=== PATIENT | female | born 1945 | race Caucasian/White ===

== ENCOUNTER 2019-09-25 01:10 | Emergency (ER) | payer MEDICAID, SELFPAY ==
[2019-09-25] VITALS (13 sets, daily range): BP systolic 109–197; BP diastolic 49–97; PULSE 61–84; RESP 14–18; TEMP 37.1–37.4; O2SAT 91–100; BMI 25.8
--- NOTE | 2019-09-25 01:27 | ED_ITS ---
Entered by Delfina Hernandez, acting as scribe for Michael Adamson DO HPI - Abdominal Pain General: Chief Complaint: Abdominal Pain Stated Complaint: N/V Time Seen by Provider: 09/25/19 01:27 History of Present Illness: HPI narrative: 74 yo f came to the er by ems for abd pain. Onset was today. Pt states that she has pain all over her abd and pain in her back. Pt states that she has been throwing up since last wednesday. Pt states that she has had a fever and chills. MD elicited complaint: abdominal pain Pertinent past history: none Onset (ago): day(s) Pain Consistency: constant Location: Other (all over the abd ) Severity: moderate Quality: other (pain) Radiation: back Exacerbating factors: nothing Relieving factors: nothing Associated Symptoms: Reports chills, fever(s), nausea and vomiting; Denies dysuria, hematochezia, hematuria and melena Related Data: Patient : No Review of Systems Const: Reports: fever and chills Eyes: Denies: change in vision or blurry vision ENMT: Denies: painful swallowing, swelling of lips/tongue, bleeding gums, dental pain, Change in hearing, nose bleeds, post nasal drip or facial/sinus pain Card: Denies: chest pain, palpitations, irregular heart rhythm, edema, swelling of feet/ankles, shortness of breath on exertion or shortness of breath when lying down Resp: Denies: shortness of breath, productive cough, non-productive cough or wheezing GI: Reports: nausea and vomiting; Denies: blood in stool or black tarry stool : Denies: painful urination or blood in urine Musc: Denies: neck pain, back pain, redness or joint warmth Skin/Breast: Denies: rash, itching or redness Neuro: Denies: headache, dizziness, vertigo, confusion or seizure-like activity Psych: Denies: anxiety, visual hallucinations or auditory hallucinations PFSH ED PFSH: Statuses (acute, chronic, etc) shown below reflect problem list status as previously entered and may not be historically accurate Social History Smoking and tobacco status: never smoked Physical Exam Const: COMMON NORMALS: alert GENERAL APPEARANCE: well developed ORIENTATION/CONSCIOUSNESS: Yes awake, Yes oriented to person, Yes oriented to place and Yes oriented to time HENMT: COMMON NORMALS: normocephalic, external ears normal, external nose normal and moist oral mucous membranes HEAD & SCALP: normocephalic; no scalp tenderness FACE & SINUS: normal facial exam NOSE: external nose normal and no nasal discharge EXTERNAL EAR: Yes external ears normal MARYANN TH: tongue normal TEETH & GINGIVA: no abnormal tooth and associated gingiva THROAT: posterior oropharynx normal; no peritonsillar mass Eye: COMMON NORMALS: PERRL, EOMs intact bilaterally and conjunctivae normal EYELID: eyelids normal CONJUNCTIVA: Yes conjunctivae normal PUPIL: Yes PERRL Neck/C-Spine: COMMON NORMALS: full ROM GENERAL: Yes anterior neck swelling and No tracheal deviation CERVICAL SPINE: Yes normal cervical lordosis, No cervical spine tenderness, No step off deformity, No paracervical muscle tenderness and No paracervical muscle spasm Chest: COMMONS NORMALS: inspection of chest normal CHEST: Yes symmetrical chest wall rise and No tenderness Resp: COMMON NORMALS: clear to auscultation bilaterally EFFORT & INSPECTION: No tachypneic, No respiratory distress, No retractions, No uses accessory muscles and No tracheal deviation AUSCULTATION: clear to auscultation bilaterally, no rhonchi, no wheezes and lung sounds not diminished Cardio: COMMON NORMALS: regular rate and regular rhythm RATE: regular rate RHYTHM: regular rhythm HEART SOUNDS: no murmurs PERIPHERAL PULSES: radial pulses present GI: INSPECTION: No abdominal distension AUSCULTATION: No hyperactive bowel sounds and No hypoactive bowel sounds PALPATION: No tender, No guarding and N o rigid PERCUSSION: no dullness to percussion and no tympanic to percussion : COMMON NORMALS: Yes no CVA tenderness BLADDER/KIDNEY EXAM: Yes no CVA tenderness Back/Pelvis: COMMON NORMALS: no CVA tenderness PELVIS: Yes no pain with anterior-posterior compression and Yes no pain with lateral compression Neuro: SENSORIUM/ORIENTATION: Yes alert, Yes oriented to person, Yes oriented to place and Yes oriented to time Psych: COMMON NORMALS: mental status grossly normal and speech normal SPEECH: Yes normal speech Skin: COMMON NORMALS: no rashes or lesions noted GENERAL SKIN EXAM: no rashes or lesions noted Course ED course: 74-year-old female essentially with intractable nausea and vomiting with epigastric pain. She has a history of a cholecystectomy. She says that she has had these symptoms before, and been admitted and then released without cause. She presents today with a CT showing a pancreatic head mass, and ductal dilatation of the bile duct and pancreatic duct that are significant. These were not present on a CT several months ago. The concern is that she would need a stent for this. No gastroenterology G service available at this hospital. We spoke with [facility] in [place], who are willing to take the patient, and have accepted, but there are no free beds currently. They will call when a bed is available. The patient will be checked out at shift change. Vital Signs: Vital signs: Vital Signs Temperature 98.7 F 09/25/19 03:40 Pulse Rate 61 09/25/19 06:02 Respiratory Rate 18 09/25/19 06:02 Blood Pressure 114/77 09/25/19 06:02 Pulse Oximetry 93 09/25/19 06:02 MDM - Abdominal Pain Lab Data: Labs: Lab Results 09/25/19 09/25/19 09/25/19 Range/Units 01:19 01:46 01:46 WBC 10.4 H (4.0-10.0) 10^3/ uL RBC 5.01 (4.1-5.3) 10^6/u L Hgb 14.2 (11.5-15.3) g/dL Hct 40.7 (37.0-47.0) % MCV 81.2 (81-99) fL MCH 28.3 (28.0-34.0) pg MCHC 34.9 (30.0-36.0) g/dL RDW 12.2 (12.1-15.1) % Plt Count 318 (130-400) 10^3/c mm MPV 9.2 (7.4-10.4) fL Neut % (Auto) 73.8 % Lymph % (Auto) 18.6 % [place] % (Auto) 6.7 % Eos % (Auto) 0.1 % Baso % (Auto) 0.5 % Neut # (Auto) 7.7 (1.8-7.7) 10^3/u L Lymph # (Auto) 1.9 (0.8-4.8) 10^3/u L [place] # (Auto) 0.7 (0.2-0.9) 10^3/u L Eos # (Auto) 0.0 (0.0-0.8) 10^3/u L Baso # (Auto) 0.1 (0.0-0.1) 10^3/u L Nucleated RBC % (a uto) 0 % Nucleated RBCs # 0.0 /100WBC Sodium 137 (136-145) mmol/L Potassium 3.2 L (3.5-5.1) mmol/L Chloride 99 (98-107) mmol/L Carbon Dioxide 20 L (22-29) mmol/L Anion Gap 21.2 H (5-19) BUN 19 (8-23) mg/dL Creatinine 0.6 (0.5-0.9) mg/dL Glucose 153 H (74-106) mg/dL Calcium 11.0 H (8.8-10.2) mg/Dl Total Bilirubin 1.3 H (0.15-1.2) mg/dL AST 16 (0-32) U/L ALT 12 (0-33) U/L Alkaline Phosphata se 165 H (35-105) IU/L Total Protein 8.0 (6.6-8.7) g/dL Albumin 5.1 (3.5-5.2) g/dL Globulin 2.9 (1.3-4.6) g/dL Lipase 12 L (13-60) U/L Urine Color Yellow (Yellow) Urine Appearance Cloudy (CLEAR) Urine pH 6.5 (5-7) Ur Specific Gravit y 1.015 (1.005-1.030) Urine Protein 3+ H (Negative) Urine Glucose (UA) Norm (Normal) Urine Ketones 3+ H (Negative) Urine Occult Blood 2+ H (Negative) Urine Nitrate Negative (Negative) Urine Bilirubin Neg (NEGATIVE) Urine Urobilinogen 1 H (Negative) mg/dL Ur Leukocyte Stephanie ase 1+ H (Negative) Urine RBC 0-4 H (0-2) /hpf Urine WBC 5-10 H (0-5) /hpf Ur Squamous Epith Cells 5-10 H (0-5) Urine Bacteria 1+ H (NONE) Urine Mucus 1+ Coding Level of Care Code ED Concession Cashier for g Fwd The documentation recorded by the [place] Stephanie Lyn, accurately reflects the service I personally performed and the decisions made by me, Michael Adamson, DO Sep 25, 2019 01:10
--- NOTE | 2019-09-25 01:37 | CTR_ITS ---
PROCEDURE INFORMATION: Exam: CT Abdomen And Pelvis With Contrast Exam date and time: 09/25/2019 1:48 AM Age: 74 years old Clinical indication: Abdominal pain; Generalized; Prior surgery; Surgery date: 6+ months; Surgery type: Gb, hyst, appy; Additional info: Abd pain TECHNIQUE: Imaging protocol: Computed tomography of the abdomen and pelvis with intravenous contrast. Total DLP: 690.6 mGy-cm Radiation optimization: All CT scans at this facility use at least one of these dose optimization techniques: automated exposure control; mA and/or kV adjustment per patient size (includes targeted exams where dose is matched to clinical indication); or iterative reconstruction. Contrast material: OMNI 300; Contrast volume: 95 ml; Contrast route: IV; COMPARISON: CT abdomen pelvis w con* [id number] 11/15/2018 6:17 PM FINDINGS: Lungs: There are small pulmonary nodularity seen bilaterally, the largest are seen on the left measuring up to 6.7 mm. Mediastinum: There is a small hiatal hernia. Liver: Normal. No mass. Gallbladder and bile ducts: Status post cholecystectomy. The the common bile duct is dilated to 9.7 mm. Additionally, the main pancreatic duct is greatly enlarged measuring up to 9.3 mm distally. There is a soft tissue attenuation mass seen in the pancreatic head worrisome for a primary pancreatic malignancy. It measures 2.1 cm AP dimension by 2.4 cm transverse dimension by 2.8 cm craniocaudal dimension. Pancreas: See Gallbladder And Bile Ducts Finding. Spleen: Normal. No splenomegaly. Adrenals: Normal. No mass. Kidneys and ureters: There is a 6 mm simple appearing cyst seen in the left kidney. Stomach and bowel: Unremarkable. No obstruction. No mucosal thickening. Appendix: The status post appendectomy. Intraperitoneal space: Unremarkable. No free air. No significant fluid collection. Vasculature: Unremarkable. No abdominal aortic aneurysm. Lymph nodes: Unremarkable. No enlarged lymph nodes. Bladder: Unremarkable as visualized. Reproductive: Status post hysterectomy. Bones/joints: Unremarkable. No acute fracture. Soft tissues: Unremarkable. CT/CT abdomen pelvis w con* [id number] IMPRESSION: 1. There is prominent dilatation of the common bile duct and main pancreatic duct likely secondary to an obstructive mass within the pancreatic head. A primary pancreatic malignancy is of concern. 2. Simple appearing 6 mm left renal cyst. No further workup needed. 3. Multiple small pulmonary nodularity is seen, slightly more numerous on the left, the largest measuring 6.7 mm.For patients at low risk (minimal or absent history of smoking and of other known risk factors), recommend CT at 3-6 months, then consider CT at 18-24 months. For patients at high risk (history of smoking or of other known risk factors), recommend CT at 3-6 months, then CT at 18-24 months. (Vera et al., Fleischner Society, 2017) COMMENT: Consistent with the [employer]'s Incidental Findings Committee Report (J Am Jose Radiol 2010): Unless the patient's specific circumstances suggest otherwise, any liver lesion 0.5 cm or less, any cystic kidney lesion less than 1.0 cm, and/or any adrenal lesion 1.0 cm or less not otherwise characterized in this report as possessing suspicious or indeterminate imaging features is/are highly likely to be benign and do not require follow-up imaging or biopsy. Radiation Dose CTDIVOL = (mGy): DLP = 690.6 (mGy-cm)
[2019-09-25 01:54] LABS: Bacteria Urine 1+; Bilirubin Urine Neg (NEGATIVE); Blood Urine 2+ (Negative); Glucose Urine UA Norm (Normal); Ketones Urine 3+ (Negative); Leukocyte Esterase Urine 1+ (Negative); Mucus Urine 1+; Nitrate Urine Negative (Negative); Protein Urine 3+ (Negative); RBC Urine 0-4 /hpf (0-2); Specific Gravity, Urine 1.015 (1.005-1.030); Urine Appearance Cloudy (CLEAR); Urine Color Yellow (Yellow); Urobilinogen Urine 1 mg/dL (Negative); pH Urine 6.5 (5-7)
[2019-09-25] MEDS: morphine 4 mg/mL SDV 1 mL IVP ×2 (01:56→10:38)
[2019-09-25] MEDS: ondansetron 2 mg/ML SDV 2 mL 4 MG IVP ×2 (01:56→17:19)
[2019-09-25] MEDS: sodium chloride 0.9% 1,000 ML 999 ML IV (01:56)
[2019-09-25 01:57] LABS: Basophils # 0.1 10^3/uL (0.0-0.1); Basophils % 0.5 %; Eosinophils % 0.1 %; Hematocrit 40.7 % (37.0-47.0); Hemoglobin 14.2 g/dL (11.5-15.3); Lymphocytes # 1.9 10^3/uL (0.8-4.8); Lymphocytes % 18.6 %; Mean Corpuscular HGB Conc 34.9 g/dL (30.0-36.0); Mean Corpuscular Hemoglobin 28.3 pg (28.0-34.0); Mean Corpuscular Volume 81.2 fL (81-99); Mean Platelet Volume 9.2 fL (7.4-10.4); Monocytes # 0.7 10^3/uL (0.2-0.9); Monocytes % 6.7 %; Neutrophils # 7.7 10^3/uL (1.8-7.7); Neutrophils % 73.8 %; Nucleated Red Blood Cells % 0 %; Platelet Count 318 10^3/cmm (130-400); Red Blood Count 5.01 10^6/uL (4.1-5.3); Red Cell Distribution Width 12.2 % (12.1-15.1); White Blood Count 10.4 10^3/uL (4.0-10.0)
--- NOTE | 2019-09-25 02:02 | PC.NURSE ---
Introduced self to patient and initiated vital signs. Pt is A&O x 4 and agreeable. Pt states that the reason for the ER visit today is due to vomiting and dry heaving since last PM. Pt also complaining of abdominal pain from vomiting. Reassured patient of needs and will continue to monitor. Awaiting provider at bedside.
[2019-09-25 02:10] LABS: Alanine Aminotransferase 12 U/L (0-33); Albumin Level 5.1 g/dL (3.5-5.2); Alkaline Phosphatase 165 IU/L (35-105); Anion Gap 21.2 (5-19); Aspartate Amino Transferase 16 U/L (0-32); Blood Urea Nitrogen 19 mg/dL (8-23); Carbon Dioxide 20 mmol/L (22-29); Chloride 99 mmol/L (98-107); Globulin 2.9 g/dL (1.3-4.6); Glucose 153 mg/dL (74-106); Lipase 12 U/L (13-60); Potassium 3.2 mmol/L (3.5-5.1); Sodium 137 mmol/L (136-145); Total Bilirubin 1.3 mg/dL (0.15-1.2)
[2019-09-25] MEDS: iohexol 300 mg/mL 100 mL Btl IV (03:45)
[2019-09-25 06:23] LABS: Urine Appearance Clear (CLEAR); Urine Color Yellow (Yellow); pH Urine 8 (5-7)
[2019-09-25] MEDS: fentaNYL 50 mcg/mL INJ 2mL IVP ×2 (06:23→17:20)
[2019-09-25 06:24] LABS: Add Urine Microscopic? YES; Bilirubin Urine Neg (NEGATIVE); Blood Urine Neg (Negative); Glucose Urine UA Norm (Normal); Ketones Urine 1+ (Negative); Leukocyte Esterase Urine Negative (Negative); Nitrate Urine Negative (Negative); Protein Urine 1+ (Negative); Sulfosalicylic Acid Urine Negative; Urobilinogen Urine Norm (Negative)
--- NOTE | 2019-09-25 19:07 | PC.NURSE ---
REPORT RECEIVED FROM JULIA JAMES AND CARE TRANSFERRED TO JULIA LEZAMA
== END 2019-09-25 19:41 ==
PROVIDERS: Emergency Provider Emergency Medicine; Family Provider Nurse Practitioner Primary Care
DX: R10.9 Unspecified abdominal pain (principal)
CPT/HCPCS: 74177; 80053; 81001; 81003; 83690; 85025; 96360; 96374; 99283; J2270; J2405; J3010; J7030; Q9967

== ENCOUNTER 2019-10-03 14:21 | Emergency (ER) | payer MEDICAID, SELFPAY ==
[2019-10-03] VITALS (10 sets, daily range): BP systolic 116–185; BP diastolic 60–112; PULSE 63–80; RESP 14–22; TEMP 36.4–37.8; O2SAT 94–99; BMI 25.0
[2019-10-03 14:56] LABS: Basophils # 0.1 10^3/uL (0.0-0.1); Basophils % 0.9 %; Eosinophils # 0.2 10^3/uL (0.0-0.8); Eosinophils % 2.2 %; Hematocrit 41.3 % (37.0-47.0); Hemoglobin 14.4 g/dL (11.5-15.3); Lymphocytes # 1.7 10^3/uL (0.8-4.8); Lymphocytes % 21.9 %; Mean Corpuscular HGB Conc 34.9 g/dL (30.0-36.0); Mean Corpuscular Hemoglobin 28.3 pg (28.0-34.0); Mean Corpuscular Volume 81.1 fL (81-99); Mean Platelet Volume 9.1 fL (7.4-10.4); Monocytes # 0.5 10^3/uL (0.2-0.9); Monocytes % 6.5 %; Neutrophils # 5.3 10^3/uL (1.8-7.7); Nucleated Red Blood Cells % 0 %; Platelet Count 349 10^3/cmm (130-400); Red Blood Count 5.09 10^6/uL (4.1-5.3); Red Cell Distribution Width 12.1 % (12.1-15.1); White Blood Count 7.8 10^3/uL (4.0-10.0)
[2019-10-03 14:57] LABS: Add Urine Microscopic? NO
[2019-10-03 15:04] LABS: Bilirubin Urine Neg (NEGATIVE); Blood Urine Neg (Negative); Glucose Urine UA Norm (Normal); Ketones Urine 1+ (Negative); Leukocyte Esterase Urine Negative (Negative); Nitrate Urine Negative (Negative); Protein Urine Neg (Negative); Urine Appearance Clear (CLEAR); Urine Color Yellow (Yellow); Urobilinogen Urine Norm (Negative); pH Urine 7 (5-7)
--- NOTE | 2019-10-03 15:09 | W.ED.ABDPA2 ---
HPI - Abdominal Pain General: Chief Complaint: Abdominal Pain Stated Complaint: N/V Time Seen by Provider: 10/03/19 14:23 Review of Systems Musc: Denies: joint warmth PFSH ED PFSH: Statuses (acute, chronic, etc) shown below reflect problem list status as previously entered and may not be historically accurate Social History Smoking and tobacco status: never smoked Course Vital Signs: Vital signs: Vital Signs Temperature 100.1 F H 10/03/19 14:27 Pulse Rate 80 10/03/19 14:27 Respiratory Rate 16 10/03/19 14:27 Blood Pressure 185/99 10/03/19 14:27 Pulse Oximetry 98 10/03/19 14:27 MDM - Abdominal Pain Lab Data: Labs: Lab Results 10/03/19 10/03/19 Range/Units 14:30 14:30 WBC 7.8 (4.0-10.0) 10^3/ uL RBC 5.09 (4.1-5.3) 10^6/u L Hgb 14.4 (11.5-15.3) g/dL Hct 41.3 (37.0-47.0) % MCV 81.1 (81-99) fL MCH 28.3 (28.0-34.0) pg MCHC 34.9 (30.0-36.0) g/dL RDW 12.1 (12.1-15.1) % Plt Count 349 (130-400) 10^3/c mm MPV 9.1 (7.4-10.4) fL Neut % (Auto) 68.0 % Lymph % (Auto) 21.9 % [place] % (Auto) 6.5 % Eos % (Auto) 2.2 % Baso % (Auto) 0.9 % Neut # (Auto) 5.3 (1.8-7.7) 10^3/u L Lymph # (Auto) 1.7 (0.8-4.8) 10^3/u L [place] # (Auto) 0.5 (0.2-0.9) 10^3/u L Eos # (Auto) 0.2 (0.0-0.8) 10^3/u L Baso # (Auto) 0.1 (0.0-0.1) 10^3/u L Nucleated RBC % (a uto) 0 % Nucleated RBCs # 0.0 /100WBC Urine Color Yellow (Yellow) Urine Appearance Clear (CLEAR) Urine pH 7 (5-7) Ur Specific Gravit y 1.010 (1.005-1.030) Urine Protein Neg (Negative) Urine Glucose (UA) Norm (Normal) Urine Ketones 1+ H (Negative) Urine Occult Blood Neg (Negative) Urine Nitrate Negative (Negative) Urine Bilirubin Neg (NEGATIVE) Urine Urobilinogen Norm (Negative) mg/dL Ur Leukocyte Stephanie ase Negative (Negative) Discharge Plan Discharge Prescriptions: No Action cetirizine 10 mg Tablet 10 mg PO DAILY RF: 0 omeprazole 40 mg Capsule,Delayed Release(Dr/Ec) 40 mg PO DAILY RF: 0 levothyroxine 88 mcg Tablet 88 mcg PO DAILY RF: 0 trazodone 150 mg Tablet 150 mg PO BEDTIME PRN (Reason: Sleep) RF: 0 fluticasone propionate [Flonase Allergy Relief] 50 mcg/actuation [place],Suspension 1 spray INTRANASAL BID PRN (Reason: UNKNOWN) RF: 0 duloxetine [Cymbalta] 30 mg Capsule,Delayed Release(Dr/Ec) 30 mg PO DAILY RF: 0 darifenacin [Enablex] 7.5 mg Tablet Extended Release 24 Hr 7.5 mg PO DAILY RF: 0 Miralax 17 gram Powder In Packet 17 g PO DAILY PRN (Reason: Constipation) RF: 0 amlodipine 5 mg Tablet 5 mg PO DAILY RF: 0 Coding Level of Care Code ED [employer] Chief Scientist for Ezra Molina
[2019-10-03 15:13] LABS: Alanine Aminotransferase 15 U/L (0-33); Albumin Level 4.6 g/dL (3.5-5.2); Alkaline Phosphatase 139 IU/L (35-105); Anion Gap 20.5 (5-19); Aspartate Amino Transferase 16 U/L (0-32); Blood Urea Nitrogen 16 mg/dL (8-23); Calcium 10.9 mg/Dl (8.8-10.2); Carbon Dioxide 21 mmol/L (22-29); Chloride 97 mmol/L (98-107); Globulin 3.9 g/dL (1.3-4.6); Glucose 137 mg/dL (74-106); Lipase 66 U/L (13-60); Potassium 3.5 mmol/L (3.5-5.1); Sodium 135 mmol/L (136-145); Total Bilirubin 0.9 mg/dL (0.15-1.2); Total Protein 8.5 g/dL (6.6-8.7)
[2019-10-03] MEDS: HYDROmorphone 1 mg/mL INJ 1 mL 0.5 MG IVP (15:47)
--- NOTE | 2019-10-03 16:14 | ED_ITS ---
HPI - Abdominal Pain General: Chief Complaint: Abdominal Pain Stated Complaint: N/V Time Seen by Provider: 10/03/19 14:23 Source: patient Mode of arrival: ambulatory Limitations: no limitations History of Present Illness: HPI narrative: Patient is a 74-year-old female who presents to ED today with complaints of continued abdominal pain, nausea, intermittent vomiting; patient presented to our facility approximately a week ago for similar symptoms and had a CT scan which showed a mass on her pancreatic head; she was subsequently transferred to [place] and had a pancreatic stent placed; patient states she was discharged home on pain medications and a follow- up visit in approximately a week for them to surgically remove mass; patient states her pain medications with oxycodone but states when she took one it made her nausea and vomiting worse and hyped her up so she threw them away; patient states her abdominal pain today is not any worse than what she has had since ons et; reports her nausea and vomiting is not any worse; she has not been running fevers; having normal bowel movements; urinary symptoms MD elicited complaint: abdominal pain Pertinent past history: other (Recent diagnosis of pancreatic head mass) Onset (ago): week(s) Pain Consistency: constant Location: Diffuse Exacerbating factors: eating Associated Symptoms: Reports nausea and vomiting; Denies change in bowel habits, chills, dysuria, fever(s), hematemesis, fecal incontinence and syncope Review of Systems Const: Denies: fever or chills Eyes: Denies: change in vision or blurry vision Card: Denies: chest pain, palpitations, irregular heart rhythm, lightheadedness, syncope or shortness of breath on exertion Resp: Denies: shortness of breath, productive cough or pain on inspiration GI: Reports: abdominal pain, nausea and vomiting; Denies: vomiting blood, fecal incontinence, change in bowel habits or painful bowel movements : Denies: painful urination Musc: Denies: neck pain, back pain or joint pain Skin/Breast: Denies: rash PFSH ED PFSH: Statuses (acute, chronic, etc) shown below reflect problem list status as previously entered and may not be historically accurate Social History Smoking and tobacco status: never smoked Physical Exam Const: COMMON NORMALS: no apparent distress, oriented x3, alert and well nourished HENMT: COMMON NORMALS: normocephalic and head/scalp atraumatic HEAD & SCALP: normocephalic and atraumatic Neck/C-Spine: COMMON NORMALS: full ROM, no lymphadenopathy, supple and no meningeal signs Chest: COMMONS NORMALS: inspection of chest normal Resp: COMMON NORMALS: normal respiratory effort and clear to auscultation bilaterally AUSCULTATION: clear to auscultation bilaterally Cardio: COMMON NORMALS: regular rate and regular rhythm RATE: regular rate RHYTHM: regular rhythm GI: COMMON NORMALS: normal to inspection, nondistended, normoactive bowel sounds, soft to palpation, no hepatosplenomegaly and no masses PALPATION: Yes soft, Yes tender (mild throughout; non-surgical abdomen ) and Yes no hepatosplenomegaly : COMMON NORMALS: Yes no CVA tenderness BLADDER/KIDNEY EXAM: Yes no CVA tenderness Back/Pelvis: COMMON NORMALS: no CVA tenderness and thoracic and lumbar spine normal to inspection Extremity: COMMON NORMALS: normal to inspection Neuro: COMMON NORMALS: oriented x3 SENSORIUM/ORIENTATION: Yes alert MENINGEAL SIGNS: Yes no meningeal signs Skin: COMMON NORMALS: no rashes or lesions noted GENERAL SKIN EXAM: no rashes or lesions noted Course Vital Signs: Vital signs: Vital Signs Temperature 98.7 F 10/04/19 08:29 Pulse Rate 64 10/04/19 08:29 Respiratory Rate 18 10/04/19 08:29 Blood Pressure 136/87 10/04/19 08:29 Pulse Oximetry 97 10/04/19 08:29 MDM - Abdominal Pain MDM Narrative: Medical decision making narrative: pt holding down crackers/ice cream here; she appears in NAD; no episodes of vomiting throughout her stay; labs are non-concerning; lipase is 66; she is afebrile; reviewed with Dr. Watts who agrees there is no reason for repeat CT scan today as she states her symptoms are not worsening in any way following her pancreatic stent. Recommend she contact [facility] tomorrow for further instructions. Lab Data: Labs: Lab Results 10/03/19 10/03/19 10/03/19 Range/Units 14:30 14:30 14:30 WBC 7.8 (4.0-10.0) 10^3/ uL RBC 5.09 (4.1-5.3) 10^6/u L Hgb 14.4 (11.5-15.3) g/dL Hct 41.3 (37.0-47.0) % MCV 81.1 (81-99) fL MCH 28.3 (28.0-34.0) pg MCHC 34.9 (30.0-36.0) g/dL RDW 12.1 (12.1-15.1) % Plt Count 349 (130-400) 10^3/c mm MPV 9.1 (7.4-10.4) fL Neut % (Auto) 68.0 % Lymph % (Auto) 21.9 % [place] % (Auto) 6.5 % Eos % (Auto) 2.2 % Baso % (Auto) 0.9 % Neut # (Auto) 5.3 (1.8-7.7) 10^3/u L Lymph # (Auto) 1.7 (0.8-4.8) 10^3/u L [place] # (Auto) 0.5 (0.2-0.9) 10^3/u L Eos # (Auto) 0.2 (0.0-0.8) 10^3/u L Baso # (Auto) 0.1 (0.0-0.1) 10^3/u L Nucleated RBC % (a uto) 0 % Nucleated RBCs # 0.0 /100WBC Sodium 135 L (136-145) mmol/L Potassium 3.5 (3.5-5.1) mmol/L Chloride 97 L (98-107) mmol/L Carbon Dioxide 21 L (22-29) mmol/L Anion Gap 20.5 H (5-19) BUN 16 (8-23) mg/dL Creatinine 0.7 (0.5-0.9) mg/dL Glucose 137 H (74-106) mg/dL Calcium 10.9 H (8.8-10.2) mg/Dl Total Bilirubin 0.9 (0.15-1.2) mg/dL AST 16 (0-32) U/L ALT 15 (0-33) U/L Alkaline Phosphata se 139 H (35-105) IU/L Total Protein 8.5 (6.6-8.7) g/dL Albumin 4.6 (3.5-5.2) g/dL Globulin 3.9 (1.3-4.6) g/dL Lipase 66 H (13-60) U/L Urine Color Yellow (Yellow) Urine Appearance Clear (CLEAR) Urine pH 7 (5-7) Ur Specific Gravit y 1.010 (1.005-1.030) Urine Protein Neg (Negative) Urine Glucose (UA) Norm (Normal) Urine Ketones 1+ H (Negative) Urine Occult Blood Neg (Negative) Urine Nitrate Negative (Negative) Urine Bilirubin Neg (NEGATIVE) Urine Urobilinogen Norm (Negative) mg/dL Ur Leukocyte Stephanie ase Negative (Negative) Discharge Plan Discharge Patient Disposition: Home, Self-Care Clinical Impression: Mass of pancreas Condition: Stable Prescriptions: New hydrocodone-acetaminophen 5-325 mg tablet 1 tab PO Q6H PRN (Reason: pain) Qty: 20 RF: 0 No Action cetirizine 10 mg Tablet 10 mg PO DAILY RF: 0 omeprazole 40 mg Capsule,Delayed Release(Dr/Ec) 40 mg PO DAILY RF: 0 levothyroxine 88 mcg Tablet 88 mcg PO DAILY RF: 0 trazodone 150 mg Tablet 150 mg PO BEDTIME PRN (Reason: Sleep) RF: 0 fluticasone propionate [Flonase Allergy Relief] 50 mcg/actuation [place],Suspension 1 spray INTRANASAL BID PRN (Reason: UNKNOWN) RF: 0 duloxetine [Cymbalta] 30 mg Capsule,Delayed Release(Dr/Ec) 30 mg PO DAILY RF: 0 darifenacin [Enablex] 7.5 mg Tablet Extended Release 24 Hr 7.5 mg PO DAILY RF: 0 Miralax 17 gram Powder In Packet 17 g PO DAILY PRN (Reason: Constipation) RF: 0 amlodipine 5 mg Tablet 5 mg PO DAILY RF: 0 Discharge Orders: Discharge Order (Routine); Ordered 10/03/19 Ordered By: Monica Canela Referrals: Fiona Henriquez CALL CENTER ASSISTANT [Family Provider] - Discharge Diet: Advance as tolerated Activity Restrictions/Additional Instructions: You need to contact [facility] tomorrow and speak to the surgeon's office that is scheduled to perform your surgery and see if they can possible move your surgery up due to discomfort. Continue taking your nausea meds as needed for nausea/vomiting. Dittmer diet may help. Try taking pain medications when you have food on your stomach-this may cut down on the unwanted side effects from the pain medications Coding Level of Care Code ED Scheduling Assistant for Chg Fwd Exam Problem Focused
--- NOTE | 2019-10-03 16:18 | PC.NURSE ---
PHYSICAL ASSESSMENT GENERAL / NEURO / PSYCH: Alert. Oriented X 4. GCS:15 HEENT: Mucous membranes are pink. RESPIRATORY: Respiration not labored. Breath sounds within normal limits. GI / : Abdomen soft and tender in the upper quadrants ( Bowel sounds within normal limits. Reports episodes of nausea and vomiting. Denies difficulties with urine or bowel elimination. SKIN: Skin is warm and dry
--- NOTE | 2019-10-03 16:27 | ECG_ITS ---
Measurements Intervals [facility] Rate: 72 P: 124 DC: 141 QRS: -62 QRSD: 98 T: 131 QT: 397 QTc: 435 ECTOPIC ATRIAL RHYTHM PATTERN CONSISTENT WITH PULMONARY DISEASE INCOMPLETE RIGHT BUNDLE BRANCH BLOCK [90+ ms QRS DURATION, TERMINAL R IN V1/V2, 40+ ms S IN I/aVL/V4/V5/V6] LEFT ANTERIOR FASCICULAR BLOCK [QRS AXIS <= -45, QR IN I, RS IN II] MODERATE ST DEPRESSION [0.05+ mV ST DEPRESSION] ABNORMAL QRS-T ANGLE [QRS-T AXIS DIFFERENCE > 60] Compared to ECG 11/15/2018 17:17:46 Ectopic atrial rhythm now present ST (T wave) deviation now present Sinus bradycardia no longer present Electronically Signed On 10-03-2019 22:09:25 BLACKSMITH SUPERVISOR by Madhu Chen M.D. [email or web address]
[2019-10-03] MEDS: sodium chloride 0.9% 1,000 ML 999 ML IV (17:02)
--- NOTE | 2019-10-03 18:12 | PC.NURSE ---
Patient resting. Still waiting for ride.
--- NOTE | 2019-10-03 18:14 | PC.NURSE ---
Patient reports significant improvement with GI Cocktail.
--- NOTE | 2019-10-03 19:22 | PC.NURSE ---
Introduced self to patient and initiated vital signs. Pt is A&O x 3 and agreeable. Pt states that the reason for the ER visit today is due to abdominal pain. Pt states that she feeling better at present and is trying to get some rest. Reassured patient of needs and will continue to monitor. Awaiting transportation.
[2019-10-04 01:00] VITALS: BP 148/61; PULSE 80; RESP 16; O2SAT 94
[2019-10-04] MEDS: HYDROcodone-acetaminophen 5-325 mg Tablet 1 TAB PO (01:31)
--- NOTE | 2019-10-04 06:01 | PC.NURSE ---
PATIENT REQUESTED [facility] JUICE AND WAS BROUGHT JUICE BY NURSE.
[2019-10-04 08:29] VITALS: BP 136/87; PULSE 64; RESP 18; TEMP 37.1; O2SAT 97
--- NOTE | 2019-10-04 08:31 | PC.NURSE ---
PT IS STILL WAITING IN ROOM FOR A RIDE. [facility] CALLED AND THEY DO NOT KNOW ANYTHING ABOUT THE TRIP. [facility] CALLED THEY STATE THAT THE PT WAS PICKED UP LAST NIGHT BUT COULD NOT BE DELIVERED D/T A WRONG ADDRESS. NEW RIDE SET UP AND CONFIRMATION NUMBER IS [id number]
--- NOTE | 2019-10-04 10:19 | PC.NURSE ---
PT STILL WAITING ON A RIDE. CALLED [facility] AGAIN AND THEY STATE THAT THE TAX COMPLIANCE REPRESENTATIVE CANNOT FIND THE ADDRESS OF THE PT. AFTER A 25MIN PHONE CALL WILIAM STATED THAT THEY WOULD HAVE TO FIND ANOTHER TRANSPORTATION SERVICE BECAUSE [facility] DOESN'T GO INTO THIS AREA. I CONTACTED [facility] AND THEY ARE GOING TO TRY TO EXPEDITE THE RIDE.
--- NOTE | 2019-10-04 11:48 | PC.NURSE ---
PT GIVEN A LUNCH TRAY AT THIS TIME. PT UPDATED ON HER RIDE. NO NEW CONCERNS AT THIS TIME
[2019-10-04 13:38] VITALS: BP 124/75; PULSE 68; RESP 18; O2SAT 97
== END 2019-10-04 13:39 | disposition home or self-care (01) ==
PROVIDERS: Emergency Provider Physician Assistant; Family Provider Nurse Practitioner Primary Care
DX: K86.9 Disease of pancreas, unspecified (principal)
CPT/HCPCS: 80053; 81003; 83690; 85025; 93005; 96360; 96374; 99282; J1170; J7030

== ENCOUNTER 2019-10-05 15:19 | Emergency (ER) | payer MEDICAID, SELFPAY ==
--- NOTE | 2019-10-05 15:13 | W.ED.NAVMDI ---
HPI - Nausea/Vomiting/Diarrhea General: Chief complaint: Abdominal Pain Stated complaint: N/V/ ABDOMINAL PAIN Source: patient Mode of arrival: ambulatory Limitations: no limitations History of Present Illness: HPI Narrative: Patient comes in for persistent nausea and vomiting. Patient was diagnosed at the beginning of the month with a pancreatic mass and was referred to [facility] for a stent placement. Patient had a stent placed and was doing well and released to home. Since returning to her home she has become more nauseous and vomiting. Patient was seen again yesterday in the emergency department for similar symptoms and was recommended to go home and try clear liquid diet along with medications for pain. Patient comes in today for persistent nausea and vomiting and needing IV fluids she states. Patient appears unwell. Patient appears in mild to moderate epigastric pain. Associated nausea: Yes Associated symtoms: Reports nausea Review of Systems General: Reports: 10 or more systems reviewed and unremarkable except in HPI and below GI: Reports: nausea and vomiting PFSH ED PFSH: Statuses (acute, chronic, etc) shown below reflect problem list status as previously entered and may not be historically accurate Social History Smoking and tobacco status: never smoked Physical Exam Const: COMMON NORMALS: no apparent distress and oriented x3 GENERAL APPEARANCE: cooperative HENMT: COMMON NORMALS: normocephalic, external ears normal, EAC's normal, TM's normal bilaterally and external nose normal HEAD & SCALP: normal to inspection and normocephalic FACE & SINUS: normal facial exam NOSE: external nose normal GENERAL EAR: hearing not grossly impaired EXTERNAL EAR: Yes external ears normal EXTERNAL AUDITORY CANAL: EAC's normal TYMPANIC MEMBRANE: TM's normal bilaterally MOUTH: oral and palatal mucosa normal THROAT: posterior oropharynx normal Eye: COMMON NORMALS: PERRL and EOMs intact bilaterally PUPIL: Yes PERRL Neck/C-Spine: COMMON NORMALS: full ROM and no lymphadenopathy Lymph: LYMPHATIC: no lymphedema noted Chest: COMMONS NORMALS: inspection of chest normal and palpation of chest normal Resp: COMMON NORMALS: normal respiratory effort and clear to auscultation bilaterally AUSCULTATION: clear to auscultation bilaterally Cardio: COMMON NORMALS: regular rate and regular rhythm RATE: regular rate RHYTHM: regular rhythm GI: COMMON NORMALS: soft to palpation PALPATION: Yes soft and Yes tender (epigastric) : COMMON NORMALS: Yes no CVA tenderness BLADDER/KIDNEY EXAM: Yes no CVA tenderness Back/Pelvis: COMMON NORMALS: no CVA tenderness and thoracic and lumbar spine normal to inspection Extremity: COMMON NORMALS: normal to inspection GENERAL: No edema Neuro: COMMON NORMALS: oriented x3, moves all extremities and no focal motor deficits Psych: COMMON NORMALS: mental status grossly normal and cooperative Skin: COMMON NORMALS: no rashes or lesions noted GENERAL SKIN EXAM: no rashes or lesions noted Course Vital Signs: Vital signs: Vital Signs Pulse Rate 65 10/05/19 17:54 Respiratory Rate 16 10/05/19 17:54 Blood Pressure 141/89 10/05/19 17:54 Pulse Oximetry 98 10/05/19 17:54 MDM - Nausea/Vomiting/Diarrhea MDM Narrative: Medical decision making narrative: Patient comes in today by EMS for complaints of nausea and vomiting. Patient has a history of a pancreatic mass and had a recent stent placement to alleviate pain and symptoms. On exam patient has a soft abdomen with good bowel sounds. Does have some midepigastric tenderness. Skin is warm and dry color is pink. Patient appears in no acute distress. Differential diagnosis includes bowel obstruction, pancreatitis, cholecystitis, urinary tract infection, renal colic, malingering. Laboratory values were similar if not more improved than yesterday. Lipase has improved from 66-21. Urinalysis is clear. Patient was given IV fluids and IV Zofran and morphine for pain and discomfort. Patient had improvement after treatment. We will switch patient's Zofran to promethazine for more improvement in her nausea. Patient was recommended to follow-up with primary care for further treatment. Lab Data: Labs: Lab Results 10/05/19 10/05/19 10/05/19 Range/Units 15:27 15:27 17:22 WBC 10.1 H (4.0-10.0) 10^3/ uL RBC 5.00 (4.1-5.3) 10^6/u L Hgb 14.3 (11.5-15.3) g/dL Hct 41.6 (37.0-47.0) % MCV 83.2 (81-99) fL MCH 28.6 (28.0-34.0) pg MCHC 34.4 (30.0-36.0) g/dL RDW 12.1 (12.1-15.1) % Plt Count 347 (130-400) 10^3/c mm MPV 8.9 (7.4-10.4) fL Neut % (Auto) 77.0 % Lymph % (Auto) 15.0 % [place] % (Auto) 6.5 % Eos % (Auto) 0.4 % Baso % (Auto) 0.7 % Neut # (Auto) 7.8 H (1.8-7.7) 10^3/u L Lymph # (Auto) 1.5 (0.8-4.8) 10^3/u L [place] # (Auto) 0.7 (0.2-0.9) 10^3/u L Eos # (Auto) 0.0 (0.0-0.8) 10^3/u L Baso # (Auto) 0.1 (0.0-0.1) 10^3/u L Nucleated RBC % (a uto) 0 % Nucleated RBCs # 0.0 /100WBC Sodium 134 L (136-145) mmol/L Potassium 3.4 L (3.5-5.1) mmol/L Chloride 100 (98-107) mmol/L Carbon Dioxide 16 L (22-29) mmol/L Anion Gap 21.4 H (5-19) BUN 11 (8-23) mg/dL Creatinine 0.6 (0.5-0.9) mg/dL Glucose 142 H (74-106) mg/dL Calcium 10.6 H (8.5-10.5) mg/dL Total Bilirubin 1.1 (0.15-1.2) mg/dL AST 16 (0-32) U/L ALT 15 (0-33) U/L Alkaline Phosphata se 139 H (35-105) IU/L Total Protein 7.4 (6.6-8.7) g/dL Albumin 4.9 (3.5-5.2) g/dL Globulin 2.5 (1.3-4.6) g/dL Lipase 20 (13-60) U/L Urine Color Straw (Yellow) Urine Appearance Clear (CLEAR) Urine pH 9 H (5-7) Ur Specific Gravit y 1.015 (1.005-1.030) Urine Protein Neg (Negative) Urine Glucose (UA) Norm (Normal) Urine Ketones 1+ H (Negative) Urine Occult Blood Neg (Negative) Urine Nitrate Negative (Negative) Urine Bilirubin Neg (NEGATIVE) Prot Sulfosalicyli c Acd Negative Urine Urobilinogen Norm (Negative) mg/dL Ur Leukocyte Stephanie ase Negative (Negative) Urine RBC None (0-2) /hpf Urine WBC Rare (0-5) /hpf Ur Squamous Epith Cells 0-4 H (0-5) Urine Bacteria Trace (NONE) Discharge Plan Discharge Patient Disposition: Home, Self-Care Clinical Impression: Mass of pancreas Nausea & vomiting Qualifiers: Vomiting type: unspecified Vomiting Intractability: unspecified Qualified Code(s): R11.2 - Nausea with vomiting, unspecified Condition: Stable Prescriptions: New promethazine 25 mg tablet 25 mg PO Q6H PRN (Reason: nausea and vomiting) Qty: 14 RF: 0 No Action cetirizine 10 mg Tablet 10 mg PO DAILY RF: 0 omeprazole 40 mg Capsule,Delayed Release(Dr/Ec) 40 mg PO DAILY RF: 0 levothyroxine 88 mcg Tablet 88 mcg PO DAILY RF: 0 trazodone 150 mg Tablet 150 mg PO BEDTIME PRN (Reason: Sleep) RF: 0 fluticasone propionate [Flonase Allergy Relief] 50 mcg/actuation [place],Suspension 1 spray INTRANASAL BID PRN (Reason: UNKNOWN) RF: 0 duloxetine [Cymbalta] 30 mg Capsule,Delayed Release(Dr/Ec) 30 mg PO DAILY RF: 0 darifenacin [Enablex] 7.5 mg Tablet Extended Release 24 Hr 7.5 mg PO DAILY RF: 0 Miralax 17 gram Powder In Packet 17 g PO DAILY PRN (Reason: Constipation) RF: 0 amlodipine 5 mg Tablet 5 mg PO DAILY RF: 0 hydrocodone-acetaminophen 5-325 mg tablet 1 tab PO Q6H PRN (Reason: pain) Qty: 20 RF: 0 Discharge Orders: Discharge Order (Routine); Ordered 10/05/19 Ordered By: Rodrigo Arteaga Referrals: Fiona Henriquez UNIFIED COMMUNICATIONS ARCHITECT [Family Provider] - Discharge Diet: As Directed Discharge Activity: Increase activity as tolerated Patient Instructions: Promethazine (By mouth), Acute Nausea and Vomiting (ED) Activity Restrictions/Additional Instructions: Trial of promethazine for better control of nausea Clear liquids until nausea and vomiting is controlled Increase diet slowly to a bland diet over the next 2 days Follow-up with primary care in three days Return to ER for high fever or uncontrolled pain Coding Level of Care Code ED It Service Continuity Supervisor for Ezra Molina Exam Problem Focused
[2019-10-05 15:31] LABS: Basophils # 0.1 10^3/uL (0.0-0.1); Basophils % 0.7 %; Eosinophils % 0.4 %; Hematocrit 41.6 % (37.0-47.0); Hemoglobin 14.3 g/dL (11.5-15.3); Lymphocytes # 1.5 10^3/uL (0.8-4.8); Mean Corpuscular HGB Conc 34.4 g/dL (30.0-36.0); Mean Corpuscular Hemoglobin 28.6 pg (28.0-34.0); Mean Corpuscular Volume 83.2 fL (81-99); Mean Platelet Volume 8.9 fL (7.4-10.4); Monocytes # 0.7 10^3/uL (0.2-0.9); Monocytes % 6.5 %; Neutrophils # 7.8 10^3/uL (1.8-7.7); Nucleated Red Blood Cells % 0 %; Platelet Count 347 10^3/cmm (130-400); Red Cell Distribution Width 12.1 % (12.1-15.1); White Blood Count 10.1 10^3/uL (4.0-10.0)
--- NOTE | 2019-10-05 15:42 | CTR_ITS ---
PROCEDURE INFORMATION: Exam: CT Abdomen And Pelvis With Contrast Exam date and time: 10/05/2019 4:06 PM Age: 74 years old Clinical indication: Abdominal pain; Prior surgery; Additional info: N/v epigastric abd pain TECHNIQUE: Imaging protocol: Computed tomography of the abdomen and pelvis with intravenous contrast. Total DLP: 723.44 mGy-cm Radiation optimization: All CT scans at this facility use at least one of these dose optimization techniques: automated exposure control; mA and/or kV adjustment per patient size (includes targeted exams where dose is matched to clinical indication); or iterative reconstruction. Contrast material: OMNI 300; Contrast volume: 95 ml; Contrast route: IV; COMPARISON: CT abdomen pelvis w con* [id number] 09/25/2019 3:59 AM FINDINGS: Lungs: The basilar pulmonary nodules measuring up to 6 mm in size are unchanged. Mediastinum: A small hiatal hernia is present. Liver: No discrete liver nodule. Gallbladder and bile ducts: There is pneumobilia. A biliary stent is now present. Postoperative changes of a cholecystectomy are noted. Pancreas: The atrophic pancreas with dilated pancreatic duct is unchanged measuring up to 9 mm. The soft tissue edema density in the pancreatic head with ill-defined borders and haziness of the peripancreatic fat concerning for pancreatic neoplasm is unchanged. This measures approximately 2.4 by 2.1 cm image 32. Spleen: Normal. No splenomegaly. Adrenals: Normal. No mass. Kidneys and ureters: There is no evidence of hydronephrosis. There is no evidence of renal calcifications. Unchanged 6 mm probable cyst midpole left kidney. Stomach and bowel: Moderate diverticulosis is present in the distal colon. No ileus or obstruction. No bowel thickening or inflammatory changes. There is abundant colonic stool. No impaction. The stomach is unremarkable. The wall of the 2nd and 3rd portions of the duodenum appears slightly thickened but unchanged in appearance. Some of this is probable collapse however subtle infiltration or reactive edema from the adjacent pancreatic neoplasm may be present but this has a similar appearance. Appendix: No evidence of appendicitis. Intraperitoneal space: Unremarkable. No free air. No significant fluid collection. Vasculature: The aorta demonstrates moderate atherosclerotic calcification. Lymph nodes: There is no enlarging or new mass. Unchanged subcentimeter lymph nodes adjacent to the pancreas. Bladder: There is nonspecific bladder wall thickening. This may be related to incomplete distention. Reproductive: Unremarkable as visualized. Patient is status post hysterectomy. Bones/joints: Scoliosis, old rib fractures and moderate degenerative changes in the spine are noted. Chronic fracture deformity of T8, T9 and T10 are noted. Soft tissues: Unremarkable. CT/CT abdomen pelvis w con* [id number] IMPRESSION: 1. Unchanged basilar pulmonary nodules. The largest measures about 6.5 mm. This is concerning for metastatic disease. For patients at low risk (minimal or absent history of smoking and of other known risk factors), recommend CT at 3-6 months, then consider CT at 18-24 months. For patients at high risk (history of smoking or of other known risk factors), recommend CT at 3-6 months, then CT at 18-24 months. (Vera et al., Fleischner Society, 2017) 2. Unchanged probable mass in the head of the pancreas with unchanged dilatation of the pancreatic duct. The biliary stent is present with pneumobilia. Unchanged mild wall thickening of the duodenum may reflect lack of distension or reactive changes to the adjacent pancreatic mass. 3. No acute inflammatory changes or fluid collection. Radiation Dose CTDIVOL = (mGy): DLP = 723.44 (mGy-cm)
[2019-10-05 15:51] LABS: Alanine Aminotransferase 15 U/L (0-33); Albumin Level 4.9 g/dL (3.5-5.2); Alkaline Phosphatase 139 IU/L (35-105); Anion Gap 21.4 (5-19); Aspartate Amino Transferase 16 U/L (0-32); Blood Urea Nitrogen 11 mg/dL (8-23); Calcium 10.6 mg/dL (8.5-10.5); Carbon Dioxide 16 mmol/L (22-29); Chloride 100 mmol/L (98-107); Globulin 2.5 g/dL (1.3-4.6); Glucose 142 mg/dL (74-106); Lipase 20 U/L (13-60); Potassium 3.4 mmol/L (3.5-5.1); Sodium 134 mmol/L (136-145); Total Bilirubin 1.1 mg/dL (0.15-1.2); Total Protein 7.4 g/dL (6.6-8.7)
[2019-10-05] MEDS: ondansetron 2 mg/ML SDV 2 mL 4 MG IVP (16:18)
[2019-10-05] MEDS: sodium chloride 0.9% 1,000 ML 999 ML IV (16:43)
--- NOTE | 2019-10-05 16:58 | PC.NURSE ---
Pt to CT
[2019-10-05] MEDS: iohexol 300 mg/mL 100 mL Btl IV (17:07)
[2019-10-05 17:13] VITALS: RESP 18; O2SAT 100
[2019-10-05] MEDS: morphine 4 mg/mL SDV 1 mL IVP (17:13)
[2019-10-05 17:24] VITALS: BP 141/89; PULSE 80; RESP 18; O2SAT 100
[2019-10-05 17:42] LABS: Bilirubin Urine Neg (NEGATIVE); Blood Urine Neg (Negative); Glucose Urine UA Norm (Normal); Ketones Urine 1+ (Negative); Leukocyte Esterase Urine Negative (Negative); Nitrate Urine Negative (Negative); Protein Urine Neg (Negative); Specific Gravity, Urine 1.015 (1.005-1.030); Sulfosalicylic Acid Urine Negative; Urine Appearance Clear (CLEAR); Urine Color Straw (Yellow); Urobilinogen Urine Norm (Negative); pH Urine 9 (5-7)
[2019-10-05 17:43] LABS: Add Urine Culture? No; Bacteria Urine TRACE; Squamous Epithelial Cell Urine 0-4 (0-5); WBC Urine RARE /hpf (0-5)
[2019-10-05 17:46] VITALS: BP 141/89; PULSE 62; RESP 16; O2SAT 99
[2019-10-05 17:54] VITALS: BP 141/89; PULSE 65; RESP 16; O2SAT 98
--- NOTE | 2019-10-05 18:20 | PC.NURSE ---
[facility] CALLED FOR A RIDE AND CONFIRMATION NUMBER IS [id number]
== END 2019-10-05 18:22 | disposition home or self-care (01) ==
PROVIDERS: Emergency Provider Nurse Practitioner Family; Family Provider Nurse Practitioner Primary Care
DX: K86.9 Disease of pancreas, unspecified (principal)
CPT/HCPCS: 36415; 74177; 80053; 81001; 83690; 85025; 96360; 96374; 99282; A9270; J2270; J2405; J7030; Q9967

== ENCOUNTER 2019-10-05 20:04 | Emergency (ER) | payer MEDICAID, SELFPAY ==
[2019-10-05 20:24] VITALS: BP 121/76; PULSE 79; RESP 18; TEMP 37.2; O2SAT 98; BMI 26.6
[2019-10-05 20:27] LABS: Basophils # 0.1 10^3/uL (0.0-0.1); Basophils % 0.7 %; Eosinophils # 0.1 10^3/uL (0.0-0.8); Eosinophils % 0.6 %; Hematocrit 38.9 % (37.0-47.0); Hemoglobin 13.9 g/dL (11.5-15.3); Lymphocytes # 2.8 10^3/uL (0.8-4.8); Lymphocytes % 25.3 %; Mean Corpuscular HGB Conc 35.7 g/dL (30.0-36.0); Mean Corpuscular Hemoglobin 28.4 pg (28.0-34.0); Mean Corpuscular Volume 79.6 fL (81-99); Mean Platelet Volume 8.7 fL (7.4-10.4); Monocytes # 0.8 10^3/uL (0.2-0.9); Monocytes % 6.9 %; Neutrophils # 7.3 10^3/uL (1.8-7.7); Neutrophils % 66.1 %; Nucleated Red Blood Cells % 0 %; Platelet Count 389 10^3/cmm (130-400); Red Blood Count 4.89 10^6/uL (4.1-5.3); Red Cell Distribution Width 12.1 % (12.1-15.1); White Blood Count 11.1 10^3/uL (4.0-10.0)
--- NOTE | 2019-10-05 20:35 | ED_ITS ---
Entered by Makenzie Tavarez, acting as scribe for Narendra Yung MD HPI - Abdominal Pain General: Chief Complaint: Abdominal Pain Stated Complaint: ABD PAIN Time Seen by Provider: 10/05/19 20:35 Source: patient Mode of arrival: ambulatory Limitations: no limitations History of Present Illness: HPI narrative: 74 yo female presents to ED with complaints of abdominal pain. The patient was here on 09.25.2019 and has been here daily since 10.03.2019 with the same complaint and was diagnosed with a pancreatic mass on 09.25.2019. The patient states she was not able to get a ride home earlier and she began to hurt again while sitting in the waiting area, so she checked back in to be seen. MD elicited complaint: abdominal pain Pertinent past history: other (pancreatic mass) Onset (ago): day(s) (10) Pain Consistency: constant Location: Diffuse Severity: moderate Quality: cramping and aching Radiation: none Migration to: no migration Exacerbating factors: eating and movement Relieving factors: medication Associated Symptoms: Reports GI cramping; Denies chills and fever(s) Treatments prior to arrival: prescription analgesics Review of Systems Const: Denies: fever or chills Eyes: Denies: change in vision ENMT: Denies: throat pain or mouth pain Card: Denies: chest pain Resp: Denies: shortness of breath GI: Reports: cramping : Denies: difficulty urinating Musc: Denies: back pain or joint pain Skin/Breast: Denies: rash Neuro: Denies: headache Psych: Denies: depression Endo: Denies: excessive urination Ari[place]/Lymph: Denies: easy bruising All/Imm: Denies: hives PFSH ED PFSH: Statuses (acute, chronic, etc) shown below reflect problem list status as previously entered and may not be historically accurate Social History Smoking and tobacco status: never smoked Physical Exam Const: COMMON NORMALS: no apparent distress and healthy appearing HENMT: COMMON NORMALS: normocephalic and external nose normal HEAD & SCALP: normocephalic NOSE: external nose normal and no nasal discharge (nasal dischage) Eye: COMMON NORMALS: PERRL PUPIL: Yes PERRL Neck/C-Spine: COMMON NORMALS: full ROM and no lymphadenopathy Chest: COMMONS NORMALS: inspection of chest normal Resp: COMMON NORMALS: normal respiratory effort and clear to auscultation bilaterally AUSCULTATION: clear to auscultation bilaterally Cardio: COMMON NORMALS: regular rate and regular rhythm RATE: regular rate RHYTHM: regular rhythm GI: COMMON NORMALS: soft to palpation PALPATION: Yes soft Extremity: COMMON NORMALS: normal to inspection, full ROM and normal capillary refill Psych: COMMON NORMALS: mental status grossly normal and cooperative Skin: COMMON NORMALS: no rashes or lesions noted GENERAL SKIN EXAM: no rashes or lesions noted Course Vital Signs: Vital signs: Vital Signs Temperature 99.0 F 10/05/19 20:24 Pulse Rate 79 10/05/19 20:24 Respiratory Rate 18 10/05/19 20:24 Blood Pressure 121/76 10/05/19 20:24 Pulse Oximetry 98 10/05/19 20:24 MDM - Abdominal Pain MDM Narrative: Medical decision making narrative: Patient presents here with abdominal pain that is chronic in nature. Patient was sitting in the waiting room waiting for logistic care states her pain started to come back. She states pain is now 4-10. She denies any worsening or improving factors from earlier. She has a known pancreatic mass. Patient is stable for discharge and is return if worsening. Lab Data: Labs: Lab Results 10/05/19 10/05/19 Range/Units 20:22 20:22 WBC 11.1 H (4.0-10.0) 10^3/ uL RBC 4.89 (4.1-5.3) 10^6/u L Hgb 13.9 (11.5-15.3) g/dL Hct 38.9 (37.0-47.0) % MCV 79.6 L (81-99) fL MCH 28.4 (28.0-34.0) pg MCHC 35.7 (30.0-36.0) g/dL RDW 12.1 (12.1-15.1) % Plt Count 389 (130-400) 10^3/c mm MPV 8.7 (7.4-10.4) fL Neut % (Auto) 66.1 % Lymph % (Auto) 25.3 % [place] % (Auto) 6.9 % Eos % (Auto) 0.6 % Baso % (Auto) 0.7 % Neut # (Auto) 7.3 (1.8-7.7) 10^3/u L Lymph # (Auto) 2.8 (0.8-4.8) 10^3/u L [place] # (Auto) 0.8 (0.2-0.9) 10^3/u L Eos # (Auto) 0.1 (0.0-0.8) 10^3/u L Baso # (Auto) 0.1 (0.0-0.1) 10^3/u L Nucleated RBC % (a uto) 0 % Nucleated RBCs # 0.0 /100WBC Sodium 132 L (136-145) mmol/L Potassium 3.3 L (3.5-5.1) mmol/L Chloride 98 (98-107) mmol/L Carbon Dioxide 16 L (22-29) mmol/L Anion Gap 21.3 H (5-19) BUN 11 (8-23) mg/dL Creatinine 0.8 (0.5-0.9) mg/dL Glucose 139 H (74-106) mg/dL Calcium 10.8 H (8.5-10.5) mg/dL Total Bilirubin 1.1 (0.15-1.2) mg/dL AST 15 (0-32) U/L ALT 15 (0-33) U/L Alkaline Phosphata se 145 H (35-105) IU/L Total Protein 7.8 (6.6-8.7) g/dL Albumin 4.7 (3.5-5.2) g/dL Globulin 3.1 (1.3-4.6) g/dL Lipase 16 (13-60) U/L Discharge Plan Discharge Patient Disposition: Home, Self-Care Clinical Impression: Abdominal pain Qualifiers: Abdominal location: generalized Qualified Code(s): R10.84 - Generalized abdominal pain Condition: Stable Prescriptions: No Action cetirizine 10 mg Tablet 10 mg PO DAILY RF: 0 omeprazole 40 mg Capsule,Delayed Release(Dr/Ec) 40 mg PO DAILY RF: 0 levothyroxine 88 mcg Tablet 88 mcg PO DAILY RF: 0 trazodone 150 mg Tablet 150 mg PO BEDTIME PRN (Reason: Sleep) RF: 0 fluticasone propionate [Flonase Allergy Relief] 50 mcg/actuation [place],Suspension 1 spray INTRANASAL BID PRN (Reason: UNKNOWN) RF: 0 duloxetine [Cymbalta] 30 mg Capsule,Delayed Release(Dr/Ec) 30 mg PO DAILY RF: 0 darifenacin [Enablex] 7.5 mg Tablet Extended Release 24 Hr 7.5 mg PO DAILY RF: 0 promethazine 25 mg tablet 25 mg PO Q6H PRN (Reason: nausea and vomiting) Qty: 14 RF: 0 Miralax 17 gram Powder In Packet 17 g PO DAILY PRN (Reason: Constipation) RF: 0 amlodipine 5 mg Tablet 5 mg PO DAILY RF: 0 hydrocodone-acetaminophen 5-325 mg tablet 1 tab PO Q6H PRN (Reason: pain) Qty: 20 RF: 0 Discharge Orders: Discharge Order (Routine); Ordered 10/05/19 Ordered By: Narendra Yung Referrals: Fiona Henriquez, MECHANIC [employer] SERVICE [Family Provider] - 4-7 days Discharge Diet: Advance as tolerated Discharge Activity: Resume usual activity Patient Instructions: Abdominal Pain (ED) Coding Level of Care Code ED Business Control Specialist for Chg Fwd Exam Problem Focused The documentation recorded by the Corby mesa Valerie R, accurately reflects the service I personally performed and the decisions made by Aga guan Korby, MD Oct 05, 2019 20:04
[2019-10-05 20:45] LABS: Alanine Aminotransferase 15 U/L (0-33); Albumin Level 4.7 g/dL (3.5-5.2); Alkaline Phosphatase 145 IU/L (35-105); Anion Gap 21.3 (5-19); Aspartate Amino Transferase 15 U/L (0-32); Blood Urea Nitrogen 11 mg/dL (8-23); Calcium 10.8 mg/dL (8.5-10.5); Carbon Dioxide 16 mmol/L (22-29); Chloride 98 mmol/L (98-107); Globulin 3.1 g/dL (1.3-4.6); Glucose 139 mg/dL (74-106); Lipase 16 U/L (13-60); Potassium 3.3 mmol/L (3.5-5.1); Sodium 132 mmol/L (136-145); Total Bilirubin 1.1 mg/dL (0.15-1.2); Total Protein 7.8 g/dL (6.6-8.7)
[2019-10-05] MEDS: metoclopramide 5 mg/mL SDV 2 mL 10 MG IVP (20:59)
[2019-10-05] MEDS: diphenhydrAMINE 50 mg/mL SDV 1mL IVP (20:59)
--- NOTE | 2019-10-05 21:23 | PC.NURSE ---
Nurse entered room, noting patient laying in bed, discharge instructions were discussed to patient. Patient voiced that she was needing to wait in the room until morning. RN explained that she would need to wait in the waiting room due to potential of patient influx and need . Patient stated Well, they called logistic care for me and they still havent arrived . RN explained that logistic care will review her ride and get her when they were able. Patient then stated well, I'll just keep checking in until they come and pick me up . RN encouraged patient to have family see if they could come get her and take her home. RN notified provider.
--- NOTE | 2019-10-26 06:56 | PC.NURSE ---
Late Entry: During documentation review noted that error was found in medication administration. Medication was ordered IVP, with no saline lock order. Medications were both given IM, provider notified and agreed with route change.
== END 2019-10-05 21:31 | disposition home or self-care (01) ==
PROVIDERS: Emergency Provider Emergency Medicine; Family Provider Nurse Practitioner Primary Care
DX: R10.84 Generalized abdominal pain (principal)
CPT/HCPCS: 80053; 83690; 85025; 96372; 96374; 99281; J1200; J2765

== ENCOUNTER 2019-11-09 15:02 | Emergency (ER) | payer MEDICAID, SELFPAY ==
[2019-11-09] VITALS (7 sets, daily range): BP systolic 110–126; BP diastolic 66–101; PULSE 57–65; RESP 16–20; TEMP 36.5; O2SAT 80–100; BMI 26.5
--- NOTE | 2019-11-09 15:08 | ED_ITS ---
Entered by Renita Bryan, acting as scribe for HPI - Abdominal Pain General: Chief Complaint: Abdominal Pain Stated Complaint: ABD PAIN Time Seen by Provider: 11/09/19 15:07 Source: patient Mode of arrival: EMS Limitations: no limitations History of Present Illness: HPI narrative: 74 yo Female presents to ED with complaint of abdominal pain. Pt states that she had a stent placed by her pancreas in September. Pt states that they found cancer in her pancreas. Pt states that she is trying to be seen by Dr. Srinivasan in [place] but she has missed 2 appointments because she couldn't get there. Pt states that she doesn't take anything at home for pain. Pt states that she was given Dilaudid in her IV last time and that helped a lot. MD elicited complaint: abdominal pain Onset (ago): day(s) Pain Consistency: constant Location: Diffuse Pain scale (0-10): 10 Quality: sharp Exacerbating factors: nothing Relieving factors: nothing Context: recent surgery/procedure Associated Symptoms: Reports nausea; Denies constipation, diarrhea, dysuria and fever(s) Review of Systems Const: Denies: fever Eyes: Denies: blurry vision or eye discomfort ENMT: Denies: throat pain or dental pain Card: Denies: chest pain Resp: Denies: shortness of breath GI: Reports: abdominal pain and nausea; Denies: diarrhea or constipation : Denies: painful urination Musc: Denies: neck pain or back pain Skin/Breast: Denies: rash Neuro: Reports: dizziness; Denies: headache Psych: Denies: depression Ariel/Lymph: Denies: easy bruising All/Imm: Denies: hives [facility] ED PFSH: Social History Smoking and tobacco status: never smoked Physical Exam Const: COMMON NORMALS: no apparent distress, oriented x3 and healthy appearing HENMT: COMMON NORMALS: normocephalic and head/scalp atraumatic HEAD & SCALP: normocephalic and atraumatic Eye: COMMON NORMALS: PERRL and EOMs intact bilaterally PUPIL: Yes PERRL Neck/C-Spine: COMMON NORMALS: full ROM and supple Chest: COMMONS NORMALS: inspection of chest normal and palpation of chest normal Resp: COMMON NORMALS: normal respiratory effort, no retractions, no use of accessory muscles and clear to auscultation bilaterally AUSCULTATION: clear to auscultation bilaterally Cardio: COMMON NORMALS: regular rate, regular rhythm and no murmurs RATE: regular rate RHYTHM: regular rhythm GI: COMMON NORMALS: normal to inspection, nondistended, normoactive bowel sounds, soft to palpation, non-tender and no masses PALPATION: Yes soft Extremity: COMMON NORMALS: normal to inspection and full ROM Neuro: COMMON NORMALS: oriented x3, moves all extremities and no focal motor deficits Psych: COMMON NORMALS: mental status grossly normal, thought process normal and cooperative THOUGHT PROCESS: normal thought process Skin: COMMON NORMALS: no rashes or lesions noted and no wounds GENERAL SKIN EXAM: no rashes or lesions noted Course Vital Signs: Vital signs: Vital Signs Temperature 97.7 F 11/09/19 15:07 Pulse Rate 62 11/09/19 16:52 Respiratory Rate 16 11/09/19 16:52 Blood Pressure 110/66 11/09/19 16:52 Pulse Oximetry 98 11/09/19 16:52 MDM - Abdominal Pain MDM Narrative: Medical decision making narrative: Amada presents with abdominal pain is chronic in nature likely from her pancreatic mass. She is not followed up yet informed that is very important that she does follow-up. Her lab work here is normal and exam is benign. Her pain is much improved at discharge and she is stable for discharge. She is to follow-up with her primary care doctor in 3 to 5 days return if worsening. Lab Data: Labs: Lab Results 11/09/19 11/09/19 Range/Units 15:45 15:45 WBC 7.1 (4.0-10.0) 10^3/ uL RBC 4.71 (4.1-5.3) 10^6/u L Hgb 13.5 (11.5-15.3) g/dL Hct 39.7 (37.0-47.0) % MCV 84.3 (81-99) fL MCH 28.7 (28.0-34.0) pg MCHC 34.0 (30.0-36.0) g/dL RDW 12.1 (12.1-15.1) % Plt Count 266 (130-400) 10^3/c mm MPV 9.5 (7.4-10.4) fL Neut % (Auto) 78.9 % Lymph % (Auto) 14.4 % Crisp % (Auto) 4.5 % Eos % (Auto) 1.1 % Baso % (Auto) 0.8 % Neut # (Auto) 5.6 (1.8-7.7) 10^3/u L Lymph # (Auto) 1.0 (0.8-4.8) 10^3/u L Crisp # (Auto) 0.3 (0.2-0.9) 10^3/u L Eos # (Auto) 0.1 (0.0-0.8) 10^3/u L Baso # (Auto) 0.1 (0.0-0.1) 10^3/u L Nucleated RBC % (a uto) 0 % Nucleated RBCs # 0.0 /100WBC Sodium 138 (136-145) mmol/L Potassium 3.4 L (3.5-5.1) mmol/L Chloride 103 (98-107) mmol/L Carbon Dioxide 18 L (22-29) mmol/L Anion Gap 20.4 H (5-19) BUN 15 (8-23) mg/dL Creatinine 0.6 (0.5-0.9) mg/dL Glucose 157 H (65-115) mg/dL Calcium 10.8 H (8.5-10.5) mg/dL Total Bilirubin 0.8 (0.15-1.2) mg/dL AST 18 (0-32) U/L ALT 15 (0-33) U/L Alkaline Phosphata se 195 H (35-105) IU/L Total Protein 8.0 (6.6-8.7) g/dL Albumin 4.9 (3.5-5.2) g/dL Globulin 3.1 (1.3-4.6) g/dL Lipase 22 (13-60) U/L Discharge Plan Discharge Patient Disposition: Home, Self-Care Clinical Impression: Abdominal pain Qualifiers: Abdominal location: generalized Qualified Code(s): R10.84 - Generalized abdominal pain Condition: Stable Prescriptions: No Action cetirizine 10 mg Tablet 10 mg PO DAILY RF: 0 omeprazole 40 mg Capsule,Delayed Release(Dr/Ec) 40 mg PO DAILY RF: 0 levothyroxine 88 mcg Tablet 88 mcg PO DAILY RF: 0 trazodone 150 mg Tablet 150 mg PO BEDTIME PRN (Reason: Sleep) RF: 0 darifenacin [Enablex] 7.5 mg Tablet Extended Release 24 Hr 7.5 mg PO DAILY RF: 0 promethazine 25 mg tablet 25 mg PO Q6H PRN (Reason: nausea and vomiting) Qty: 14 RF: 0 tramadol 50 mg Tablet 50 mg PO DAILY RF: 0 Discharge Orders: Discharge Order (Routine); Ordered 11/09/19 Ordered By: Narendra Yung Referrals: Fiona Henriquez, SAFETY INSPECTOR [Family Provider] - Discharge Diet: Advance as tolerated Discharge Activity: Resume usual activity Patient Instructions: Abdominal Pain (ED) Discharge Date/Time: 11/09/19 16:55 Coding Level of Care Code ED Squirrel Man for Chg Fwd Exam Comprehensive The documentation recorded by the Irvin mesa Carmen, accurately reflects the service I personally performed and the decisions made by Aga guan Korby, MD Nov 09, 2019 15:02
[2019-11-09] MEDS: HYDROmorphone 1 mg/mL INJ 1 mL IVP (15:49)
[2019-11-09] MEDS: ondansetron 2 mg/ML SDV 2 mL 4 MG IVP (15:49)
[2019-11-09] MEDS: sodium chloride 0.9% 1,000 ML 999 ML IV (15:51)
[2019-11-09 15:56] LABS: Basophils # 0.1 10^3/uL (0.0-0.1); Basophils % 0.8 %; Eosinophils # 0.1 10^3/uL (0.0-0.8); Eosinophils % 1.1 %; Hematocrit 39.7 % (37.0-47.0); Hemoglobin 13.5 g/dL (11.5-15.3); Lymphocytes % 14.4 %; Mean Corpuscular Hemoglobin 28.7 pg (28.0-34.0); Mean Corpuscular Volume 84.3 fL (81-99); Mean Platelet Volume 9.5 fL (7.4-10.4); Monocytes # 0.3 10^3/uL (0.2-0.9); Monocytes % 4.5 %; Neutrophils # 5.6 10^3/uL (1.8-7.7); Neutrophils % 78.9 %; Nucleated Red Blood Cells % 0 %; Platelet Count 266 10^3/cmm (130-400); Red Blood Count 4.71 10^6/uL (4.1-5.3); Red Cell Distribution Width 12.1 % (12.1-15.1); White Blood Count 7.1 10^3/uL (4.0-10.0)
[2019-11-09 16:11] LABS: Alanine Aminotransferase 15 U/L (0-33); Albumin Level 4.9 g/dL (3.5-5.2); Alkaline Phosphatase 195 IU/L (35-105); Anion Gap 20.4 (5-19); Aspartate Amino Transferase 18 U/L (0-32); Blood Urea Nitrogen 15 mg/dL (8-23); Calcium 10.8 mg/dL (8.5-10.5); Carbon Dioxide 18 mmol/L (22-29); Chloride 103 mmol/L (98-107); Creatinine Clr Calc Pharmacy 57.1281; Globulin 3.1 g/dL (1.3-4.6); Glucose 157 mg/dL (65-115); Lipase 22 U/L (13-60); Potassium 3.4 mmol/L (3.5-5.1); Sodium 138 mmol/L (136-145); Total Bilirubin 0.8 mg/dL (0.15-1.2)
[2019-11-09] MEDS: HYDROmorphone 1 mg/mL INJ 1 mL 0.5 MG IVP (16:26)
== END 2019-11-09 16:55 | disposition home or self-care (01) ==
PROVIDERS: Emergency Provider Emergency Medicine; Family Provider Nurse Practitioner Primary Care
DX: R10.9 Unspecified abdominal pain (principal)
CPT/HCPCS: 36415; 80053; 83690; 85025; 96361; 96374; 96375; 96376; 99282; 99284; J1170; J2405; J7030

== ENCOUNTER 2019-11-10 16:30 | Emergency (ER) | payer MEDICAID, SELFPAY | END 2019-11-10 20:55 | disposition admitted as inpatient to this hospital (09) | LOC: ER 12-11 10:52 | PROVIDERS: Emergency Provider Family Medicine; Family Provider Nurse Practitioner Primary Care | DX: K86.89 Other specified diseases of pancreas (principal); E03.9 Hypothyroidism, unspecified; R10.31 Right lower quadrant pain; Z98.890 Other specified postprocedural states ==

== ENCOUNTER 2019-11-10 16:30 | Observation (INO) | payer MEDICAID, SELFPAY ==
[2019-11-10] VITALS (9 sets, daily range): BP systolic 116–198; BP diastolic 71–100; PULSE 58–65; RESP 16–18; TEMP 36.9–37.5; O2SAT 93–99; BMI 26.5
--- NOTE | 2019-11-10 16:33 | ED_ITS ---
Entered by Tavia Wong, acting as scribe for Gutierrez Gusman DO HPI - Abdominal Pain General: Chief Complaint: Nausea/Vomiting/Diarrhea Stated Complaint: N/V/D ABDOMINAL PAIN Time Seen by Provider: 11/10/19 16:33 Source: patient and EMS Mode of arrival: EMS Limitations: no limitations History of Present Illness: HPI narrative: 74 yo female presents with lower abdomen pain. pt states this started a few days ago but worsened yesterday. pt states she has had nausea, and vomiting. pt states she was seen in the ED for pain yesterday. pt has a hx of a mass in her pancreas that she has a appointment next week for. pt denies any other symptoms at this time. MD elicited complaint: abdominal pain Pertinent past history: other (mass in pancreas) Onset (ago): day(s) (today) Pain Consistency: constant Location: RLQ and LLQ Quality: stabbing Migration to: suprapubic Exacerbating factors: movement Relieving factors: nothing Context: other (pt seen yesterday for the same symptoms) Associated Symptoms: Reports nausea and vomiting; Denies chills, dysuria and fever(s) Review of Systems General: Reports: 10 or more systems reviewed and unremarkable except in HPI and below Const: Denies: fever, chills, body aches, change in appetite, fatigue or malaise ENMT: Denies: throat pain, ear pain, nasal discharge or nasal congestion Card: Denies: chest pain, edema, shortness of breath on exertion or shortness of breath when lying down Resp: Reports: shortness of breath GI: Reports: abdominal pain, nausea and vomiting : Denies: flank pain, difficulty urinating, painful urination, urinary frequency or urinary urgency Musc: Denies: joint warmth Skin/Breast: Denies: rash or itching PFSH ED PFSH: Medical History (Updated 11/14/19 @ 11:35 by Gutierrez Gusman DO) Hypothyroidism Surgical History (Updated 11/14/19 @ 11:35 by Gutierrez Gusman DO) History of biliary duct stent placement Family History (Updated 11/11/19 @ 16:03 by Pasquale Araujo MD) Other CAD (coronary artery disease) Social History (Updated 11/11/19 @ 16:03 by Pasquale Araujo MD) Smoking and tobacco status: never smoked Alcohol intake: never Substance/Drug Use: never Physical Exam Const: COMMON NORMALS: no apparent distress GENERAL APPEARANCE: cooperative and comfortable ORIENTATION/CONSCIOUSNESS: Yes awake, Yes oriented to person, Yes oriented to place and Yes oriented to time HENMT: COMMON NORMALS: normocephalic, head/scalp atraumatic, hearing grossly normal bilaterally, external ears normal, EAC's normal, TM's normal bilaterally, nasal mucous membranes and turbinates normal, moist oral mucous membranes and oropharynx normal HEAD & SCALP: normocephalic and atraumatic NOSE: nasal mucous membranes and turbinates normal EXTERNAL EAR: Yes external ears normal EXTERNAL AUDITORY CANAL: EAC's normal TYMPANIC MEMBRANE: TM's normal bilaterally Eye: COMMON NORMALS: PERRL, EOMs intact bilaterally, conjunctivae normal and no scleral icterus CONJUNCTIVA: Yes conjunctivae normal PUPIL: Yes PERRL Neck/C-Spine: COMMON NORMALS: full ROM, no lymphadenopathy, supple and no JVD Lymph: LYMPHATIC: no lymphadenopathy noted and no lymphedema noted Resp: COMMON NORMALS: normal respiratory effort, no retractions, no use of accessory muscles and clear to auscultation bilaterally AUSCULTATION: clear to auscultation bilaterally Cardio: COMMON NORMALS: no JVD, regular rate, regular rhythm and no murmurs RATE: regular rate RHYTHM: regular rhythm GI: COMMON NORMALS: negative for no hepatosplenomegaly PALPATION: Yes tender (Epigastric and right upper quadrant), No guarding, No rigid and No no hepatosplenomegaly Extremity: COMMON NORMALS: normal to inspection, normal capillary refill, no clubbing, cyanosis or edema, no calf tenderness and no pedal edema Neuro: SENSORIUM/ORIENTATION: Yes oriented to person, Yes oriented to place and Yes oriented to time Skin: COMMON NORMALS: no rashes or lesions noted GENERAL SKIN EXAM: no rashes or lesions noted Course ED course: Patient has severe pain was uncontrollable nausea and vomiting. We will go ahead and admit for antiemetics IV fluids for pain control. Vital Signs: Vital signs: Vital Signs Temperature 99.0 F 11/12/19 13:50 Pulse Rate 57 L 11/12/19 13:50 Respiratory Rate 18 11/12/19 13:50 Blood Pressure 124/72 03/01/20 13:50 Pulse Oximetry 97 11/12/19 13:50 MDM - Abdominal Pain Lab Data: Labs: Lab Results 11/10/19 11/10/19 11/10/19 Range/Units 16:39 16:47 16:47 WBC 7.1 (4.0-10.0) 10^3/ uL RBC 4.78 (4.1-5.3) 10^6/u L Hgb 13.7 (11.5-15.3) g/dL Hct 40.4 (37.0-47.0) % MCV 84.5 (81-99) fL MCH 28.7 (28.0-34.0) pg MCHC 33.9 (30.0-36.0) g/dL RDW 12.2 (12.1-15.1) % Plt Count 287 (130-400) 10^3/c mm MPV 9.3 (7.4-10.4) fL Neut % (Auto) 68.9 % Lymph % (Auto) 22.3 % Loving % (Auto) 6.8 % Eos % (Auto) 0.8 % Baso % (Auto) 0.8 % Neut # (Auto) 4.9 (1.8-7.7) 10^3/u L Lymph # (Auto) 1.6 (0.8-4.8) 10^3/u L Loving # (Auto) 0.5 (0.2-0.9) 10^3/u L Eos # (Auto) 0.1 (0.0-0.8) 10^3/u L Baso # (Auto) 0.1 (0.0-0.1) 10^3/u L Nucleated RBC % (a uto) 0 % Nucleated RBCs # 0.0 /100WBC Sodium 137 (136-145) mmol/L Potassium 3.2 L (3.5-5.1) mmol/L Chloride 100 (98-107) mmol/L Carbon Dioxide 21 L (22-29) mmol/L Anion Gap 19.2 H (5-19) BUN 13 (8-23) mg/dL Creatinine 0.7 (0.5-0.9) mg/dL Glucose 133 H (65-115) mg/dL Calcium 10.6 H (8.5-10.5) mg/dL Total Bilirubin 0.7 (0.15-1.2) mg/dL AST 17 (0-32) U/L ALT 15 (0-33) U/L Alkaline Phosphata se 186 H (35-105) IU/L Total Protein 8.0 (6.6-8.7) g/dL Albumin 4.9 (3.5-5.2) g/dL Globulin 3.1 (1.3-4.6) g/dL Lipase 18 (13-60) U/L Urine Color Yellow (Yellow) Urine Appearance Clear (CLEAR) Urine pH 6 (5-7) Ur Specific Gravit y 1.020 (1.005-1.030) Urine Protein Neg (Negative) Urine Glucose (UA) Norm (Normal) Urine Ketones 1+ H (Negative) Urine Blood Neg (Negative) Urine Nitrate Negative (Negative) Urine Bilirubin Neg (NEGATIVE) Urine Urobilinogen Norm (Negative) mg/dL Ur Leukocyte Stephanie ase Trace H (Negative) Urine RBC None (0-2) /hpf Urine WBC 5-10 H (0-5) /hpf Ur Squamous Epith Cells 5-10 H (0-5) Urine Bacteria 1+ H (NONE) Urine Mucus 1+ Discharge Plan Discharge Admit Provider: Pasquale Araujo Clinical Impression: Abdominal pain, Pancreatic mass, Hypothyroidism, History of biliary duct stent placement Condition: Stable Discharge Orders: Discharge Order (Routine); Ordered 11/12/19 Ordered By: Pasquale Araujo Discharge Diet: Advance as tolerated Discharge Activity: Resume usual activity Interventions: ED Discharge Assessment Last Done: 11/10/19 20:42 Discharge Date/Time: 11/10/19 20:55 Coding Level of Care Code ED Floater Operator for Chg Fwd Exam Comprehensive The documentation recorded by the Marvin mesa Bridget Annette, accurately reflects the service I personally performed and the decisions made by Uzma guan Curtis L, Nov 10, 2019 16:30
[2019-11-10 17:03] LABS: Basophils # 0.1 10^3/uL (0.0-0.1); Basophils % 0.8 %; Eosinophils # 0.1 10^3/uL (0.0-0.8); Eosinophils % 0.8 %; Hematocrit 40.4 % (37.0-47.0); Hemoglobin 13.7 g/dL (11.5-15.3); Lymphocytes # 1.6 10^3/uL (0.8-4.8); Lymphocytes % 22.3 %; Mean Corpuscular HGB Conc 33.9 g/dL (30.0-36.0); Mean Corpuscular Hemoglobin 28.7 pg (28.0-34.0); Mean Corpuscular Volume 84.5 fL (81-99); Mean Platelet Volume 9.3 fL (7.4-10.4); Monocytes # 0.5 10^3/uL (0.2-0.9); Monocytes % 6.8 %; Neutrophils # 4.9 10^3/uL (1.8-7.7); Neutrophils % 68.9 %; Nucleated Red Blood Cells % 0 %; Platelet Count 287 10^3/cmm (130-400); Red Blood Count 4.78 10^6/uL (4.1-5.3); Red Cell Distribution Width 12.2 % (12.1-15.1); White Blood Count 7.1 10^3/uL (4.0-10.0)
[2019-11-10 17:20] LABS: Alanine Aminotransferase 15 U/L (0-33); Albumin Level 4.9 g/dL (3.5-5.2); Alkaline Phosphatase 186 IU/L (35-105); Anion Gap 19.2 (5-19); Aspartate Amino Transferase 17 U/L (0-32); Blood Urea Nitrogen 13 mg/dL (8-23); Calcium 10.6 mg/dL (8.5-10.5); Carbon Dioxide 21 mmol/L (22-29); Chloride 100 mmol/L (98-107); Creatinine Clr Calc Pharmacy 57.1281; Globulin 3.1 g/dL (1.3-4.6); Glucose 133 mg/dL (65-115); Lipase 18 U/L (13-60); Potassium 3.2 mmol/L (3.5-5.1); Sodium 137 mmol/L (136-145); Total Bilirubin 0.7 mg/dL (0.15-1.2)
[2019-11-10 17:27] LABS: Glucose Urine UA Norm (Normal); Ketones Urine 1+ (Negative); Protein Urine Neg (Negative); Urine Appearance Clear (CLEAR); Urine Color Yellow (Yellow); pH Urine 6 (5-7)
[2019-11-10 17:28] LABS: Add Urine Microscopic? YES; Bilirubin Urine Neg (NEGATIVE); Blood Urine Neg (Negative); Leukocyte Esterase Urine Trace (Negative); Nitrate Urine Negative (Negative); Urobilinogen Urine Norm (Negative)
[2019-11-10 17:34] LABS: Bacteria Urine 1+; Mucus Urine 1+
[2019-11-10 17:35] LABS: Add Urine Culture? No
[2019-11-10] MEDS: ondansetron 2 mg/ML SDV 2 mL 4 MG IVP (17:54)
[2019-11-10] MEDS: HYDROmorphone 1 mg/mL INJ 1 mL 0.5 MG IVP ×2 (17:54→20:09)
[2019-11-10] MEDS: sodium chlor 0.9% + KCl 20 mEq 20 MEQ/1,000 ML BAG 125 MEQ IV (17:55)
[2019-11-10] MEDS: metoclopramide 5 mg/mL SDV 2 mL 10 MG IVP (20:09)
--- NOTE | 2019-11-10 20:43 | PC.NURSE ---
Report called to Milagro Varela. Patient to be transferred up to room
[2019-11-11] VITALS (10 sets, daily range): BP systolic 113–147; BP diastolic 71–92; PULSE 57–68; RESP 18; TEMP 36.8–37.6; O2SAT 94–99
[2019-11-11 06:27] LABS: Alanine Aminotransferase 12 U/L (0-33); Albumin Level 4.1 g/dL (3.5-5.2); Alkaline Phosphatase 151 IU/L (35-105); Anion Gap 14.6 (5-19); Blood Urea Nitrogen 13 mg/dL (8-23); Calcium 9.5 mg/dL (8.5-10.5); Carbon Dioxide 21 mmol/L (22-29); Chloride 105 mmol/L (98-107); Creatinine Clr Calc Pharmacy 57.1281; Globulin 2.5 g/dL (1.3-4.6); Glucose 124 mg/dL (65-115); Potassium 3.6 mmol/L (3.5-5.1); Sodium 137 mmol/L (136-145); Total Bilirubin 0.6 mg/dL (0.15-1.2); Total Protein 6.6 g/dL (6.6-8.7)
[2019-11-11 07:10] LABS: Aspartate Amino Transferase 17 U/L (0-32)
[2019-11-11 07:25] LABS: Basophils # 0.1 10^3/uL (0.0-0.1); Basophils % 0.9 %; Eosinophils # 0.1 10^3/uL (0.0-0.8); Eosinophils % 2.1 %; Hematocrit 35.3 % (37.0-47.0); Lymphocytes # 1.7 10^3/uL (0.8-4.8); Lymphocytes % 32.5 %; Mean Corpuscular Hemoglobin 28.8 pg (28.0-34.0); Mean Corpuscular Volume 84.9 fL (81-99); Monocytes # 0.5 10^3/uL (0.2-0.9); Monocytes % 8.8 %; Neutrophils % 55.3 %; Nucleated Red Blood Cells % 0 %; Platelet Count 241 10^3/cmm (130-400); Red Blood Count 4.16 10^6/uL (4.1-5.3); Red Cell Distribution Width 12.4 % (12.1-15.1); White Blood Count 5.4 10^3/uL (4.0-10.0)
[2019-11-11] MEDS: acetaminophen 325 mg Tablet 650 MG PO ×2 (07:58→15:35)
[2019-11-11 08:36] LABS: Procalcitonin 0.03 ng/mL (0-0.5); Thyroid Stimulating Hormone 8.09 uIU/mL (0.27-4.20)
[2019-11-11 08:49] LABS: Lipase 15 U/L (13-60); Phosphorus 3.4 mg/dL (2.5-4.5)
[2019-11-11 09:02] LABS: C Reactive Protein 0.3 mg/L (0.0-4.9)
[2019-11-11] MEDS: D5-NS 0.45% + KCL 20 mEq 20 MEQ/1,000 ML BAG 75 MEQ IV ×3 (09:52→13:42)
[2019-11-11] MEDS: cetirizine 10 mg Tablet PO (09:53)
[2019-11-11] MEDS: pantoprazole DR 40 mg Tablet PO (09:53)
[2019-11-11] MEDS: levothyroxine 88 mcg Tablet PO (09:54)
[2019-11-11] MEDS: cefTRIAXone 1,000 MG in sodium chloride 0.9% (plus) 50 ML 100 MG IV (11:36)
--- NOTE | 2019-11-11 15:31 | PC.NURSE ---
Pt was suzette to 42-41 on monitor. Patient was checked on and was found laying flat in her bed and sleeping. Palpated her radial pulse was 56 and her monitor reflected that after she woke up. Patient complains of a headache and vitals were taken. Temp was 99.5, Pulse 62 respirations 18 oxygen sat 99% on room air blood pressure 142/78.
--- NOTE | 2019-11-11 15:55 | PM.HP ---
Providers/Chief Complaint Admitting Physician: Pasquale Araujo MD Chief Complaint: N/V/D ABDOMINAL PAIN History of Present Illness Amada Metz is a 74 year old female with a past medical history of pancreatic head mass status post biliary stent placement in [facility] September 2019, hypothyroidism, who presents to the emergency room due to complaints of nausea, vomiting, abdominal pain for the past 3 days. Patient states that back in September 2019 she had a biliary stent placed for pancreatic head mass, she is supposed to follow-up with [facility] for a biopsy on November 14, 2019. Patient states that for the last 3 days she bilious vomit, felt nauseous, had generalized abdominal pain, no lightheadedness, no dizziness, no episodes of diarrhea, no fevers, no chills. Denies any history of food poisoning, denies any URI symptoms, denies any sick contact, denies any recent travel. Patient states that since her discharge from [facility], she has had 2 ER visits with similar nausea, vomiting, abdominal pain. Denies any chest pain, chest palpitations, shortness of breath, cough, URI symptoms. Review of Systems Const: Denies: fever, chills, fatigue or malaise Eyes: Denies: change in vision or blurry vision ENMT: Denies: nasal congestion Resp: Denies: shortness of breath, productive cough, non-productive cough or wheezing GI: Reports: abdominal pain, nausea and vomiting; Denies: vomiting blood, diarrhea, constipation, blood in stool or black tarry stool : Denies: flank pain, painful urination or urinary frequency Musc: Denies: neck pain or back pain Skin/Breast: Denies: rash Neuro: Denies: headache, dizziness or vertigo Psych: Denies: anxiety or depression Endo: Denies: excessive urination or excessive thirst Medications/Allergies Allergies Allergy/AdvReac Type Severity Reaction Status Date / Time gabapentin Allergy Unknown Verified 11/09/19 15:13 morphine Allergy Unknown Verified 11/09/19 15:13 pregabalin [From Lyrica] Allergy Unknown Verified 11/09/19 15:13 PFSH Acute PFSH: Medical History (Updated 11/11/19 @ 16:03 by Pasquale Araujo MD) Hypothyroidism Surgical History (Updated 11/11/19 @ 16:03 by Pasquale Araujo MD) History of biliary duct stent placement Family History (Updated 11/11/19 @ 16:03 by Pasquale Araujo MD) Other CAD (coronary artery disease) Social History (Updated 11/11/19 @ 16:03 by Pasquale Araujo MD) Smoking and tobacco status: never smoked Alcohol intake: never Substance/Drug Use: never Vitals/I&O/Wt Last Vital Signs Temp 99.5 F 11/11/19 15:34 Pulse 62 11/11/19 15:34 Resp 18 11/11/19 15:34 BP 142/78 11/11/19 15:34 Pulse Ox 99 11/11/19 15:34 11/11/19 11/11/19 11/11/19 06:59 14:59 22:59 Intake Total 1587.5 / 1587.5 Output Total 100 / 100 Balance 1487.5 / 1487.5 Weight last 48 hrs Weight 68.039 kg Physical Exam Const: COMMON NORMALS: no apparent distress and oriented x3 GENERAL APPEARANCE: cooperative and comfortable HENMT: COMMON NORMALS: normocephalic HEAD & SCALP: normocephalic Eye: COMMON NORMALS: PERRL, EOMs intact bilaterally and no papilledema GENERAL EYE: normal appearance of both eyes PUPIL: Yes PERRL DIRECT OPHTHALMOSCOPY: Yes no papilledema Neck/C-Spine: COMMON NORMALS: full ROM, no lymphadenopathy, no JVD and thyroid normal THYROID: thyroid normal Lymph: LYMPHATIC: no lymphadenopathy noted Resp: COMMON NORMALS: normal respiratory effort, no retractions, no use of accessory muscles and clear to auscultation bilaterally AUSCULTATION: clear to auscultation bilaterally Cardio: COMMON NORMALS: no JVD, regular rate, regular rhythm, S1 normal heart sound, S2 normal heart sound, no gallops, no clicks and no murmurs RATE: regular rate RHYTHM: regular rhythm HEART SOUNDS: S1 normal and S2 normal GI: COMMON NORMALS: normal to inspection, nondistended, normoactive bowel sounds, soft to palpation and no hepatosplenomegaly INSPECTION: Yes normal to inspection PALPATION: Yes soft, Yes tender Details: LLQ, RLQ, LUQ and RUQ and Yes no hepatosplenomegaly Extremity: COMMON NORMALS: normal to inspection, full ROM and no pedal edema Neuro: COMMON NORMALS: oriented x3, CN's II-XII intact bilaterally, moves all extremities and no focal motor deficits Psych: COMMON NORMALS: mental status grossly normal, thought process normal and cooperative THOUGHT PROCESS: normal thought process Data : 11/11/19 07:20 11/11/19 05:32 A&P Assessment and plan (1) Abdominal pain: -White blood cell count 7.1, creatinine 0.6, CRP 0.3, pro-Christoph 0.03, T bili 0.6, AST 17, ALT 12, alk phos 151 -No temperatures on admission, BP was 189/91, pulse was 63, respiratory rate was 16, oxygen saturation room air was 99 -Patient states that she is doing better this morning, abdominal pain has improved, nausea has improved, no diarrhea, no fevers overnight, no chills, no lightheadedness, dizziness Plan: -Zofran for nausea, Dilaudid for pain, D5 half-normal with 20 KCl for fluids -Repeat blood work this morning -We will do a CT scan with contrast of her abdomen -Monitor clinical status and GI soft diet Status: Acute Qualifiers: Abdominal location: generalized Qualified Code(s): R10.84 - Generalized abdominal pain Code(s): R10.9 - Unspecified abdominal pain (2) Pancreatic mass: Status: Acute Code(s): K86.89 - Other specified diseases of pancreas (3) History of biliary duct stent placement: Status: Acute Code(s): Z98.890 - Other specified postprocedural states (4) Hypothyroidism: Status: Acute Code(s): E03.9 - Hypothyroidism, unspecified Attestations Medical Necessity Statement*: Requires hospitalization, for nonspecific abdominal pain, nausea, vomiting Coding Level of Care Code Acute Rigger Apprentice for Chg Fwd Diagnoses Abdominal pain R10.84 Abdominal location: generalized Pancreatic mass K86.89 History of biliary duct stent placement Z98.890 Hypothyroidism E03.9
--- NOTE | 2019-11-11 16:35 | CTR_ITS ---
PROCEDURE INFORMATION: Exam: CT Abdomen And Pelvis Without Contrast Exam date and time: 11/11/2019 4:41 PM Age: 74 years old Clinical indication: Abdominal pain; Localized; Upper; Prior surgery; Surgery date: 6+ months; Surgery type: Appy, gb, hysto, pancreatic stent; Additional info: Abdominal pain, pancreatic mass S/P stenting TECHNIQUE: Imaging protocol: Computed tomography of the abdomen and pelvis without contrast. Total DLP: 680.48 mGy-cm Radiation optimization: All CT scans at this facility use at least one of these dose optimization techniques: automated exposure control; mA and/or kV adjustment per patient size (includes targeted exams where dose is matched to clinical indication); or iterative reconstruction. COMPARISON: CT abdomen pelvis w con* [id number] 10/05/2019 5:15 PM FINDINGS: Lungs: Unchanged ground-glass pulmonary nodules are noted. There is a 6.5 mm subpleural nodule left lower lobe image 14. Smaller nodules are also noted in the left lower lobe image 14 measuring 4 mm in size and image 11 measuring 4 mm in size. There is mild basilar volume loss. Liver: Unremarkable.No mass. Gallbladder and bile ducts: There has been a cholecystectomy. There is unchanged pneumobilia. A biliary stent is present. Pancreas: Unchanged pancreatic atrophy. Poorly defined masslike enlargement of the head of the pancreas is unchanged in appearance. Spleen: Normal. No splenomegaly. Adrenals: Normal. No mass. Kidneys and ureters: There is no evidence of hydronephrosis. There is no evidence of renal calcifications. Stomach and bowel: Extensive diverticulosis is present in the distal colon. There is no evidence of colitis/diverticulitis. The majority of the colon is almost completely collapsed but the wall of the colon does appear mildly and diffusely thickened concerning for mild diffuse colitis new since the prior exam. There is some haziness of the pericolonic fat. The loops of small bowel have an appropriate appearance. Appendix: No evidence of appendicitis. Intraperitoneal space: Unremarkable. No free air. No significant fluid collection. Vasculature: The aorta demonstrates moderate atherosclerotic calcification. Lymph nodes: Unremarkable.No enlarged lymph nodes. Bladder: The bladder is decompressed. Reproductive: Unremarkable as visualized. Bones/joints: There is scoliosis. Moderate degenerative changes in the spine are noted. Soft tissues: There is an unchanged incidental fat containing spigelian/lumbar hernia right lower abdominal wall image 45. CT/CT abdomen pelvis wo con [id number] IMPRESSION: 1. Unchanged pulmonary micro nodules. These are stable dating back to October 27, 2013. No follow-up is necessary. 2. The majority of the colon is almost completely collapsed but the wall of the colon does appear mildly and diffusely thickened concerning for mild diffuse colitis new since the prior exam. 3. Unchanged masslike enlargement of the head of the pancreas. Biliary stent and pneumobilia are noted. Radiation Dose CTDIVOL = (mGy): DLP = 680.48 (mGy-cm)
[2019-11-11] MEDS: ondansetron 2 mg/ML SDV 2 mL 4 MG IVP (18:31)
[2019-11-11] MEDS: TRAMadol 50 mg Tablet PO (20:44)
[2019-11-11] MEDS: trazodone 150 mg Tablet PO (21:27)
--- NOTE | 2019-11-11 22:08 | PC.CHAP ---
Pastoral Care Encounter/Spiritual Assessment Type of Contact [] Declined video game technician visit [] Patient/Family/Request visit [] Outpatient visit [] Follow-up visit [] Physician referral [] Code/Alert [X] Routine visit [] Staff referral [] Actively dying [] Patient sleeping [] Family support [] [] Out of room [] Palliative care [] [] Receiving care in room [] Pre-surgical visit [] Trauma [] Long length of stay [] ICU visit [] Other: Relational/Emotional Strength [] Patient feels connected with others/family/visitors/staff [] Distress [] Loneliness/isolation [] Abandonment Spirituality of Patient [] Person of Essence [] Attends Orthodoxy of their Essence [] Believes in Prayer [] Reads Bible or Sabianist materials [] There are Spiritual issues to be addressed Cocktail Server Interventions [X] Prayer [] Active listening [] Non-anxious presence [] Spiritual/emotional support [] Crisis/trauma care [] Spiritual counseling [] Bereavement support [] Provided bereavement packet [] Provided Bible/devotional materials [] Provided toy/stuffed animal, coloring book to patient or family member [] Provided Communion [] Anointing/[place] [] Salvation [] Completed spiritual assessment [] Other: Impact on Illness or Injury [] Angry [] Fearful [] Anxious [] Often cries [] Exhaustion [] Unable to work [] Unable to attend faith [] Unable to walk/stand [] Unable to read [] Unable to drive [] Unable to eat/drink [] Unable to sleep [] Unable to be with family [] Patient intubated [] Other: Summary Time spent with patient
[2019-11-11] MEDS: HYDROmorphone 1 mg/mL INJ 1 mL IVP (23:22)
[2019-11-12 04:00] VITALS: BP 156/82; PULSE 65; RESP 18; TEMP 37; O2SAT 97
[2019-11-12] MEDS: acetaminophen 325 mg Tablet 650 MG PO (04:05)
[2019-11-12] MEDS: D5-NS 0.45% + KCL 20 mEq 20 MEQ/1,000 ML BAG 75 MEQ IV ×3 (04:21→10:23)
[2019-11-12 05:50] LABS: Basophils # 0.1 10^3/uL (0.0-0.1); Basophils % 0.9 %; Eosinophils # 0.2 10^3/uL (0.0-0.8); Eosinophils % 3.1 %; Hematocrit 39.2 % (37.0-47.0); Lymphocytes % 36.1 %; Mean Corpuscular HGB Conc 33.2 g/dL (30.0-36.0); Mean Corpuscular Hemoglobin 28.8 pg (28.0-34.0); Mean Corpuscular Volume 86.9 fL (81-99); Mean Platelet Volume 9.6 fL (7.4-10.4); Monocytes # 0.5 10^3/uL (0.2-0.9); Monocytes % 9.8 %; Neutrophils # 2.7 10^3/uL (1.8-7.7); Neutrophils % 49.9 %; Nucleated Red Blood Cells % 0 %; Platelet Count 225 10^3/cmm (130-400); Red Blood Count 4.51 10^6/uL (4.1-5.3); Red Cell Distribution Width 12.2 % (12.1-15.1); White Blood Count 5.4 10^3/uL (4.0-10.0)
[2019-11-12 06:21] LABS: Alanine Aminotransferase 14 U/L (0-33); Albumin Level 4.3 g/dL (3.5-5.2); Alkaline Phosphatase 152 IU/L (35-105); Anion Gap 13.3 (5-19); Aspartate Amino Transferase 16 U/L (0-32); Blood Urea Nitrogen 6 mg/dL (8-23); Calcium 9.9 mg/dL (8.5-10.5); Carbon Dioxide 22 mmol/L (22-29); Chloride 104 mmol/L (98-107); Creatinine Clr Calc Pharmacy 57.1281; Glucose 134 mg/dL (65-115); Magnesium 1.9 mg/dL (1.7-2.3); Phosphorus 2.9 mg/dL (2.5-4.5); Potassium 3.3 mmol/L (3.5-5.1); Sodium 136 mmol/L (136-145); Total Bilirubin 0.7 mg/dL (0.15-1.2); Total Protein 7.3 g/dL (6.6-8.7)
[2019-11-12 06:32] LABS: Procalcitonin 0.05 ng/mL (0-0.5)
[2019-11-12 07:34] VITALS: BP 148/89; PULSE 65; RESP 16; TEMP 36.7; O2SAT 95
[2019-11-12] MEDS: pantoprazole DR 40 mg Tablet PO (10:22)
[2019-11-12] MEDS: cetirizine 10 mg Tablet PO (10:22)
[2019-11-12] MEDS: levothyroxine 88 mcg Tablet PO (10:23)
[2019-11-12 11:16] VITALS: BP 124/72; PULSE 57; RESP 18; TEMP 37.2; O2SAT 97
--- NOTE | 2019-11-12 11:36 | P.DS_ITS ---
Discharge Providers Date of Admission: 11/10/19 18:25 Date of Discharge: November 12, 2019 Attending Provider at Admission: Pasquale Araujo MD Attending Provider at Discharge: Pasquale Araujo MD Diagnoses at Discharge Discharge Diagnosis (1) Abdominal pain: Status: Acute Qualifiers: Abdominal location: generalized Qualified Code(s): R10.84 - Generalized abdominal pain (2) Pancreatic mass: Status: Acute (3) History of biliary duct stent placement: Status: Acute (4) Hypothyroidism: Status: Acute Reason for Visit Reason for Visit: Reason For Visit: N/V/D ABDOMINAL PAIN Hospital Course Discharge Summary: This is a 74-year-old female with past medical history of pancreatic head mass status post biliary stent placement [facility] September 2019, hypothyroidism, who presented to the emergency room due to complaints of nausea, vomiting, abdominal pain for the past 3 days. Patient was admitted to the general medical floors, received IV hydration, pain control, nausea control, her CT of her abdomen showed mild diffuse colitis, mass like enlargement of the head of the pancreas, with biliary stent. Patient's clinically improved, nausea was well controlled, pain was minimal, had adequate bowel movements, was discharged with instructions to follow-up at [facility] on November 14, 2019. Patient also had evidence of a UTI, received Rocephin, discharged on Bactrim Physical Exam Const: COMMON NORMALS: no apparent distress and oriented x3 GENERAL APPEARANCE: cooperative and comfortable HENMT: COMMON NORMALS: normocephalic HEAD & SCALP: normocephalic Eye: COMMON NORMALS: PERRL, EOMs intact bilaterally and no papilledema GENERAL EYE: normal appearance of both eyes PUPIL: Yes PERRL DIRECT OPHTHALMOSCOPY: Yes no papilledema Neck/C-Spine: COMMON NORMALS: full ROM, no lymphadenopathy, no JVD and thyroid normal THYROID: thyroid normal Lymph: LYMPHATIC: no lymphadenopathy noted Resp: COMMON NORMALS: normal respiratory effort, no retractions, no use of accessory muscles and clear to auscultation bilaterally AUSCULTATION: clear to auscultation bilaterally Cardio: COMMON NORMALS: no JVD, regular rate, regular rhythm, S1 normal heart sound, S2 normal heart sound, no gallops, no clicks and no murmurs RATE: regular rate RHYTHM: regular rhythm HEART SOUNDS: S1 normal and S2 normal GI: COMMON NORMALS: normal to inspection, nondistended, normoactive bowel sounds, soft to palpation, non-tender and no hepatosplenomegaly PALPATION: Yes soft and Yes no hepatosplenomegaly Extremity: COMMON NORMALS: normal to inspection, full ROM and no pedal edema Neuro: COMMON NORMALS: oriented x3, CN's II-XII intact bilaterally, moves all extremities and no focal motor deficits Psych: COMMON NORMALS: mental status grossly normal, thought process normal and cooperative THOUGHT PROCESS: normal thought process Discharge Data Data Completed and Pending: Completed Studies During Hospitalization Category Date Time Status CT abdomen pelvis wo con [id number] Stat Cat Scan 11/11/19 16:35 Completed Pending at discharge Category Date Time Status Comprehensive Met abolic Panel AM LA BS Lab 11/13/19 04:00 Ordered Comprehensive Met abolic Panel AM LA BS Lab 11/14/19 04:00 Ordered Magnesium AM LABS Lab 11/13/19 04:00 Ordered Magnesium AM LABS Lab 11/14/19 04:00 Ordered Phosphorus AM LAB S Lab 11/13/19 04:00 Ordered Phosphorus AM LAB S Lab 11/14/19 04:00 Ordered Procalcitonin AM LABS Lab 11/13/19 04:00 Ordered Procalcitonin AM LABS Lab 11/14/19 04:00 Ordered Labs from last 24 hours 11/12/19 11/12/19 11/12/19 05:00 05:00 05:00 WBC 5.4 RBC 4.51 Hgb 13.0 Hct 39.2 MCV 86.9 MCH 28.8 MCHC 33.2 RDW 12.2 Plt Count 225 MPV 9.6 Neut % (Auto) 49.9 Lymph % (Auto) 36.1 [place] % (Auto) 9.8 Eos % (Auto) 3.1 Baso % (Auto) 0.9 Neut # (Auto) 2.7 Lymph # (Auto) 2.0 [place] # (Auto) 0.5 Eos # (Auto) 0.2 Baso # (Auto) 0.1 Nucleated RBC % (a uto) 0 Nucleated RBCs # 0.0 Sodium 136 Potassium 3.3 L Chloride 104 Carbon Dioxide 22 Anion Gap 13.3 BUN 6 L Creatinine 0.5 Glucose 134 H Calcium 9.9 Phosphorus 2.9 Magnesium 1.9 Total Bilirubin 0.7 AST 16 ALT 14 Alkaline Phosphata se 152 H Total Protein 7.3 Albumin 4.3 Globulin 3.0 Procalcitonin 0.05 Vitals: Last Vital Signs Temp 99.0 F 11/12/19 11:16 Pulse 57 L 11/12/19 11:16 Resp 18 11/12/19 11:16 BP 124/72 11/12/19 11:16 Pulse Ox 97 11/12/19 11:16 Discharge Plan Discharge Patient Disposition: Home, Self-Care Condition: Stable Prescriptions: New Bactrim DS 800-160 mg tablet 1 tab PO BID 5 Days Qty: 10 RF: 0 Zofran 4 mg tablet 4 mg PO Q8H PRN (Reason: nausea and vomiting) 14 Days Qty: 42 RF: 0 Continued cetirizine 10 mg Tablet 10 mg PO DAILY RF: 0 omeprazole 40 mg Capsule,Delayed Release(Dr/Ec) 40 mg PO DAILY RF: 0 levothyroxine 88 mcg Tablet 88 mcg PO DAILY RF: 0 trazodone 150 mg Tablet 150 mg PO BEDTIME PRN (Reason: Sleep) RF: 0 darifenacin [Enablex] 7.5 mg Tablet Extended Release 24 Hr 7.5 mg PO DAILY RF: 0 tramadol 50 mg Tablet 50 mg PO DAILY 14 Days Qty: 14 RF: 0 promethazine 25 mg tablet 25 mg PO Q6H PRN (Reason: nausea and vomiting) 14 Days Qty: 14 RF: 0 Discharge Orders: Discharge Order (Routine); Ordered 11/12/19 Ordered By: Pasquale Araujo Discharge Diet: Advance as tolerated Discharge Activity: Resume usual activity Activity Restrictions/Additional Instructions: -Drink plenty of electrolyte balance fluids -Follow-up with [facility] November 13 Discharge Attestations Time Spent in Discharge Care*: less than 30 min Quality Metrics Clinical Quality Measures During this hospital stay, did patient experience: None Coding Level of Care Code Acute Direct Service Provider for Chg Fwd Diagnoses Abdominal pain R10.84 Abdominal location: generalized Pancreatic mass K86.89 History of biliary duct stent placement Z98.890 Hypothyroidism E03.9
[2019-11-12] MEDS: cefTRIAXone 1,000 MG in sodium chloride 0.9% (plus) 50 ML 100 MG IV (11:48)
[2019-11-12] MEDS: ketorolac 30 mg/mL INJ 15 MG IVP (11:49)
[2019-11-12] MEDS: ondansetron 2 mg/ML SDV 2 mL 4 MG IVP (11:52)
[2019-11-12 13:50] VITALS: BP 124/72; PULSE 57; RESP 18; TEMP 37.2; O2SAT 97
== END 2019-11-12 17:34 | disposition home or self-care (01) ==
LOC: ER 17:45 → MEDSURG 19:08
PROVIDERS: Admitting Provider Family Medicine; Emergency Provider Family Medicine; Family Provider Nurse Practitioner Primary Care; Visit Provider Family Medicine
DX: R10.84 Generalized abdominal pain (principal); K86.89 Other specified diseases of pancreas; Z98.890 Other specified postprocedural states; E03.9 Hypothyroidism, unspecified; Z82.49 Family history of ischemic heart disease and other diseases of the circulatory system
CPT/HCPCS: 12345; 36415; 74176; 80053; 81001; 83605; 83690; 83735; 84100; 84145; 84443; 85025; 86140; 94664; 96360; 96361; 96365; 96366; 96374; 96375; 96376; 99283; 99285; A9270; G0378; J0696; J1170; J1885; J2405; J2765

== ENCOUNTER 2019-12-13 13:04 | Emergency (ER) | payer MEDICAID, SELFPAY ==
[2019-12-13 13:05] VITALS: BP 164/93; PULSE 58; RESP 17; TEMP 37; O2SAT 100; BMI 26.5
--- NOTE | 2019-12-13 13:13 | W.ED.ABDPA2 ---
HPI - Abdominal Pain General: Chief Complaint: Abdominal Pain Stated Complaint: ABD PAIN Time Seen by Provider: 12/13/19 13:08 Source: patient Limitations: no limitations History of Present Illness: HPI narrative: 74-year-old female has a history of pancreatic cancer and abdominal pain from her cancer. She states she is ran out of her pain meds and is having increasing pain since then. States her pain is diffuse in nature and rates it an 8 out of 10. She has had some nausea. Denies any fevers. Denies any worsening improving factors. MD elicited complaint: abdominal pain Onset (ago): hour(s) Pain Consistency: constant Location: Diffuse Pain scale (0-10): 6 Associated Symptoms: Denies chills, diarrhea, dysuria, fever(s), nausea and vomiting Review of Systems Const: Denies: fever, chills, body aches or change in appetite Eyes: Denies: blurry vision or eye discomfort ENMT: Denies: throat pain or dental pain Card: Denies: chest pain Resp: Denies: shortness of breath GI: Reports: abdominal pain; Denies: nausea, vomiting or diarrhea : Denies: painful urination Musc: Denies: neck pain or back pain Skin/Breast: Denies: rash Neuro: Denies: headache Psych: Denies: depression [place]/Lymph: Denies: easy bruising All/Imm: Denies: hives PFSH ED PFSH: Medical History Hypothyroidism Surgical History History of biliary duct stent placement Family History Other CAD (coronary artery disease) Social History Smoking and tobacco status: former smoker Alcohol intake: never Physical Exam Const: COMMON NORMALS: no apparent distress, oriented x3 and healthy appearing HENMT: COMMON NORMALS: normocephalic and head/scalp atraumatic HEAD & SCALP: normocephalic and atraumatic Eye: COMMON NORMALS: PERRL and EOMs intact bilaterally PUPIL: Yes PERRL Neck/C-Spine: COMMON NORMALS: full ROM and supple Chest: COMMONS NORMALS: inspection of chest normal and palpation of chest normal Resp: COMMON NORMALS: normal respiratory effort, no retractions, no use of accessory muscles and clear to auscultation bilaterally AUSCULTATION: clear to auscultation bilaterally Cardio: COMMON NORMALS: regular rate, regular rhythm and no murmurs RATE: regular rate RHYTHM: regular rhythm GI: COMMON NORMALS: normal to inspection, nondistended, normoactive bowel sounds, soft to palpation, non-tender and no masses PALPATION: Yes soft Extremity: COMMON NORMALS: normal to inspection and full ROM Neuro: COMMON NORMALS: oriented x3, moves all extremities and no focal motor deficits Psych: COMMON NORMALS: mental status grossly normal, thought process normal and cooperative THOUGHT PROCESS: normal thought process Skin: COMMON NORMALS: no rashes or lesions noted and no wounds GENERAL SKIN EXAM: no rashes or lesions noted Course Vital Signs: Vital signs: Vital Signs Temperature 98.6 F 12/13/19 13:05 Pulse Rate 58 L 12/13/19 15:34 Respiratory Rate 18 12/13/19 15:34 Blood Pressure 177/91 12/13/19 15:34 Pulse Oximetry 100 12/13/19 15:34 MDM - Abdominal Pain MDM Narrative: Medical decision making narrative: pt presents here with abdominal pain that is chronic in nature from her pancreatic mass. Pt is well appearing here and is now pain free. will prescribe her pain meds for home. she is to follow up with pcp in 2-4 days and return if worsening. Lab Data: Labs: Lab Results 12/13/19 12/13/19 Range/Units 14:06 14:06 WBC 6.6 (4.0-10.0) 10^3/ uL RBC 4.43 (4.1-5.3) 10^6/u L Hgb 13.2 (11.5-15.3) g/dL Hct 38.3 (37.0-47.0) % MCV 86.5 (81-99) fL MCH 29.8 (28.0-34.0) pg MCHC 34.5 (30.0-36.0) g/dL RDW 11.9 L (12.1-15.1) % Plt Count 263 (130-400) 10^3/c mm MPV 9.9 (7.4-10.4) fL Neut % (Auto) 80.2 % Lymph % (Auto) 14.7 % [place] % (Auto) 4.0 % Eos % (Auto) 0.3 % Baso % (Auto) 0.6 % Neut # (Auto) 5.3 (1.8-7.7) 10^3/u L Lymph # (Auto) 1.0 (0.8-4.8) 10^3/u L [place] # (Auto) 0.3 (0.2-0.9) 10^3/u L Eos # (Auto) 0.0 (0.0-0.8) 10^3/u L Baso # (Auto) 0.0 (0.0-0.1) 10^3/u L Nucleated RBC % (a uto) 0 % Nucleated RBCs # 0.0 /100WBC Sodium 140 (136-145) mmol/L Potassium 3.3 L (3.5-5.1) mmol/L Chloride 106 (98-107) mmol/L Carbon Dioxide 17 L (22-29) mmol/L Anion Gap 20.3 H (5-19) BUN 12 (8-23) mg/dL Creatinine 0.7 (0.5-0.9) mg/dL Glucose 169 H (65-115) mg/dL Calculated Osmolal ity 290 (285-295) mOsm/k g Calcium 10.3 (8.5-10.5) mg/dL Total Bilirubin 0.8 (0.15-1.2) mg/dL AST 17 (0-32) U/L ALT 14 (0-33) U/L Alkaline Phosphata se 172 H (35-105) IU/L Total Protein 7.2 (6.6-8.7) g/dL Albumin 4.4 (3.5-5.2) g/dL Globulin 2.8 (1.3-4.6) g/dL Lipase 13 (13-60) U/L Discharge Plan Discharge Patient Disposition: Home, Self-Care Clinical Impression: Pancreatic mass Abdominal pain Qualifiers: Abdominal location: generalized Qualified Code(s): R10.84 - Generalized abdominal pain Condition: Stable Prescriptions: [place] 5-325 mg tablet 1 tab PO Q6H PRN (Reason: pain) Qty: 14 RF: 0 prednisone 50 mg tablet 50 mg PO DAILY Qty: 5 RF: 0 No Action cetirizine 10 mg Tablet 10 mg PO DAILY RF: 0 omeprazole 40 mg Capsule,Delayed Release(Dr/Ec) 40 mg PO DAILY RF: 0 levothyroxine 88 mcg Tablet 88 mcg PO DAILY RF: 0 trazodone 150 mg Tablet 150 mg PO BEDTIME PRN (Reason: Sleep) RF: 0 darifenacin [Enablex] 7.5 mg Tablet Extended Release 24 Hr 7.5 mg PO DAILY RF: 0 tramadol 50 mg Tablet 50 mg PO DAILY 14 Days Qty: 14 RF: 0 promethazine 25 mg tablet 25 mg PO Q6H PRN (Reason: nausea and vomiting) 14 Days Qty: 14 RF: 0 Discharge Orders: Discharge Order (Routine); Ordered 12/13/19 Ordered By: Narendra Yung Referrals: Fiona Henriquez DRY CANS OPERATOR [Family Provider] - Discharge Diet: Advance as tolerated Discharge Activity: Resume usual activity Patient Instructions: Abdominal Pain (ED) Coding Level of Care Code ED Land Title Examiner for Chg Fwd Exam Comprehensive
[2019-12-13] MEDS: ondansetron 2 mg/ML SDV 2 mL 4 MG IVP (14:11)
[2019-12-13 14:12] VITALS: RESP 18; O2SAT 99
[2019-12-13] MEDS: HYDROmorphone 1 mg/mL INJ 1 mL IVP ×2 (14:12→14:53)
[2019-12-13] MEDS: sodium chloride 0.9% 1,000 ML 999 ML IV (14:13)
[2019-12-13 14:20] LABS: Basophils % 0.6 %; Eosinophils % 0.3 %; Hematocrit 38.3 % (37.0-47.0); Hemoglobin 13.2 g/dL (11.5-15.3); Lymphocytes % 14.7 %; Mean Corpuscular HGB Conc 34.5 g/dL (30.0-36.0); Mean Corpuscular Hemoglobin 29.8 pg (28.0-34.0); Mean Corpuscular Volume 86.5 fL (81-99); Mean Platelet Volume 9.9 fL (7.4-10.4); Monocytes # 0.3 10^3/uL (0.2-0.9); Neutrophils # 5.3 10^3/uL (1.8-7.7); Neutrophils % 80.2 %; Nucleated Red Blood Cells % 0 %; Platelet Count 263 10^3/cmm (130-400); Red Blood Count 4.43 10^6/uL (4.1-5.3); Red Cell Distribution Width 11.9 % (12.1-15.1); White Blood Count 6.6 10^3/uL (4.0-10.0)
[2019-12-13 14:34] LABS: Alanine Aminotransferase 14 U/L (0-33); Albumin Level 4.4 g/dL (3.5-5.2); Alkaline Phosphatase 172 IU/L (35-105); Anion Gap 20.3 (5-19); Aspartate Amino Transferase 17 U/L (0-32); Blood Urea Nitrogen 12 mg/dL (8-23); Calcium 10.3 mg/dL (8.5-10.5); Carbon Dioxide 17 mmol/L (22-29); Chloride 106 mmol/L (98-107); Creatinine Clr Calc Pharmacy 57.1281; Globulin 2.8 g/dL (1.3-4.6); Glucose 169 mg/dL (65-115); Lipase 13 U/L (13-60); Osmolality Calculated 290 mOsm/kg (285-295); Potassium 3.3 mmol/L (3.5-5.1); Sodium 140 mmol/L (136-145); Total Bilirubin 0.8 mg/dL (0.15-1.2); Total Protein 7.2 g/dL (6.6-8.7)
[2019-12-13 14:53] VITALS: RESP 18; O2SAT 98
[2019-12-13] MEDS: diphenhydrAMINE 50 mg/mL SDV 1mL 25 MG IVP (14:53)
[2019-12-13 15:34] VITALS: BP 177/91; PULSE 58; RESP 18; O2SAT 100
[2019-12-13 16:27] VITALS: BP 153/66; PULSE 60; RESP 18; O2SAT 99
== END 2019-12-13 16:28 | disposition home or self-care (01) ==
PROVIDERS: Emergency Provider Emergency Medicine; Family Provider Nurse Practitioner Primary Care
DX: K86.89 Other specified diseases of pancreas (principal); R10.84 Generalized abdominal pain; E03.9 Hypothyroidism, unspecified; Z87.891 Personal history of nicotine dependence
CPT/HCPCS: 12345; 36415; 80053; 83690; 85025; 96361; 96374; 96375; 96376; 99282; 99283; J1170; J1200; J2405; J7030

== ENCOUNTER 2020-02-10 15:51 | Emergency (ER) | payer MEDICAID, SELFPAY ==
[2020-02-10 15:52] VITALS: BMI 27.4
[2020-02-10 15:56] VITALS: BP 177/93; PULSE 65; RESP 20; TEMP 36.8; O2SAT 97
[2020-02-10 16:27] VITALS: BP 180/94; PULSE 73; RESP 18; O2SAT 93
--- NOTE | 2020-02-10 16:32 | PC.NURSE ---
COMES FROM HOME , VOMITING ONSET TODAY. PUT FINGERS IN HER MOUTH TO MAKE HERSELF VOMIT. OFFERED WARM BLANKETS AND WET CLOTH. ALERT AND ORIENTED
--- NOTE | 2020-02-10 16:33 | XRR_ITS ---
PROCEDURE INFORMATION: Exam: XR Abdomen, 2 Views Exam date and time: 02/10/2020 4:33 PM Age: 74 years old Clinical indication: Vomiting; Prior surgery; Surgery date: 6+ months; Surgery type: Hysterectomy, pancreas, stomach; Patient HX: HX of pancreatic and stomach cancer TECHNIQUE: Imaging protocol: XR of the abdomen. Views: 2 Views. COMPARISON: No relevant prior studies available. FINDINGS: Gastrointestinal tract: Normal. No bowel dilation. Intraperitoneal space: Normal. No free air. Bones/joints: There is mild lumbar spine dextroscoliosis XR/XR acute abdomen series [id number] IMPRESSION: No acute GI abnormality. Negative chest examination Lumbar spine dextroscoliosis
[2020-02-10] MEDS: fentaNYL 50 mcg/mL INJ 2mL IVP (16:45)
[2020-02-10] MEDS: haloperidol inj 5 mg/mL INJ 1 mL 2 MG IVP (16:45)
[2020-02-10] MEDS: ondansetron 2 mg/ML SDV 2 mL 4 MG IVP (16:45)
[2020-02-10] MEDS: sodium chloride 0.9% 1,000 ML 999 ML IV (16:46)
[2020-02-10 17:09] LABS: Basophils % 0.6 %; Hematocrit 33.7 % (37.0-47.0); Hemoglobin 10.3 g/dL (11.5-15.3); Lymphocytes # 0.5 10^3/uL (0.8-4.8); Lymphocytes % 11.3 %; Mean Corpuscular HGB Conc 30.6 g/dL (30.0-36.0); Mean Corpuscular Hemoglobin 26.3 pg (28.0-34.0); Mean Corpuscular Volume 86.2 fL (81-99); Mean Platelet Volume 9.6 fL (7.4-10.4); Monocytes # 0.1 10^3/uL (0.2-0.9); Monocytes % 1.7 %; Neutrophils % 86.2 %; Nucleated Red Blood Cells % 0 %; Platelet Count 292 10^3/cmm (130-400); Red Blood Count 3.91 10^6/uL (4.1-5.3); Red Cell Distribution Width 13.9 % (12.1-15.1); White Blood Count 4.6 10^3/uL (4.0-10.0)
[2020-02-10 17:09] LABS: Add Urine Microscopic? NO
--- NOTE | 2020-02-10 17:09 | ED_ITS ---
HPI - Nausea/Vomiting/Diarrhea General: Chief complaint: Nausea/Vomiting/Diarrhea Stated complaint: VOMITING Time Seen by Provider: 02/10/20 16:08 History of Present Illness: HPI Narrative: 74-year-old lady with a history of pancreatic cancer. She has chronic pain and nausea related to her cancer. She complains of vomiting today and increasing pain. No fever. She has vomited multiple times. MD elicited complaint: vomiting and abdominal pain Pertinent past history: other (Cancer) Onset (ago): hour(s) Description of vomiting: food contents and watery Associated nausea: Yes Associated abdominal pain: Yes Location of pain: Epigastric Radiation: diffuse Pain consistency: intermittent Severity: moderate Relieving factors: none Context: history of abdominal surgery Associated symtoms: Reports decreased urine output and nausea; Denies anxiety, change in vision, chest pain, dizziness, dysuria, headache(s) or palpitations Review of Systems Const: Reports: chills; Denies: fever(s) Eyes: Denies: change in vision ENMT: Denies: bleeding gums, change in hearing, post nasal drip or sinus pain Card: Denies: chest pain, palpitations, irregular heart rhythm or edema Resp: Denies: dyspnea, productive cough, non-productive cough or wheezing GI: Reports: nausea : Denies: dysuria, urinary frequency, urinary urgency or hematuria Musc: Denies: neck pain or back pain Skin/Breast: Denies: rash, pruritus or erythema Neuro: Denies: headache(s), dizziness, vertigo or confusion Psych: Denies: anxiety PFSH ED PFSH: Medical History (Updated 02/10/20 @ 17:54 by Michael Adamson DO) Hypothyroidism Surgical History History of biliary duct stent placement Family History Other CAD (coronary artery disease) Social History Smoking and tobacco status: never smoked Alcohol intake: never Physical Exam Const: GENERAL APPEARANCE: ill appearing and frail appearing ORIENTATION/CONSCIOUSNESS: Yes oriented to person, Yes oriented to place and Yes oriented to time HENMT: COMMON NORMALS: external ears normal and Normal external nose present FACE & SINUS: normal facial exam NOSE: Normal external nose present and No nasal discharge present EXTERNAL EAR: Yes external ears normal MOUTH: tongue normal TEETH & GINGIVA: no abnormal tooth and associated gingiva THROAT: posterior oropharynx normal; no peritonsillar mass Eye: COMMON NORMALS: EOMs intact bilaterally EYELID: eyelids normal CONJUNCTIVA: Yes conjunctival abnormal positive bilateral pallor Neck/C-Spine: GENERAL: No tracheal deviation Chest: COMMONS NORMALS: normal inspection of the chest CHEST: No tenderness Resp: COMMON NORMALS: clear to auscultation bilaterally EFFORT & INSPECTION: No tachypneic, No respiratory distress, No retractions, No uses accessory muscles and No tracheal deviation AUSCULTATION: clear to auscultation bilaterally, no rhonchi, no wheezes and lung sounds not diminished Cardio: COMMON NORMALS: regular rate and regular rhythm RATE: regular rate RHYTHM: regular rhythm HEART SOUNDS: no murmurs PERIPHERAL PULSES: radial pulses present GI: INSPECTION: No abdominal distension AUSCULTATION: No Hyperactive bowel sounds present and No Hypoactive bowel sounds present PALPATION: Yes Tenderness to palpation present (GI) (diffuse), No Guarding due to palpation present (GI) and No Rigid due to palpation PERCUSSION: no dullness to percussion and no tympanic to percussion Neuro: SENSORIUM/ORIENTATION: Yes oriented to person, Yes oriented to place and Yes oriented to time Psych: COMMON NORMALS: mental status grossly normal Skin: COMMON NORMALS: no rashes or lesions noted GENERAL SKIN EXAM: no rashes or lesions noted Course Vital Signs: Vital signs: Vital Signs Temperature 98.3 F 02/10/20 15:56 Pulse Rate 73 02/10/20 16:27 Respiratory Rate 18 02/10/20 16:27 Blood Pressure 180/94 02/10/20 16:27 Pulse Oximetry 93 02/10/20 16:27 MDM - Nausea/Vomiting/Diarrhea MDM Narrative: Medical decision making narrative: 74-year-old lady with chronic abdominal pain. She presents with pain and vomiting. She has been noted by nursing staff to be sticking her fingers down her throat to make herself vomit. Her hemoglobin is 10. Her white blood cell count is 4.6. Bicarbonate level is 19. She has been given IV fluid. Been given pain and nausea medication. She is not vomited since. There is no obstructive pattern on her KUB/acute abdominal series. She appears to be out of her promethazine. She does appear constipated. Lab Data: Labs: Lab Results 02/10/20 02/10/20 02/10/20 Range/Units 15:53 16:57 16:57 WBC 4.6 (4.0-10.0) 10^3/ uL RBC 3.91 L (4.1-5.3) 10^6/u L Hgb 10.3 L (11.5-15.3) g/dL Hct 33.7 L (37.0-47.0) % MCV 86.2 (81-99) fL MCH 26.3 L (28.0-34.0) pg MCHC 30.6 (30.0-36.0) g/dL RDW 13.9 (12.1-15.1) % Plt Count 292 (130-400) 10^3/c mm MPV 9.6 (7.4-10.4) fL Neut % (Auto) 86.2 % Lymph % (Auto) 11.3 % [place] % (Auto) 1.7 % Eos % (Auto) 0.0 % Baso % (Auto) 0.6 % Neut # (Auto) 4.0 (1.8-7.7) 10^3/u L Lymph # (Auto) 0.5 L (0.8-4.8) 10^3/u L [place] # (Auto) 0.1 L (0.2-0.9) 10^3/u L Eos # (Auto) 0.0 (0.0-0.8) 10^3/u L Baso # (Auto) 0.0 (0.0-0.1) 10^3/u L Nucleated RBC % (a uto) 0 % Nucleated RBCs # 0.0 /100WBC Sodium 136 (136-145) mmol/L Chloride 102 (98-107) mmol/L Carbon Dioxide 19 L (22-29) mmol/L Anion Gap 17.9 (5-19) BUN 7 L (8-23) mg/dL Creatinine 0.4 L (0.5-0.9) mg/dL Glucose 174 H (65-115) mg/dL Calculated Osmolal ity 282 L (285-295) mOsm/k g Calcium 9.5 (8.5-10.5) mg/dL Total Bilirubin 0.5 (0.15-1.2) mg/dL AST 32 (0-32) U/L ALT 30 (0-33) U/L Alkaline Phosphata se 253 H (35-105) IU/L C-Reactive Protein 0.3 (0.0-4.9) mg/L Total Protein 6.8 (6.6-8.7) g/dL Albumin 3.6 (3.5-5.2) g/dL Globulin 3.2 (1.3-4.6) g/dL Lipase 5 L (13-60) U/L Urine Color Yellow (Yellow) Urine Appearance Clear (CLEAR) Urine pH 7 (5-7) Ur Specific Gravit y 1.010 (1.005-1.030) Urine Protein Neg (Negative) Urine Glucose (UA) 1+ (Normal) Urine Ketones 2+ H (Negative) Urine Blood Neg (Negative) Urine Nitrate Negative (Negative) Urine Bilirubin Neg (NEGATIVE) Urine Urobilinogen Norm (Negative) mg/dL Ur Leukocyte Stephanie ase Negative (Negative) Discharge Plan Discharge Patient Disposition: Home, Self-Care Clinical Impression: Pancreatic mass Abdominal pain Qualifiers: Abdominal location: generalized Qualified Code(s): R10.84 - Generalized abdominal pain Constipation Qualifiers: Constipation type: slow transit constipation Qualified Code(s): K59.01 - Slow transit constipation Condition: Stable Prescriptions: New Zofran 4 mg tablet 4 mg PO Q6H PRN (Reason: nausea and vomiting) Qty: 10 RF: 0 promethazine 25 mg tablet 25 mg PO Q4H PRN (Reason: nausea and vomiting) Qty: 10 RF: 0 No Action cetirizine 10 mg Tablet 10 mg PO DAILY RF: 0 omeprazole 40 mg Capsule,Delayed Release(Dr/Ec) 40 mg PO DAILY RF: 0 levothyroxine 88 mcg Tablet 88 mcg PO DAILY RF: 0 trazodone 150 mg Tablet 150 mg PO BEDTIME PRN (Reason: Sleep) RF: 0 darifenacin [Enablex] 7.5 mg Tablet Extended Release 24 Hr 7.5 mg PO DAILY RF: 0 tramadol 50 mg Tablet 50 mg PO DAILY 14 Days Qty: 14 RF: 0 promethazine 25 mg tablet 25 mg PO Q6H PRN (Reason: nausea and vomiting) 14 Days Qty: 14 RF: 0 hydrocodone-acetaminophen [[place]] 5-325 mg tablet 1 tab PO Q6H PRN (Reason: pain) Qty: 14 RF: 0 prednisone 50 mg tablet 50 mg PO DAILY Qty: 5 RF: 0 Discharge Orders: Discharge Order (Routine); Ordered 02/10/20 Ordered By: Michael Adamson Referrals: Fiona Henriquez FNP [Primary Care Provider] - 4-7 days Discharge Diet: Advance as tolerated Patient Instructions: Cholecystitis (ED), Abdominal Pain (ED) Activity Restrictions/Additional Instructions: Return for fever, worsening vomiting or belly pain despite treatment, other concerning symptoms Coding Level of Care Code ED Certified Mortician for Chg Fwd Exam Comprehensive
[2020-02-10 17:13] LABS: Bilirubin Urine Neg (NEGATIVE); Blood Urine Neg (Negative); Glucose Urine UA 1+ (Normal); Ketones Urine 2+ (Negative); Leukocyte Esterase Urine Negative (Negative); Nitrate Urine Negative (Negative); Protein Urine Neg (Negative); Urine Appearance Clear (CLEAR); Urine Color Yellow (Yellow); Urobilinogen Urine Norm (Negative); pH Urine 7 (5-7)
[2020-02-10 17:23] LABS: Alanine Aminotransferase 30 U/L (0-33); Albumin Level 3.6 g/dL (3.5-5.2); Alkaline Phosphatase 253 IU/L (35-105); Anion Gap 17.9 (5-19); Aspartate Amino Transferase 32 U/L (0-32); Blood Urea Nitrogen 7 mg/dL (8-23); C Reactive Protein 0.3 mg/L (0.0-4.9); Calcium 9.5 mg/dL (8.5-10.5); Carbon Dioxide 19 mmol/L (22-29); Chloride 102 mmol/L (98-107); Creatinine Clr Calc Pharmacy 60.2393; Globulin 3.2 g/dL (1.3-4.6); Glucose 174 mg/dL (65-115); Lipase 5 U/L (13-60); Osmolality Calculated 282 mOsm/kg (285-295); Sodium 136 mmol/L (136-145); Total Bilirubin 0.5 mg/dL (0.15-1.2); Total Protein 6.8 g/dL (6.6-8.7)
[2020-02-10 18:05] VITALS: BP 167/73; PULSE 57; RESP 18; TEMP 36.4; O2SAT 98
[2020-02-10 18:07] LABS: Potassium 2.9 mmol/L (3.5-5.1)
--- NOTE | 2020-02-10 18:07 | PC.NURSE ---
Critical lab value Potassium 2.9
[2020-02-10] MEDS: magnesium citrate Btl 296 mL PO (18:19)
[2020-02-10 19:12] LABS: Magnesium 1.8 mg/dL (1.7-2.3)
[2020-02-10 19:28] VITALS: BP 167/73; PULSE 60; RESP 18; O2SAT 99
== END 2020-02-10 19:31 | disposition home or self-care (01) ==
PROVIDERS: Emergency Medicine; Emergency Provider Emergency Medicine; PCP Nurse Practitioner Primary Care
DX: K86.9 Disease of pancreas, unspecified (principal); R10.84 Generalized abdominal pain; K59.01 Slow transit constipation; E03.9 Hypothyroidism, unspecified
CPT/HCPCS: 12345; 36415; 74022; 80053; 81003; 83690; 83735; 85025; 86140; 96365; 96375; 99283; 99284; J1630; J2405; J3010; J3480; J7030

== ENCOUNTER 2020-02-27 11:32 | Emergency (ER) | payer MEDICAID, SELFPAY ==
[2020-02-27 11:39] VITALS: BP 178/115; PULSE 78; RESP 16; TEMP 36.7; O2SAT 100; BMI 24.7
--- NOTE | 2020-02-27 11:42 | W.ED.ABDPA2 ---
HPI - Abdominal Pain General: Chief Complaint: Abdominal Pain Stated Complaint: ABD PAIN Time Seen by Provider: 02/27/20 11:38 Source: patient and EMS Mode of arrival: EMS Limitations: no limitations History of Present Illness: HPI narrative: 74-year-old female has a history of pancreatic cancer and chronic pain from this. Patient states she is had vomiting and has been able to not tolerate her medicines. Denies any fevers. Denies any worsening improving factors. She rates her pain a 7 out of 10. MD elicited complaint: abdominal pain Onset (ago): hour(s) Pain Consistency: constant Location: None Severity: moderate Quality: stabbing Radiation: none Exacerbating factors: nothing Relieving factors: nothing Associated Symptoms: Denies chills, dysuria and fever(s) Review of Systems Const: Denies: fever(s), chills, body aches or change in appetite Eyes: Denies: blurry vision or eye discomfort ENMT: Denies: throat pain or dental pain Card: Denies: chest pain Resp: Denies: dyspnea GI: Reports: abdominal pain : Denies: dysuria Musc: Denies: neck pain or back pain Skin/Breast: Denies: rash Neuro: Denies: headache(s) Psych: Denies: depression Ariel/Lymph: Denies: easy bruising All/Imm: Denies: urticaria PFSH ED PFSH: Medical History (Updated 02/27/20 @ 12:57 by Narendra Yung MD) Hypothyroidism Surgical History History of biliary duct stent placement Family History Other CAD (coronary artery disease) Social History Smoking and tobacco status: never smoked Alcohol intake: never Physical Exam Const: COMMON NORMALS: no acute distress, patient oriented x3 and healthy appearing HENMT: COMMON NORMALS: normocephalic and atraumatic HEAD & SCALP: normocephalic and atraumatic Eye: COMMON NORMALS: Equal, round and reactive pupils present and EOMs intact bilaterally PUPIL: Yes Equal, round and reactive pupils present Neck/C-Spine: COMMON NORMALS: full ROM and supple Chest: COMMONS NORMALS: normal inspection of the chest and normal palpation of entire chest wall Resp: COMMON NORMALS: normal respiratory effort, No retractions, No use of accessory muscles and clear to auscultation bilaterally AUSCULTATION: clear to auscultation bilaterally Cardio: COMMON NORMALS: regular rate, regular rhythm and No murmurs present (Cardio) RATE: regular rate RHYTHM: regular rhythm GI: COMMON NORMALS: Normal to inspection, nondistended, normoactive bowel sounds present, Soft to palpation, non-tender and no masses PALPATION: Yes Soft to palpation Extremity: COMMON NORMALS: normal to inspection and full ROM Neuro: COMMON NORMALS: patient oriented x3, moves all extremities and no focal motor deficits Psych: COMMON NORMALS: mental status grossly normal, Normal thought process present and cooperative THOUGHT PROCESS: Normal thought process present Skin: COMMON NORMALS: no rashes or lesions noted and no wounds GENERAL SKIN EXAM: no rashes or lesions noted Course Vital Signs: Vital signs: Vital Signs Temperature 98.1 F 02/27/20 11:39 Pulse Rate 59 L 02/27/20 13:22 Respiratory Rate 18 02/27/20 13:22 Blood Pressure 149/93 02/27/20 13:22 Pulse Oximetry 98 02/27/20 13:22 MDM - Abdominal Pain MDM Narrative: Medical decision making narrative: Patient presents here with abdominal pain that is chronic in nature. Patient's lab work and exam here is benign. She feels improved after pain meds. Patient is stable for discharge and is return if worsening. Lab Data: Labs: Lab Results 02/27/20 02/27/20 Range/Units 12:22 12:22 WBC 7.1 (4.0-10.0) 10^3/ uL RBC 4.71 (4.1-5.3) 10^6/u L Hgb 12.3 (11.5-15.3) g/dL Hct 38.7 (37.0-47.0) % MCV 82.2 (81-99) fL MCH 26.1 L (28.0-34.0) pg MCHC 31.8 (30.0-36.0) g/dL RDW 14.7 (12.1-15.1) % Plt Count 340 (130-400) 10^3/c mm MPV 9.6 (7.4-10.4) fL Neut % (Auto) 67.9 % Lymph % (Auto) 23.7 % Grainger % (Auto) 6.2 % Eos % (Auto) 1.1 % Baso % (Auto) 0.8 % Neut # (Auto) 4.8 (1.8-7.7) 10^3/u L Lymph # (Auto) 1.7 (0.8-4.8) 10^3/u L Grainger # (Auto) 0.4 (0.2-0.9) 10^3/u L Eos # (Auto) 0.1 (0.0-0.8) 10^3/u L Baso # (Auto) 0.1 (0.0-0.1) 10^3/u L Nucleated RBC % (a uto) 0 % Nucleated RBCs # 0.0 /100WBC Sodium 138 (136-145) mmol/L Potassium 3.0 L (3.5-5.1) mmol/L Chloride 101 (98-107) mmol/L Carbon Dioxide 17 L (22-29) mmol/L Anion Gap 23.0 H (5-19) BUN 9 (8-23) mg/dL Creatinine 0.6 (0.5-0.9) mg/dL Glucose 149 H (65-115) mg/dL Calculated Osmolal ity 285 (285-295) mOsm/k g Calcium 10.2 (8.5-10.5) mg/dL Total Bilirubin 0.8 (0.15-1.2) mg/dL AST 40 H (0-32) U/L ALT 33 (0-33) U/L Alkaline Phosphata se 224 H (35-105) IU/L Total Protein 7.5 (6.6-8.7) g/dL Albumin 4.5 (3.5-5.2) g/dL Globulin 3.0 (1.3-4.6) g/dL Lipase 6 L (13-60) U/L Discharge Plan Discharge Patient Disposition: Home, Self-Care Clinical Impression: Abdominal pain Qualifiers: Abdominal location: generalized Qualified Code(s): R10.84 - Generalized abdominal pain Condition: Stable Prescriptions: No Action cetirizine 10 mg Tablet 10 mg PO DAILY RF: 0 omeprazole 40 mg Capsule,Delayed Release(Dr/Ec) 40 mg PO DAILY RF: 0 levothyroxine 88 mcg Tablet 88 mcg PO DAILY RF: 0 trazodone 150 mg Tablet 150 mg PO BEDTIME PRN (Reason: Sleep) RF: 0 darifenacin [Enablex] 7.5 mg Tablet Extended Release 24 Hr 7.5 mg PO DAILY RF: 0 oxycodone 5 mg Tablet 5 mg PO QID PRN (Reason: Pain) RF: 0 duloxetine 30 mg Capsule,Delayed Release(Dr/Ec) 30 mg PO DAILY RF: 0 tramadol 50 mg Tablet 50 mg PO DAILY 14 Days Qty: 14 RF: 0 hydrocodone-acetaminophen [Pengilly] 5-325 mg tablet 1 tab PO Q6H PRN (Reason: pain) Qty: 14 RF: 0 Discharge Orders: Discharge Order (Routine); Ordered 02/27/20 Ordered By: Narendra Yung Discharge Diet: Advance as tolerated Discharge Activity: Resume usual activity Patient Instructions: Abdominal Pain (ED) Discharge Date/Time: 02/27/20 13:22 Coding Level of Care Code ED Marine Biologist for Ezra Fwd Exam Comprehensive
[2020-02-27 11:45] VITALS: BP 150/116; PULSE 62; RESP 18; O2SAT 100
[2020-02-27 12:30] LABS: Basophils # 0.1 10^3/uL (0.0-0.1); Basophils % 0.8 %; Eosinophils # 0.1 10^3/uL (0.0-0.8); Eosinophils % 1.1 %; Hematocrit 38.7 % (37.0-47.0); Hemoglobin 12.3 g/dL (11.5-15.3); Lymphocytes # 1.7 10^3/uL (0.8-4.8); Lymphocytes % 23.7 %; Mean Corpuscular HGB Conc 31.8 g/dL (30.0-36.0); Mean Corpuscular Hemoglobin 26.1 pg (28.0-34.0); Mean Corpuscular Volume 82.2 fL (81-99); Mean Platelet Volume 9.6 fL (7.4-10.4); Monocytes # 0.4 10^3/uL (0.2-0.9); Monocytes % 6.2 %; Neutrophils # 4.8 10^3/uL (1.8-7.7); Neutrophils % 67.9 %; Nucleated Red Blood Cells % 0 %; Platelet Count 340 10^3/cmm (130-400); Red Blood Count 4.71 10^6/uL (4.1-5.3); Red Cell Distribution Width 14.7 % (12.1-15.1); White Blood Count 7.1 10^3/uL (4.0-10.0)
[2020-02-27 12:45] LABS: Alanine Aminotransferase 33 U/L (0-33); Albumin Level 4.5 g/dL (3.5-5.2); Alkaline Phosphatase 224 IU/L (35-105); Aspartate Amino Transferase 40 U/L (0-32); Blood Urea Nitrogen 9 mg/dL (8-23); Calcium 10.2 mg/dL (8.5-10.5); Carbon Dioxide 17 mmol/L (22-29); Chloride 101 mmol/L (98-107); Glucose 149 mg/dL (65-115); Lipase 6 U/L (13-60); Osmolality Calculated 285 mOsm/kg (285-295); Sodium 138 mmol/L (136-145); Total Bilirubin 0.8 mg/dL (0.15-1.2); Total Protein 7.5 g/dL (6.6-8.7)
[2020-02-27] MEDS: sodium chloride 0.9% 1,000 ML 999 ML IV (12:47)
[2020-02-27] MEDS: metoclopramide 5 mg/mL SDV 2 mL IVP (12:48)
[2020-02-27] MEDS: diphenhydrAMINE 50 mg/mL SDV 1mL 25 MG IVP (12:48)
[2020-02-27 12:49] VITALS: RESP 18; O2SAT 99
[2020-02-27] MEDS: HYDROmorphone 1 mg/mL INJ 1 mL IVP (12:49)
[2020-02-27 12:51] VITALS: BP 189/134; PULSE 56; RESP 16; O2SAT 99
[2020-02-27] MEDS: ondansetron 2 mg/ML SDV 2 mL 4 MG IVP (13:18)
[2020-02-27 13:22] VITALS: BP 149/93; PULSE 59; RESP 18; O2SAT 98
== END 2020-02-27 13:22 | disposition home or self-care (01) ==
PROVIDERS: Emergency Provider Emergency Medicine
DX: R10.84 Generalized abdominal pain (principal)
CPT/HCPCS: 12345; 36415; 80053; 83690; 85025; 96360; 96361; 96374; 96375; 96376; 99282; 99283; J1170; J1200; J2405; J2765; J7030

== ENCOUNTER 2020-02-28 12:59 | Emergency (ER) | payer MEDICAID, SELFPAY ==
[2020-02-28 13:01] VITALS: BP 166/90; PULSE 76; RESP 18; TEMP 36.8; O2SAT 100; BMI 26.5
--- NOTE | 2020-02-28 13:02 | W.ED.ABDPA2 ---
HPI - Abdominal Pain General: Chief Complaint: Nausea/Vomiting/Diarrhea Stated Complaint: N/V Time Seen by Provider: 02/28/20 13:01 Source: patient and EMS Mode of arrival: EMS Limitations: no limitations History of Present Illness: HPI narrative: 74-year-old female who is very well-known to the ER who has a history of pancreatic cancer. She has had no follow-up and states she ran out of her pain meds. States her pain is increased greatly and rates her pain an 8 out of 10. She has had vomiting as well. She denies any worsening or improving factors. MD elicited complaint: abdominal pain Onset (ago): hour(s) Pain Consistency: constant Location: Diffuse Associated Symptoms: Reports nausea and vomiting; Denies chills, dysuria and fever(s) Review of Systems Const: Denies: fever(s), chills, body aches or change in appetite Eyes: Denies: blurry vision or eye discomfort ENMT: Denies: throat pain or dental pain Card: Denies: chest pain Resp: Denies: dyspnea GI: Reports: abdominal pain, nausea and vomiting : Denies: dysuria Musc: Denies: neck pain or back pain Skin/Breast: Denies: rash Neuro: Denies: headache(s) Psych: Denies: depression Ariel/Lymph: Denies: easy bruising All/Imm: Denies: urticaria PFSH ED PFSH: Medical History (Updated 02/28/20 @ 16:06 by Narendra Yung MD) Hypothyroidism Surgical History History of biliary duct stent placement Family History Other CAD (coronary artery disease) Social History Smoking and tobacco status: never smoked Alcohol intake: never Physical Exam Const: COMMON NORMALS: no acute distress, patient oriented x3 and healthy appearing HENMT: COMMON NORMALS: normocephalic and atraumatic HEAD & SCALP: normocephalic and atraumatic Eye: COMMON NORMALS: Equal, round and reactive pupils present and EOMs intact bilaterally PUPIL: Yes Equal, round and reactive pupils present Neck/C-Spine: COMMON NORMALS: full ROM and supple Chest: COMMONS NORMALS: normal inspection of the chest and normal palpation of entire chest wall Resp: COMMON NORMALS: normal respiratory effort, No retractions, No use of accessory muscles and clear to auscultation bilaterally AUSCULTATION: clear to auscultation bilaterally Cardio: COMMON NORMALS: regular rate, regular rhythm and No murmurs present (Cardio) RATE: regular rate RHYTHM: regular rhythm GI: COMMON NORMALS: Normal to inspection, nondistended, normoactive bowel sounds present, Soft to palpation, non-tender and no masses PALPATION: Yes Soft to palpation Extremity: COMMON NORMALS: normal to inspection and full ROM Neuro: COMMON NORMALS: patient oriented x3, moves all extremities and no focal motor deficits Psych: COMMON NORMALS: mental status grossly normal, Normal thought process present and cooperative THOUGHT PROCESS: Normal thought process present Skin: COMMON NORMALS: no rashes or lesions noted and no wounds GENERAL SKIN EXAM: no rashes or lesions noted Course Vital Signs: Vital signs: Vital Signs Temperature 98.2 F 02/28/20 13:01 Pulse Rate 60 02/28/20 15:00 Respiratory Rate 18 02/28/20 16:55 Blood Pressure 165/87 02/28/20 15:00 Pulse Oximetry 95 02/28/20 16:55 MDM - Abdominal Pain MDM Narrative: Medical decision making narrative: Patient presents here with abdominal pain along with vomiting that is chronic in nature. Patient missed her oncology appointment again. I had salvage engineering technician set up appointment for the and will get her a ride as well she states she was not able to get a ride today. Patient's oxycodone were refilled. Patient stable for discharge and return if worsening. Lab Data: Labs: Lab Results 02/28/20 02/28/20 Range/Units 13:48 13:48 WBC 6.4 (4.0-10.0) 10^3/ uL RBC 4.46 (4.1-5.3) 10^6/u L Hgb 11.6 (11.5-15.3) g/dL Hct 35.7 L (37.0-47.0) % MCV 80.0 L (81-99) fL MCH 26.0 L (28.0-34.0) pg MCHC 32.5 (30.0-36.0) g/dL RDW 14.6 (12.1-15.1) % Plt Count 302 (130-400) 10^3/c mm MPV 9.4 (7.4-10.4) fL Neut % (Auto) 61.2 % Lymph % (Auto) 28.8 % Kaufman % (Auto) 7.2 % Eos % (Auto) 1.6 % Baso % (Auto) 0.9 % Neut # (Auto) 3.9 (1.8-7.7) 10^3/u L Lymph # (Auto) 1.8 (0.8-4.8) 10^3/u L Kaufman # (Auto) 0.5 (0.2-0.9) 10^3/u L Eos # (Auto) 0.1 (0.0-0.8) 10^3/u L Baso # (Auto) 0.1 (0.0-0.1) 10^3/u L Nucleated RBC % (a uto) 0 % Nucleated RBCs # 0.0 /100WBC Sodium 135 L (136-145) mmol/L Potassium 3.1 L (3.5-5.1) mmol/L Chloride 101 (98-107) mmol/L Carbon Dioxide 17 L (22-29) mmol/L Anion Gap 20.1 H (5-19) BUN 10 (8-23) mg/dL Creatinine 0.5 (0.5-0.9) mg/dL Glucose 138 H (65-115) mg/dL Calculated Osmolal ity 278 L (285-295) mOsm/k g Calcium 9.5 (8.5-10.5) mg/dL Total Bilirubin 0.7 (0.15-1.2) mg/dL AST 40 H (0-32) U/L ALT 33 (0-33) U/L Alkaline Phosphata se 207 H (35-105) IU/L Total Protein 7.4 (6.6-8.7) g/dL Albumin 4.0 (3.5-5.2) g/dL Globulin 3.4 (1.3-4.6) g/dL Lipase 5 L (13-60) U/L Discharge Plan Discharge Patient Disposition: Home, Self-Care Clinical Impression: Pancreatic mass Abdominal pain Qualifiers: Abdominal location: generalized Qualified Code(s): R10.84 - Generalized abdominal pain Condition: Stable Prescriptions: New oxycodone 10 mg tablet 10 mg PO Q8H PRN (Reason: pain) Qty: 20 RF: 0 ondansetron 4 mg tablet,disintegrating 4 mg PO Q6H PRN (Reason: nausea and vomiting) Qty: 14 RF: 0 No Action cetirizine 10 mg Tablet 10 mg PO DAILY RF: 0 omeprazole 40 mg Capsule,Delayed Release(Dr/Ec) 40 mg PO DAILY RF: 0 levothyroxine 88 mcg Tablet 88 mcg PO DAILY RF: 0 trazodone 150 mg Tablet 150 mg PO BEDTIME PRN (Reason: Sleep) RF: 0 darifenacin [Enablex] 7.5 mg Tablet Extended Release 24 Hr 7.5 mg PO DAILY RF: 0 oxycodone 5 mg Tablet 5 mg PO QID PRN (Reason: Pain) RF: 0 duloxetine 30 mg Capsule,Delayed Release(Dr/Ec) 30 mg PO DAILY RF: 0 tramadol 50 mg Tablet 50 mg PO DAILY 14 Days Qty: 14 RF: 0 hydrocodone-acetaminophen [Bow] 5-325 mg tablet 1 tab PO Q6H PRN (Reason: pain) Qty: 14 RF: 0 Discharge Orders: Discharge Order (Routine); Ordered 02/28/20 Ordered By: Narendra Yung Referrals: Gurinder Malone MD [Staff Physician] - 03/04/20 1:30 pm Discharge Diet: Advance as tolerated Discharge Activity: Resume usual activity Patient Instructions: Abdominal Pain (ED) Coding Level of Care Code ED Medical Imaging Director for g Fwd Exam Comprehensive
[2020-02-28 13:54] LABS: Basophils # 0.1 10^3/uL (0.0-0.1); Basophils % 0.9 %; Eosinophils # 0.1 10^3/uL (0.0-0.8); Eosinophils % 1.6 %; Hematocrit 35.7 % (37.0-47.0); Hemoglobin 11.6 g/dL (11.5-15.3); Lymphocytes # 1.8 10^3/uL (0.8-4.8); Lymphocytes % 28.8 %; Mean Corpuscular HGB Conc 32.5 g/dL (30.0-36.0); Mean Platelet Volume 9.4 fL (7.4-10.4); Monocytes # 0.5 10^3/uL (0.2-0.9); Monocytes % 7.2 %; Neutrophils # 3.9 10^3/uL (1.8-7.7); Neutrophils % 61.2 %; Nucleated Red Blood Cells % 0 %; Platelet Count 302 10^3/cmm (130-400); Red Blood Count 4.46 10^6/uL (4.1-5.3); Red Cell Distribution Width 14.6 % (12.1-15.1); White Blood Count 6.4 10^3/uL (4.0-10.0)
--- NOTE | 2020-02-28 13:54 | DCPLANNER ---
Addendum entered by Rachel Rivera 02/28/20 14:20: Yuly from oncology called family caseworker and stated that an appointment was scheduled for Wednesday, March 04, 2020 at 1:[address] Malone. network project manager informed ED physician and patient of the scheduled appointment and that Yuly will arrange for transportation to the appointment with medicaid. Original Note: network project manager was asked to see when patients appointment was at the [facility]. network project manager called Vonda, after school coordinator at the [facility]. network project manager was told that patient had an appointment scheduled for today with Dr. Malone. network project manager told Vonda that patient was in the ER at this time, and asked if that appointment could be cancelled. network project manager was told that another appointment would be scheduled and that transportation will be arranged for patient. network project manager informed patient and ED physician of this.
[2020-02-28] MEDS: sodium chloride 0.9% 1,000 ML 999 ML IV (14:33)
[2020-02-28 14:35] VITALS: RESP 18; O2SAT 100
[2020-02-28] MEDS: diphenhydrAMINE 50 mg/mL SDV 1mL IVP (14:35)
[2020-02-28] MEDS: HYDROmorphone 1 mg/mL INJ 1 mL 2 MG IVP (14:35)
[2020-02-28] MEDS: metoclopramide 5 mg/mL SDV 2 mL 10 MG IVP (14:35)
[2020-02-28 14:37] LABS: Alanine Aminotransferase 33 U/L (0-33); Alkaline Phosphatase 207 IU/L (35-105); Anion Gap 20.1 (5-19); Aspartate Amino Transferase 40 U/L (0-32); Blood Urea Nitrogen 10 mg/dL (8-23); Calcium 9.5 mg/dL (8.5-10.5); Carbon Dioxide 17 mmol/L (22-29); Chloride 101 mmol/L (98-107); Creatinine Clr Calc Pharmacy 57.1281; Globulin 3.4 g/dL (1.3-4.6); Glucose 138 mg/dL (65-115); Lipase 5 U/L (13-60); Osmolality Calculated 278 mOsm/kg (285-295); Potassium 3.1 mmol/L (3.5-5.1); Sodium 135 mmol/L (136-145); Total Bilirubin 0.7 mg/dL (0.15-1.2); Total Protein 7.4 g/dL (6.6-8.7)
[2020-02-28 15:00] VITALS: BP 165/87; PULSE 60; RESP 18; O2SAT 99
[2020-02-28 16:55] VITALS: RESP 18; O2SAT 95
[2020-02-28] MEDS: HYDROmorphone 1 mg/mL INJ 1 mL IM (16:55)
[2020-02-28 17:04] VITALS: BP 112/62; PULSE 66; RESP 18; O2SAT 99
== END 2020-02-28 17:04 | disposition home or self-care (01) ==
PROVIDERS: Emergency Provider Emergency Medicine
DX: R10.84 Generalized abdominal pain (principal); K86.9 Disease of pancreas, unspecified
CPT/HCPCS: 12345; 80053; 83690; 85025; 96360; 96361; 96372; 96374; 96375; 96376; 99283; J1170; J1200; J2765; J7030

== ENCOUNTER 2020-03-01 12:33 | Observation (INO) | payer MEDICAID, SELFPAY ==
[2020-03-01] VITALS (10 sets, daily range): BP systolic 95–194; BP diastolic 54–126; PULSE 58–80; RESP 16–20; TEMP 36.8–37.1; O2SAT 89–100; BMI 24.1
--- NOTE | 2020-03-01 12:49 | W.ED.ABDPA2 ---
HPI - Abdominal Pain General: Chief Complaint: Abdominal Pain Stated Complaint: abd pain/N/V Time Seen by Provider: 03/01/20 12:49 History of Present Illness: HPI narrative: 70 for a female known history of pancreatic cancer she has been in twice this week once because she she was out of medications for pain meds not tolerating food or fluids well she had nausea vomiting to the point she had her medicines refilled given fluids and was feeling better and discharged home to return again 2 days later again having persistent nausea and vomiting she returns today with same complaint. She has previously had a resection of her pancreatic cancer but she has not yet begun treatment for her cancer. She is not had any hematochezia melena hematemesis or coffee-ground emesis but does undergo uncontrollable nausea vomiting and pain throughout the week. After some IV fluids and pain and antiemetics she has persistent pain and nausea. Associated Symptoms: Reports bloating, nausea and vomiting; Denies chills, coffee ground emesis, constipation, diarrhea, dysuria, fever(s), hematochezia, hematemesis and melena Review of Systems Const: Denies: fever(s), chills, body aches, change in appetite, fatigue or malaise ENMT: Denies: throat pain, ear or mastoid pain, nasal discharge or nasal congestion Card: Denies: chest pain, edema, dyspnea on exertion or orthopnea Resp: Denies: dyspnea, productive cough or non-productive cough GI: Reports: abdominal pain, nausea, vomiting and bloating; Denies: hematemesis, coffee ground emesis, diarrhea, constipation, hematochezia or melena : Denies: flank pain, difficulty voiding, dysuria, urinary frequency or urinary urgency Skin/Breast: Denies: rash or pruritus PFSH ED PFSH: Medical History (Updated 03/04/20 @ 06:49 by Gutierrez Gusman DO) Hypothyroidism Pancreatic cancer Pancreatic mass Surgical History (Updated 03/04/20 @ 06:49 by Gutierrez Gusman DO) H/O resection of pancreas History of biliary duct stent placement Family History Other CAD (coronary artery disease) Social History (Updated 03/01/20 @ 18:03 by Josh Horta MD) Smoking and tobacco status: never smoked Alcohol intake: never Substance/Drug Use: never Physical Exam Const: COMMON NORMALS: no acute distress GENERAL APPEARANCE: cooperative and comfortable ORIENTATION/CONSCIOUSNESS: Yes awake, Yes oriented to person, Yes oriented to place and Yes oriented to time HENMT: COMMON NORMALS: normocephalic, atraumatic, hearing grossly normal bilaterally, external ears normal, EAC's normal, TM's normal bilaterally, Normal nasal mucous membranes and turbinates present, moist oral mucous membranes and oropharynx normal HEAD & SCALP: normocephalic and atraumatic NOSE: Normal nasal mucous membranes and turbinates present EXTERNAL EAR: Yes external ears normal EXTERNAL AUDITORY CANAL: EAC's normal TYMPANIC MEMBRANE: TM's normal bilaterally Eye: COMMON NORMALS: Equal, round and reactive pupils present, EOMs intact bilaterally, conjunctivae normal and no scleral icterus CONJUNCTIVA: Yes conjunctivae normal PUPIL: Yes Equal, round and reactive pupils present Neck/C-Spine: COMMON NORMALS: full ROM, no lymphadenopathy, supple and no JVD Lymph: LYMPHATIC: no lymphadenopathy noted and no lymphedema noted Resp: COMMON NORMALS: normal respiratory effort, No retractions, No use of accessory muscles and clear to auscultation bilaterally AUSCULTATION: clear to auscultation bilaterally Cardio: COMMON NORMALS: no JVD, regular rate, regular rhythm and No murmurs present (Cardio) RATE: regular rate RHYTHM: regular rhythm GI: COMMON NORMALS: Soft to palpation and No hepatosplenomegaly present AUSCULTATION: Yes normoactive bowel sounds PALPATION: Yes Soft to palpation, Yes Tenderness to palpation present (GI) (Diffuse), No Guarding due to palpation present (GI) and Yes No hepatosplenomegaly present Extremity: COMMON NORMALS: normal to inspection, capillary refill normal, no clubbing, cyanosis or edema, no calf tenderness and no pedal edema Neuro: SENSORIUM/ORIENTATION: Yes oriented to person, Yes oriented to place and Yes oriented to time Skin: COMMON NORMALS: no rashes or lesions noted GENERAL SKIN EXAM: no rashes or lesions noted Course Vital Signs: Vital signs: Vital Signs Temperature 97.9 F 03/03/20 12:25 Pulse Rate 69 03/03/20 12:25 Respiratory Rate 16 03/03/20 12:25 Blood Pressure 138/91 03/03/20 12:25 Pulse Oximetry 97 03/03/20 12:25 MDM - Abdominal Pain MDM Narrative: Medical decision making narrative: This patient's third visit to the ER this week with persistent nausea and vomiting and pain from her pancreatic cancer. She has a history of a biliary duct stent placement ultrasound confirms as well as labs that there is no evidence of obstruction at this point will go ahead and admit her for IV fluids pain control and nausea. I have discussed with Dr. Mcdowell. Lab Data: Labs: Lab Results 03/01/20 03/01/20 03/01/20 Range/Units 13:23 13:23 13:23 WBC (4.0-10.0) 10^3/ uL RBC (4.1-5.3) 10^6/u L Hgb (11.5-15.3) g/dL Hct (37.0-47.0) % MCV (81-99) fL MCH (28.0-34.0) pg MCHC (30.0-36.0) g/dL RDW (12.1-15.1) % Plt Count (130-400) 10^3/c mm MPV (7.4-10.4) fL Neut % (Auto) % Lymph % (Auto) % Borden % (Auto) % Eos % (Auto) % Baso % (Auto) % Neut # (Auto) (1.8-7.7) 10^3/u L Lymph # (Auto) (0.8-4.8) 10^3/u L Borden # (Auto) (0.2-0.9) 10^3/u L Eos # (Auto) (0.0-0.8) 10^3/u L Baso # (Auto) (0.0-0.1) 10^3/u L Nucleated RBC % (a uto) % Nucleated RBCs # /100WBC Sodium 135 L (136-145) mmol/L Potassium 3.3 L (3.5-5.1) mmol/L Chloride 101 (98-107) mmol/L Carbon Dioxide 15 L (22-29) mmol/L Anion Gap 22.3 H (5-19) BUN 14 (8-23) mg/dL Creatinine 0.6 (0.5-0.9) mg/dL Glucose 132 H (65-115) mg/dL Calculated Osmolal ity 278 L (285-295) mOsm/k g Lactate 1.2 (0.5-2.2) mmol/L Calcium 9.3 (8.5-10.5) mg/dL Phosphorus 3.0 (2.5-4.5) mg/dL Magnesium 2.0 (1.7-2.3) mg/dL Total Bilirubin 0.6 (0.15-1.2) mg/dL AST 49 H (0-32) U/L ALT 37 H (0-33) U/L Alkaline Phosphata se 203 H (35-105) IU/L Total Protein 7.1 (6.6-8.7) g/dL Albumin 3.7 (3.5-5.2) g/dL Globulin 3.4 (1.3-4.6) g/dL Lipase 5 L (13-60) U/L Urine Color (Yellow) Urine Appearance (CLEAR) Urine pH (5-7) Ur Specific Gravit y (1.005-1.030) Urine Protein (Negative) Urine Glucose (UA) (Normal) Urine Ketones (Negative) Urine Blood (Negative) Urine Nitrate (Negative) Urine Bilirubin (NEGATIVE) Urine Urobilinogen (Negative) mg/dL Ur Leukocyte Stephanie ase (Negative) Urine Opiates Scre en (Negative) ng/mL Ur Barbiturates Sc reen (Negative) ng/mL Ur Phencyclidine S crn (Negative) ng/mL Ur Amphetamines Sc reen (Negative) ng/mL U Benzodiazepines Scrn (Negative) ng/mL Urine Cocaine Scre en (Negative) ng/mL U Marijuana (THC) Screen (Negative) ng/mL 03/01/20 03/01/20 03/01/20 Range/Units 13:42 14:17 14:17 WBC 7.2 (4.0-10.0) 10^3/ uL RBC 4.73 (4.1-5.3) 10^6/u L Hgb 12.4 (11.5-15.3) g/dL Hct 39.3 (37.0-47.0) % MCV 83.1 (81-99) fL MCH 26.2 L (28.0-34.0) pg MCHC 31.6 (30.0-36.0) g/dL RDW 14.6 (12.1-15.1) % Plt Count 351 (130-400) 10^3/c mm MPV 9.5 (7.4-10.4) fL Neut % (Auto) 61.9 % Lymph % (Auto) 28.6 % Borden % (Auto) 6.6 % Eos % (Auto) 1.5 % Baso % (Auto) 1.1 % Neut # (Auto) 4.4 (1.8-7.7) 10^3/u L Lymph # (Auto) 2.1 (0.8-4.8) 10^3/u L Borden # (Auto) 0.5 (0.2-0.9) 10^3/u L Eos # (Auto) 0.1 (0.0-0.8) 10^3/u L Baso # (Auto) 0.1 (0.0-0.1) 10^3/u L Nucleated RBC % (a uto) 0 % Nucleated RBCs # 0.0 /100WBC Sodium (136-145) mmol/L Potassium (3.5-5.1) mmol/L Chloride (98-107) mmol/L Carbon Dioxide (22-29) mmol/L Anion Gap (5-19) BUN (8-23) mg/dL Creatinine (0.5-0.9) mg/dL Glucose (65-115) mg/dL Calculated Osmolal ity (285-295) mOsm/k g Lactate (0.5-2.2) mmol/L Calcium (8.5-10.5) mg/dL Phosphorus (2.5-4.5) mg/dL Magnesium (1.7-2.3) mg/dL Total Bilirubin (0.15-1.2) mg/dL AST (0-32) U/L ALT (0-33) U/L Alkaline Phosphata se (35-105) IU/L Total Protein (6.6-8.7) g/dL Albumin (3.5-5.2) g/dL Globulin (1.3-4.6) g/dL Lipase (13-60) U/L Urine Color Yellow (Yellow) Urine Appearance Clear (CLEAR) Urine pH 7.0 (5-7) Ur Specific Gravit y 1.005 (1.005-1.030) Urine Protein Neg (Negative) Urine Glucose (UA) Norm (Normal) Urine Ketones 1+ H (Negative) Urine Blood Neg (Negative) Urine Nitrate Negative (Negative) Urine Bilirubin Neg (NEGATIVE) Urine Urobilinogen Norm (Negative) mg/dL Ur Leukocyte Stephanie ase Negative (Negative) Urine Opiates Scre en Positive H (Negative) ng/mL Ur Barbiturates Sc reen Negative (Negative) ng/mL Ur Phencyclidine S crn Negative (Negative) ng/mL Ur Amphetamines Sc reen Negative (Negative) ng/mL U Benzodiazepines Scrn Negative (Negative) ng/mL Urine Cocaine Scre en Negative (Negative) ng/mL U Marijuana (THC) Screen Positive H (Negative) ng/mL Discharge Plan Discharge Patient Disposition: Admitted As Inpatient Admit Provider: Josh Horta Clinical Impression: Pancreatic cancer, History of biliary duct stent placement, Abdominal pain, Vomiting Condition: Stable Discharge Orders: Discharge Order (Routine); Ordered 03/03/20 Ordered By: Josh Horta Referrals: Gurinder Malone MD [Staff Physician] - (Please keep your appointment tomorrow with Dr. Malone) Discharge Diet: GI Soft Discharge Activity: Resume usual activity Patient Instructions: Sucralfate (By mouth), Pancrelipase (By mouth), Acute Nausea and Vomiting (GEN) Additional Instructions: Please keep small frequent meals during the day. Please try to avoid eating food too fast. With your Whipple's procedure now you should be on GI soft bland diet at least for 2 weeks and then advance gradually as tolerated. Please follow-up with your oncologist on the set appointment for commencement of chemotherapy. Interventions: ED Discharge Assessment Last Done: 03/01/20 18:16 ED Charges Last Done: 03/01/20 18:16 Discharge Date/Time: 03/01/20 18:18 Coding Level of Care Code ED Fpga Design Engineer for Latoyag Fwd Exam Comprehensive
--- NOTE | 2020-03-01 12:52 | CT_ITS ---
WS: [id number] CT abdomen pelvis w con* [id number] REASON FOR EXAM: abd pain IV CONTRAST ADMINISTERED: Omnipaque 300, 95 mL TOTAL EXAM DLP: 560.[address] scans at [facility] use at least one of these dose optimization techniques: automat ed exposure control; mA and/or kV adjustment per patient size (includes targeted exams where dose is matched to clinical indication); or iterative reconstruction. FINDINGS: Small hiatal hernia. The lower lung mendosa and mediastinum were normal. Groundglass nodules not well seen in either lung f ield. Fatty infiltration of the liver. Hepatomegaly is seen. Early aneurysmal changes of the proximal abdominal aorta measured 4.15 cm. The left adrenal gland is enlarged measured 3.75 cm. The pancreas was normal. The stomach and spleen were normal. Both kidneys show normal size and configuration. No masses are noted. The right colon show normal appearance. Previous exam suggest enlargement of the head of the pancreas is is not observed today. The scoliotic curve is again seen. In the left: There is no diverticulosis or diverticulitis. The urinary bladder was somewhat collapsed. Hysterectomy is noted. The ovaries are not observed. The bony pelvis and lumbar spine show at the L2-3 level loss of the disc space suggesting degenerate disc changes. CT/CT abdomen pelvis w con* [id number] IMPRESSION: Small hiatal hernia Fatty infiltration of the liver The head of the pancreas shows no enlargement today Degenerated changes of the disc spaces L2-3 early aneurysmal changes of the upp er abdominal aorta.
[2020-03-01] MEDS: sodium chloride 0.9% 500 ML 999 ML IV (13:09)
[2020-03-01] MEDS: ondansetron 2 mg/ML SDV 2 mL 4 MG IVP (13:11)
[2020-03-01 13:48] LABS: Basophils # 0.1 10^3/uL (0.0-0.1); Basophils % 1.1 %; Eosinophils # 0.1 10^3/uL (0.0-0.8); Eosinophils % 1.5 %; Hematocrit 39.3 % (37.0-47.0); Hemoglobin 12.4 g/dL (11.5-15.3); Lymphocytes # 2.1 10^3/uL (0.8-4.8); Lymphocytes % 28.6 %; Mean Corpuscular HGB Conc 31.6 g/dL (30.0-36.0); Mean Corpuscular Hemoglobin 26.2 pg (28.0-34.0); Mean Corpuscular Volume 83.1 fL (81-99); Mean Platelet Volume 9.5 fL (7.4-10.4); Monocytes # 0.5 10^3/uL (0.2-0.9); Monocytes % 6.6 %; Neutrophils # 4.4 10^3/uL (1.8-7.7); Neutrophils % 61.9 %; Nucleated Red Blood Cells % 0 %; Platelet Count 351 10^3/cmm (130-400); Red Blood Count 4.73 10^6/uL (4.1-5.3); Red Cell Distribution Width 14.6 % (12.1-15.1); White Blood Count 7.2 10^3/uL (4.0-10.0)
[2020-03-01] MEDS: iohexol 300 mg/mL 100 mL Btl IV (13:52)
[2020-03-01 13:53] LABS: Lactate (Lactic Acid level) 1.2 mmol/L (0.5-2.2)
[2020-03-01 13:54] LABS: Alanine Aminotransferase 37 U/L (0-33); Albumin Level 3.7 g/dL (3.5-5.2); Alkaline Phosphatase 203 IU/L (35-105); Anion Gap 22.3 (5-19); Blood Urea Nitrogen 14 mg/dL (8-23); Calcium 9.3 mg/dL (8.5-10.5); Carbon Dioxide 15 mmol/L (22-29); Chloride 101 mmol/L (98-107); Creatinine Clr Calc Pharmacy 58.9327; Globulin 3.4 g/dL (1.3-4.6); Glucose 132 mg/dL (65-115); Lipase 5 U/L (13-60); Osmolality Calculated 278 mOsm/kg (285-295); Potassium 3.3 mmol/L (3.5-5.1); Sodium 135 mmol/L (136-145); Total Bilirubin 0.6 mg/dL (0.15-1.2); Total Protein 7.1 g/dL (6.6-8.7)
[2020-03-01 13:55] LABS: Aspartate Amino Transferase 49 U/L (0-32)
[2020-03-01] MEDS: LORazepam 2 mg/mL INJ 1 mL 0.5 MG IVP (14:28)
[2020-03-01] MEDS: HYDROmorphone 1 mg/mL INJ 1 mL IVP (14:28)
[2020-03-01] MEDS: metoclopramide 5 mg/mL SDV 2 mL 10 MG IVP (14:28)
[2020-03-01 14:35] LABS: Add Urine Microscopic? NO
[2020-03-01 14:46] LABS: Urine Appearance Clear (CLEAR); Urine Color Yellow (Yellow)
[2020-03-01 14:47] LABS: Bilirubin Urine Neg (NEGATIVE); Blood Urine Neg (Negative); Glucose Urine UA Norm (Normal); Ketones Urine 1+ (Negative); Leukocyte Esterase Urine Negative (Negative); Nitrate Urine Negative (Negative); Protein Urine Neg (Negative); Specific Gravity, Urine 1.005 (1.005-1.030); Urobilinogen Urine Norm (Negative)
--- NOTE | 2020-03-01 15:05 | PC.NURSE ---
Pt was placed on 2L nasal cannula due to low oxygen saturation after administration of pain medication.
--- NOTE | 2020-03-01 16:10 | USR_ITS ---
PROCEDURE INFORMATION: Exam: US Abdomen Limited, Right Upper Quadrant Exam date and time: 03/01/2020 5:11 PM Age: 74 years old Clinical indication: Abdominal pain; Acute; Prior surgery; Surgery date: 1-6 months; Surgery type: Panc cancer; Patient HX: Gb removed recent surg for panc CA; Additional info: Jaret lea dile duct for dilation TECHNIQUE: Imaging protocol: Real-time ultrasound of the abdomen with image documentation. Examination was focused on the right upper quadrant. COMPARISON: CR (ABDOMEN, ) 02/10/2020 4:53 PM FINDINGS: Liver: There is diffuse increased echogenicity of the liver with attenuation of the ultrasound beam compatible with diffuse infiltrative process including fatty infiltration or cirrhosis. The liver is enlarged and measures 17.9 cm in length. Gallbladder: There has been a cholecystectomy. There is a negative sonographic Knott's sign. Common bile duct: The common bile duct measurement is within normal limits measuring 6.4 mm. There is an echogenic structure in the common bile duct that is presumed to be a common bile duct stent. Pancreas: Pancreas is obscured by bowel gas artifact. No perinephric fluid. Right kidney: There is mild to moderate dilatation of the right kidney renal pelvis . There is dilatation of the right renal pelvis but no dilatation of the calices or right ureter is identified. This may reflect an extrarenal pelvis or mild hydronephrosis. The right kidney is 10.9 cm in length. The dilated right renal pelvis measures 1.5 cm. Echotexture of the right kidney is appropriate. No definite stones. Aorta: Moderate atherosclerotic changes are noted in the aorta. Transverse measurement of the abdominal aorta is 2.1 x 2.8 cm in size. US/US gall bladder [id number] IMPRESSION: 1. Echogenic liver compatible probable fatty infiltration. There is hepatomegaly. 2. Postoperative cholecystectomy. No duct dilatation. There is a probable stent in the common bile duct. 3. There is mild to moderate dilatation of the right kidney with dilatation of the right renal pelvis but no dilatation of the right ureter is identified. This could be an extrarenal pelvis or very mild hydronephrosis.
[2020-03-01] MEDS: sodium chloride 0.9% 1,000 ML 999 ML IV (16:42)
--- NOTE | 2020-03-01 17:28 | PM.HP ---
Providers/Chief Complaint Chief Complaint: abd pain/N/V History of Present Illness Amada Metz is a 74 year old female with a past medical history of pancreatic head mass status post biliary stent placement in [facility] September 2019, pancreatic mass resection in December 2019, hypothyroidism, who apparently was admitted at [facility] till February 06 for around 2 weeks with complaint of nausea and vomiting. Patient is not really aware of what was done at [facility] during that admission. She presents to the emergency room due to complaints of nausea, vomiting, abdominal pain on and off since her discharge getting acutely worse this week. This is her third visit to the ER in this week. She states sometime when she eats she is okay but sometimes when she eats she feels really nauseous and vomits. Vomiting is mostly what she eats, sometimes bilious, not foul-smelling or blood-tinged. Last she ate was yesterday. Today she had bilious vomiting and she vomited what she ate yesterday. Vomiting was preceded by abdominal pain. She denies of having any constipation, diarrhea, fevers, sick contacts, food poisoning, dysuria. She complains of feeling weak. In ER her hemoglobin was 12.4, white count of 7.2, sodium was 135, potassium of 3.3, BUN of 14, AST/ALT of 49/37 and alkaline phosphatase of 203 which has been getting progressively worsened since her 3 visits in the ER this week urinalysis was negative for nitrites or leukoesterase. CT abdomen pelvis was done which showed small hiatal hernia, infiltration of the liver. Review of Systems Const: Denies: fever(s), chills, body aches, change in appetite, malaise, night sweats, diaphoresis, change in sleep pattern, daytime sleepiness or snoring Eyes: Denies: change in vision, blurry vision, photophobia, eye discomfort or eye discharge ENMT: Denies: throat pain, enlarged tonsils, hoarseness, mouth pain, oral sores, dry mouth, tinnitus, nasal congestion or post nasal drip Card: Denies: chest pain, palpitations, irregular heart rhythm, edema, swelling of feet/ankles, lightheadedness, syncope, pre-syncope, dyspnea on exertion, orthopnea, leg pain with exertion or acrocyanosis Resp: Denies: dyspnea, productive cough, non-productive cough, wheezing, stridor, pain on inspiration, change in phlegm color, hemoptysis or chest congestion GI: Reports: abdominal pain, nausea and vomiting; Denies: hematemesis, coffee ground emesis, dysphagia, heartburn, diarrhea, constipation, bloating, GI cramping, change in bowel habits, pain on defecation, hematochezia or melena : Denies: flank pain, dysuria, urinary frequency, urinary urgency, urinary hesitancy, nocturia or hematuria Musc: Denies: neck pain, back pain, extremity pain, joint pain, joint swelling, joint redness, joint stiffness or limited range of motion Neuro: Denies: headache(s), numbness in extremities, weakness in extremities, sensory changes, lack of coordination, difficulty walking, frequent falls, dizziness, vertigo, confusion, Slurred speech present, difficulty communicating thoughts or seizure-like activity Psych: Denies: anxiety, depression, mood swings, panic attacks, hopelessness or irritability Endo: Denies: polyuria, polydipsia, tired all the time, cold intolerance, excessive sweating, flushing or heat intolerance Ariel/Lymph: Denies: easy bruising or easy bleeding All/Imm: Denies: tongue swelling, facial swelling or acute wheezing Medications/Allergies Home Medications Medication Instructions Recorded Confirmed Last Taken Type cetirizine 10 mg PO DAILY 09/25/19 03/01/20 02/28/20 History levothyroxine 88 mcg PO DAILY 09/25/19 03/01/20 02/28/20 History omeprazole 40 mg PO DAILY 09/25/19 03/01/20 02/28/20 History trazodone 150 mg PO BEDTIME PRN 09/25/19 03/01/20 02/27/20 History tramadol 50 mg PO DAILY 14 Days #14 tab 11/12/19 03/01/20 02/27/20 Rx duloxetine 30 mg PO DAILY 02/27/20 03/01/20 02/28/20 History ondansetron 4 mg PO Q6H PRN #14 tab 02/28/20 03/01/20 Unknown Rx oxycodone 10 mg PO Q8H PRN #20 tab 02/28/20 03/01/20 Unknown Rx Allergies Allergy/AdvReac Type Severity Reaction Status Date / Time gabapentin Allergy Unknown Verified 02/27/20 11:45 morphine Allergy Unknown Verified 02/27/20 11:45 pregabalin [From Lyrica] Allergy Unknown Verified 02/27/20 11:45 PFSH Acute PFSH: Medical History (Updated 03/01/20 @ 18:03 by Josh Horta MD) Hypothyroidism Pancreatic cancer Pancreatic mass Surgical History H/O resection of pancreas History of biliary duct stent placement Family History Other CAD (coronary artery disease) Social History (Updated 03/01/20 @ 18:03 by Josh Horta MD) Smoking and tobacco status: never smoked Alcohol intake: never Substance/Drug Use: never Vitals/I&O/Wt Last Vital Signs Temp 98.8 F 03/01/20 12:29 Pulse 72 03/01/20 17:08 Resp 20 H 03/01/20 17:08 BP 121/83 03/01/20 17:08 Pulse Ox 94 03/01/20 17:08 03/01/20 03/01/20 03/01/20 06:59 14:59 22:59 Intake Total 500 / 500 Balance 500 / 500 Weight last 48 hrs Weight 65.771 kg Physical Exam Narrative: EXAM NARRATIVE: General: No acute distress, AO x3, dehydrated, frail HEENT: PERRLA, pupils bilaterally equal and reactive Chest: Normal vesicular breath sounds, no added sounds, equal good air entry bilaterally CVS: S1-S2 regular, no murmurs, no tachycardia, no gallops, no rubs Abdomen: Soft, gastric area and right upper quadrant, mass felt in right upper quadrant, no rebound, bowel sounds present Neuro: No focal deficits, no facial deformity, AO x3, power 5/5 in all limbs Data : 03/01/20 13:42 03/01/20 13:23 A&P Assessment and plan (1) Vomiting: Status: Acute (2) Abdominal pain: Status: Acute Qualifiers: Abdominal location: generalized Qualified Code(s): R10.84 - Generalized abdominal pain (3) Pancreatic cancer: Status: Acute (4) History of biliary duct stent placement: Status: Acute (5) Hypothyroidism: Status: Acute Additional A&P Information Vomiting abdominal pain: History of pancreatic mass resected in December with biliary duct stent placed in September 2019. Patient is due for chemotherapy this Wednesday. Patient does not have any fever, leukocytosis, no colitis or SBO on CT scan. Given her history concern for stent obstruction given worsening alkaline phosphatase, AST/ALT. We will request for gallbladder ultrasound and MRCP. Check lactate, urine drug screen. Clear liquid diet Zofran and promethazine for vomiting as needed. Continue pain medications at home dose. She takes oxycodone 10 mg every 8 hourly as needed. Patient does not have any leukocytosis, infiltrate on chest x-ray, intra-abdominal collection on CT scan, UA is normal as well without any dysuria we will hold off on any antibiotics for now. Check iron panel, TSH, lipid panel, HbA1c. Hypothyroidism: Continue home dose of levothyroxine. Continue home dose of duloxetine, trazodone. We will request documents from [facility] regarding her recent hospitalization. Full code. Clear liquid diet, advance as tolerated. SCDs, Heparin 5000 every 12 for DVT prophylaxis Attestations Medical Necessity Statement*: Admission for less than 2 midnights for intractable vomiting Coding Level of Care Code Acute Sr. Unix System Administrator for Chg Fwd Diagnoses Vomiting R11.10 Abdominal pain R10.84 Abdominal location: generalized Pancreatic cancer C25.9 History of biliary duct stent placement Z98.890 Hypothyroidism E03.9
--- NOTE | 2020-03-01 18:06 | MRR_ITS ---
PROCEDURE INFORMATION: Exam: MR Abdomen Without Contrast Exam date and time: 03/01/2020 6:07 PM Age: 74 years old Clinical indication: Abdominal pain; Prior surgery; Surgery date: 6+ months; Surgery type: Gb. Mass removed from pancreas; Patient HX: HX of pancreatic cancer; Additional info: H/o biliary duct stent, R/O obstruction TECHNIQUE: Imaging protocol: MR of the abdomen without contrast. COMPARISON: US gall bladder [id number] 03/01/2020 4:[address] abdomen pelvis wo con [id number] 11/11/2019 5:31:03 PM FINDINGS: Limitations: Motion artifact on multiple sequences that can limit evaluation. Lungs: Visualized lungs are clear. Pleura: No pleural effusion. Heart: Mild enlargement of the heart. Liver: The liver is mildly enlarged measuring 18.5 cm in length. Moderate loss of signal intensity in the liver on the out of phase sequence, consistent with moderate fatty infiltration. Gallbladder and bile ducts: A biliary stent is not definitely visualized. Evaluation of the bile ducts is limited due to motion artifact. No significant biliary ductal dilatation however. See also under ?pancreas?. Pancreas: There is moderate atrophy of the body and tail of the pancreas. Mildly dilated pancreatic duct in the body and tail of the pancreas measuring up to 4 mm in diameter (series 10, image 19). The patient has had previous resection of the head of the pancreas with a pancreaticojejunostomy. Patient has had previous resection of the distal body of the stomach with a gastrojejunostomy. Patient has had a previous cholecystectomy and hepaticojejunostomy. Constellation of findings suggests a Whipple procedure. Spleen: The spleen is unremarkable. Adrenals: The right and left adrenal glands are unremarkable. Kidneys and ureters: Simple cyst in the right kidney measuring 5.8 mm (series 7, image 2). Simple cyst in the left kidney measuring 1.1 cm (series 7, image 4). There is an extrarenal pelvis in the right kidney. No hydronephrosis. Stomach and bowel: Scattered diverticula in the visualized colon. No evidence for diverticulitis. See also under ?pancreas?. Intraperitoneal space: No ascites. Arteries: Mild tortuosity and ectasia of the aorta. Veins: There is a cystic focus in the right abdomen anterior to the right renal vein and to the right of the SMV (series 6, image 10). This measures 1.1 x 1.1 cm. Etiology is uncertain, question of this could represent a postoperative seroma. Lymph nodes: No lymphadenopathy. Bones/joints: Multilevel degenerative changes of varying severity in the visualized spine. Mild scoliosis in the visualized spine. Soft tissues: No acute abnormality in the extra-abdominal soft tissues. MR/MR MRCP [id number] IMPRESSION: 1. Postsurgical changes suggesting a prior Whipple procedure. 2. There is a cystic focus in the right abdomen anterior to the right renal vein and to the right of the SMV. Etiology is uncertain, question of this could represent a postoperative seroma. Recommend follow-up imaging to ensure stability/resolution. 3. A biliary stent is not definitely visualized. Evaluation of the bile ducts is limited due to motion artifact. No significant biliary ductal dilatation however. 4. Mild moderate atrophy of the body and tail of the pancreas with mild pancreatic ductal dilatation. 5. Mild hepatomegaly and moderate fatty infiltration of the liver. 6. Scattered diverticula in the visualized colon. No evidence for diverticulitis. 7. Incidental/nonacute findings are listed in the report.
--- NOTE | 2020-03-01 18:06 | PC.NURSE ---
Report was attempted to be called. Nurse to call back.
[2020-03-01 19:06] LABS: Amphetamines Screen Urine Negative (Negative); Barbiturates Screen Urine Negative (Negative); Benzodiazepines Screen Urine Negative (Negative); Cocaine Screen Urine Negative (Negative); Opiate Screen Urine Positive (Negative); PCP Screen Urine Negative (Negative); THC Screen Urine Positive (Negative)
--- NOTE | 2020-03-01 19:10 | PC.NURSE ---
Patient off floor with [facility] to go to MRI.
[2020-03-01] MEDS: heparin 5,000 unit/mL INJ 1 mL 5000 UNIT SUBCUT (20:33)
[2020-03-01] MEDS: sodium chloride 0.9% 1,000 ML 75 ML IV (20:33)
[2020-03-01] MEDS: sucralfate 1 gm/10 mL Oral Liq UDC PO (20:33)
[2020-03-01] MEDS: trazodone 150 mg Tablet PO (20:45)
[2020-03-01 22:02] LABS: Thyroid Stimulating Hormone 8.06 uIU/mL (0.27-4.20)
[2020-03-01 22:18] LABS: Iron 26 ug/dL (37-145); Percent Saturation 10.9 % (20-50); Total Iron Binding Capacity 238 mcg/dl; Unsaturated Iron Binding 212 ug/dL (112-347)
[2020-03-02] VITALS (9 sets, daily range): BP systolic 111–177; BP diastolic 70–86; PULSE 54–71; RESP 16–20; TEMP 36.4–37.3; O2SAT 96–98
[2020-03-02 06:16] LABS: Basophils # 0.1 10^3/uL (0.0-0.1); Basophils % 1.1 %; Eosinophils # 0.2 10^3/uL (0.0-0.8); Eosinophils % 3.7 %; Hematocrit 33.4 % (37.0-47.0); Hemoglobin 9.9 g/dL (11.5-15.3); Lymphocytes # 1.8 10^3/uL (0.8-4.8); Lymphocytes % 40.4 %; Mean Corpuscular HGB Conc 29.6 g/dL (30.0-36.0); Mean Corpuscular Hemoglobin 25.6 pg (28.0-34.0); Mean Corpuscular Volume 86.3 fL (81-99); Mean Platelet Volume 9.5 fL (7.4-10.4); Monocytes # 0.4 10^3/uL (0.2-0.9); Monocytes % 8.4 %; Neutrophils # 2.1 10^3/uL (1.8-7.7); Neutrophils % 46.2 %; Nucleated Red Blood Cells % 0 %; Platelet Count 244 10^3/cmm (130-400); Red Blood Count 3.87 10^6/uL (4.1-5.3); Red Cell Distribution Width 15.1 % (12.1-15.1); White Blood Count 4.6 10^3/uL (4.0-10.0)
[2020-03-02 06:39] LABS: Alanine Aminotransferase 28 U/L (0-33); Albumin Level 3.3 g/dL (3.5-5.2); Alkaline Phosphatase 161 IU/L (35-105); Anion Gap 13.9 (5-19); Aspartate Amino Transferase 35 U/L (0-32); Blood Urea Nitrogen 11 mg/dL (8-23); Calcium 8.5 mg/dL (8.5-10.5); Carbon Dioxide 21 mmol/L (22-29); Chloride 107 mmol/L (98-107); Chol HDL Ratio 4.13 mg/dL (0.0-4.40); Cholesterol 95 mg/dL (0-200); Globulin 2.3 g/dL (1.3-4.6); Glucose 94 mg/dL (65-115); HDL Cholesterol 23 mg/dL (60-100); LDL Cholesterol Calculated 58 mg/dL (50-129); Osmolality Calculated 284 mOsm/kg (285-295); Sodium 139 mmol/L (136-145); Total Bilirubin 0.4 mg/dL (0.15-1.2); Total Protein 5.6 g/dL (6.6-8.7); Triglycerides 72 mg/dL (0-150); VLDL Cholestrol Calculation 14 mg/dL (0-30)
[2020-03-02 06:57] LABS: Potassium 2.9 mmol/L (3.5-5.1)
[2020-03-02 07:11] LABS: Estmated Average Glucose 108; Hemoglobin A1C 5.4 % (4.0-6.0)
[2020-03-02] MEDS: potassium chloride premix 40 MEQ/100 ML PREMIX 25 MEQ IV (07:31)
[2020-03-02] MEDS: lidocaine 1% INJ 20 mL 5 ML IV (07:32)
[2020-03-02] MEDS: ondansetron 2 mg/ML SDV 2 mL 4 MG IVP (08:32)
[2020-03-02] MEDS: pantoprazole 40 mg SDV IVP (08:32)
[2020-03-02] MEDS: promethazine 25 mg/mL SDV 1 mL 12.5 MG IM (09:08)
[2020-03-02] MEDS: sodium chloride 0.9% 1,000 ML 75 ML IV ×2 (09:26→23:39)
[2020-03-02] MEDS: heparin 5,000 unit/mL INJ 1 mL 5000 UNIT SUBCUT ×2 (09:34→20:31)
[2020-03-02] MEDS: HYDROmorphone 1 mg/mL INJ 1 mL IVP (10:09)
[2020-03-02 10:13] LABS: Free T4 Free Thyroxine 1.03 ng/dL (0.82-1.77); T3 Free 2.2 PG/ML (2.0-4.4)
--- NOTE | 2020-03-02 10:18 | P.PN_ITS ---
Subjective Subjective: Interval history: Complaining of mild nausea today morning after she drank liquids very fast. Overnight had no nausea, vomiting, headache. Denies of having any palpitations. Complaining of abdominal pain. Vitals and labs noted. Vitals/I&O/Wt Last Vital Signs Temp 98.5 F 03/02/20 08:00 Pulse 71 03/02/20 08:00 Resp 20 H 03/02/20 10:09 BP 177/86 03/02/20 08:00 Pulse Ox 96 03/02/20 10:09 03/01/20 03/02/20 03/02/20 22:59 06:59 14:59 Intake Total 620 / 620 220 / 840 966.25 / 966.25 Output Total 740 / 740 Balance 620 / 620 -520 / 100 966.25 / 966.25 Weight last 48 hrs Weight 60.923 kg Weight 65.771 kg Physical Exam Narrative: EXAM NARRATIVE: General: No acute distress, AO x3, dehydrated, frail HEENT: PERRLA, pupils bilaterally equal and reactive Chest: Normal vesicular breath sounds, no added sounds, equal good air entry bilaterally CVS: S1-S2 regular, no murmurs, no tachycardia, no gallops, no rubs Abdomen: Soft, gastric area and right upper quadrant, mass felt in right upper quadrant, no rebound, bowel sounds present Neuro: No focal deficits, no facial deformity, AO x3, power 5/5 in all limbs Data : 03/03/20 03:54 03/03/20 03:54 A&P Assessment and plan (1) Vomiting: Status: Acute (2) Abdominal pain: Status: Acute Qualifiers: Abdominal location: generalized Qualified Code(s): R10.84 - Generalized abdominal pain (3) Pancreatic cancer: Status: Acute (4) History of biliary duct stent placement: Status: Acute (5) Hypothyroidism: Status: Acute Additional A&P Information Vomiting abdominal pain: History of pancreatic mass resected in December with biliary duct stent placed in September 2019. Patient is due for chemotherapy this Wednesday. Patient does not have any fever, leukocytosis, no colitis or SBO on CT scan. MRCP negative for any gall CBD obstruction Clear liquid diet Zofran and promethazine for vomiting as needed. Continue pain medications at home dose. She takes oxycodone 10 mg every 8 hourly as needed. Patient most likely needs education and counseling regarding dietary habits given her surgery now. After explained to her in detail regarding changes in her diet and habits to prevent further recurrent nausea and vomiting. Patient does not have any leukocytosis, infiltrate on chest x-ray, intra- abdominal collection on CT scan, UA is normal as well without any dysuria we will hold off on any antibiotics for now. Hypothyroidism: Continue home dose of levothyroxine. Continue home dose of duloxetine, trazodone. We will request documents from [facility] regarding her recent hospitalization. Full code. Clear liquid diet, advance as tolerated. SCDs, Heparin 5000 every 12 for DVT prophylaxis Attestations Medical Necessity Statement*: Persistent nausea and vomiting. Time Spent in Patient Care: Greater than 35 minutes (>than 50% of time spent in counselling and/or direct pt care on unit) . Coding Level of Care Code Acute Scanning Supervisor for Chg Fwd Diagnoses Vomiting R11.10 Abdominal pain R10.84 Abdominal location: generalized Pancreatic cancer C25.9 History of biliary duct stent placement Z98.890 Hypothyroidism E03.9
--- NOTE | 2020-03-02 11:33 | PC.CHAP ---
Pastoral Care Encounter/Spiritual Assessment Type of Contact [] Declined leather finisher visit [] Patient/Family/Request visit [] Outpatient visit [] Follow-up visit [] Physician referral [] Code/Alert [X] Routine visit [] Staff referral [] Actively dying [X] Patient sleeping [] Family support [] [] Out of room [] Palliative care [] [] Receiving care in room [] Pre-surgical visit [] Trauma [] Long length of stay [] ICU visit [] Other: Relational/Emotional Strength [] Patient feels connected with others/family/visitors/staff [] Distress [] Loneliness/isolation [] Abandonment Spirituality of Patient [] Person of Essence [] Attends Scientology of their Essence [] Believes in Prayer [] Reads Bible or Mormonism materials [] There are Spiritual issues to be addressed Picker Box Operator Interventions [] Prayer [] Active listening [] Non-anxious presence [] Spiritual/emotional support [] Crisis/trauma care [] Spiritual counseling [] Bereavement support [] Provided bereavement packet [] Provided Bible/devotional materials [] Provided toy/stuffed animal, coloring book to patient or family member [] Provided Communion [] Anointing/[place] [] Salvation [] Completed spiritual assessment [] Other: Impact on Illness or Injury [] Angry [] Fearful [] Anxious [] Often cries [] Exhaustion [] Unable to work [] Unable to attend rastafari [] Unable to walk/stand [] Unable to read [] Unable to drive [] Unable to eat/drink [] Unable to sleep [] Unable to be with family [] Patient intubated [] Other: Summary: Pastoral care visit attempted twice. First time, staff was in the room. Second attempt - pt sleeping. I will attempt again tomorrow if pt remains in hospital. Time spent with patient
[2020-03-02] MEDS: sucralfate 1 gm/10 mL Oral Liq UDC PO ×3 (11:41→20:28)
[2020-03-02] MEDS: lipase-protease-amylase Capsule 1 EACH PO ×2 (11:41→17:36)
[2020-03-02] MEDS: oxyCODONE 5 mg IR Tab/Cap 10 MG PO ×2 (14:57→22:47)
[2020-03-02] MEDS: trazodone 150 mg Tablet PO (20:28)
[2020-03-03] MEDS: promethazine 25 mg/mL SDV 1 mL 12.5 MG IM (01:18)
[2020-03-03 04:00] VITALS: BP 159/80; PULSE 61; RESP 20; TEMP 36.9; O2SAT 95
[2020-03-03 04:10] LABS: Basophils # 0.1 10^3/uL (0.0-0.1); Eosinophils # 0.2 10^3/uL (0.0-0.8); Hematocrit 30.7 % (37.0-47.0); Hemoglobin 9.6 g/dL (11.5-15.3); Lymphocytes # 2.1 10^3/uL (0.8-4.8); Lymphocytes % 41.5 %; Mean Corpuscular HGB Conc 31.3 g/dL (30.0-36.0); Mean Corpuscular Hemoglobin 26.1 pg (28.0-34.0); Mean Corpuscular Volume 83.4 fL (81-99); Mean Platelet Volume 9.9 fL (7.4-10.4); Monocytes # 0.4 10^3/uL (0.2-0.9); Neutrophils # 2.3 10^3/uL (1.8-7.7); Neutrophils % 46.3 %; Nucleated Red Blood Cells % 0 %; Platelet Count 227 10^3/cmm (130-400); Red Blood Count 3.68 10^6/uL (4.1-5.3)
[2020-03-03] MEDS: acetaminophen 325 mg Tablet 650 MG PO (04:22)
[2020-03-03 04:24] LABS: Alanine Aminotransferase 26 U/L (0-33); Albumin Level 3.2 g/dL (3.5-5.2); Alkaline Phosphatase 147 IU/L (35-105); Anion Gap 12.5 (5-19); Aspartate Amino Transferase 35 U/L (0-32); Blood Urea Nitrogen 8 mg/dL (8-23); Calcium 8.7 mg/dL (8.5-10.5); Carbon Dioxide 22 mmol/L (22-29); Chloride 108 mmol/L (98-107); Globulin 2.1 g/dL (1.3-4.6); Glucose 111 mg/dL (65-115); Osmolality Calculated 285 mOsm/kg (285-295); Potassium 3.5 mmol/L (3.5-5.1); Sodium 139 mmol/L (136-145); Total Bilirubin 0.4 mg/dL (0.15-1.2); Total Protein 5.3 g/dL (6.6-8.7)
[2020-03-03] MEDS: ondansetron 2 mg/ML SDV 2 mL 4 MG IVP (04:27)
--- NOTE | 2020-03-03 05:59 | PC.NURSE ---
SHIFT SUMMARY Has rested for intervals. Medicated for abd pain with po Oxycodone. Says abdominal pain is much better and has figured out if she takes small amts of diet at a time she has less nausea. Later c/o headache and Dr was called for Tylenol order. Headache was causing some nausea and received Zofran for this. No vomiting this shift. Says is supposed to go home today and is to start chemo soon. IV infusing without difficulty.
[2020-03-03] MEDS: sucralfate 1 gm/10 mL Oral Liq UDC PO ×2 (06:04→10:27)
[2020-03-03 06:34] VITALS: RESP 18
[2020-03-03] MEDS: oxyCODONE 5 mg IR Tab/Cap 10 MG PO (06:34)
[2020-03-03] MEDS: lipase-protease-amylase Capsule 1 EACH PO ×2 (07:14→12:03)
[2020-03-03 08:00] VITALS: BP 124/71; PULSE 89; RESP 20; TEMP 37.1; O2SAT 96
[2020-03-03] MEDS: heparin 5,000 unit/mL INJ 1 mL 5000 UNIT SUBCUT (08:19)
[2020-03-03] MEDS: pantoprazole 40 mg SDV IVP (08:19)
[2020-03-03] MEDS: TRAMadol 50 mg Tablet PO (08:19)
[2020-03-03] MEDS: levothyroxine 88 mcg Tablet PO (08:20)
[2020-03-03] MEDS: cetirizine 10 mg Tablet PO (08:20)
--- NOTE | 2020-03-03 10:46 | PC.CHAP ---
Pastoral Care Encounter/Spiritual Assessment Type of Contact [] Declined rawhide trimmer visit [] Patient/Family/Request visit [] Outpatient visit [] Follow-up visit [] Physician referral [] Code/Alert [X] Routine visit [] Staff referral [] Actively dying [] Patient sleeping [] Family support [] [] Out of room [] Palliative care [] [] Receiving care in room [] Pre-surgical visit [] Trauma [] Long length of stay [] ICU visit [] Other: Relational/Emotional Strength [X] Patient feels connected with others/family/visitors/staff [] Distress [] Loneliness/isolation [] Abandonment Spirituality of Patient [X] Person of Essence [] Attends Jehovah'S Witness of their Essence [X] Believes in Prayer [X] Reads Bible or Zoroastrianism materials [] There are Spiritual issues to be addressed Packaging Engineer Interventions [X] Prayer [X] Active listening [X] Non-anxious presence [] Spiritual/emotional support [] Crisis/trauma care [] Spiritual counseling [] Bereavement support [] Provided bereavement packet [X] Provided Bible/devotional materials [] Provided toy/stuffed animal, coloring book to patient or family member [] Provided Communion [] Anointing/[place] [] Salvation [X] Completed spiritual assessment [] Other: Impact on Illness or Injury [] Angry [] Fearful [] Anxious [] Often cries [] Exhaustion [] Unable to work [] Unable to attend restoration [] Unable to walk/stand [] Unable to read [] Unable to drive [] Unable to eat/drink [] Unable to sleep [] Unable to be with family [] Patient intubated [] Other: Summary: Pt dx'ed with pancreatic cancer in December. She begins out-pt chemotx tomorrow. She is in very good spirits and talked a lot about her foster kids. She has good support in her community, but lacks running water. She reports that water is to be hooked up next week. She saw that I had [employer] with me and was very excited to receive one. We joined in prayer. Time spent with patient: 30 mins
[2020-03-03 11:04] VITALS: BP 138/91; PULSE 69; RESP 16; TEMP 36.6; O2SAT 97
--- NOTE | 2020-03-03 12:18 | PM.DCS ---
Discharge Providers Date of Admission: 03/01/20 17:16 Date of Discharge: March 03, 2020 Attending Provider at Admission: Josh Horta MD Attending Provider at Discharge: Josh Horta MD Diagnoses at Discharge Discharge Diagnosis (1) Vomiting: Status: Acute (2) Abdominal pain: Status: Acute Qualifiers: Abdominal location: generalized Qualified Code(s): R10.84 - Generalized abdominal pain (3) Pancreatic cancer: Status: Acute (4) History of biliary duct stent placement: Status: Acute (5) Hypothyroidism: Status: Acute Reason for Visit Reason for Visit: abd pain/N/V Hospital Course Discharge Summary: Amada Metz is a 74 year old female with a past medical history of pancreatic head mass status post biliary stent placement in [facility] September 2019, pancreatic mass resection in December 2019, hypothyroidism, who apparently was admitted at [facility] till February 06 for around 2 weeks with complaint of nausea and vomiting. Patient is not really aware of what was done at [facility] during that admission. She presents to the emergency room due to complaints of nausea, vomiting, abdominal pain on and off since her discharge getting acutely worse this week. This is her third visit to the ER in this week. She states sometime when she eats she is okay but sometimes when she eats she feels really nauseous and vomits. Vomiting is mostly what she eats, sometimes bilious, not foul-smelling or blood-tinged. Last she ate was yesterday. Today she had bilious vomiting and she vomited what she ate yesterday. Vomiting was preceded by abdominal pain. She denies of having any constipation, diarrhea, fevers, sick contacts, food poisoning, dysuria. She complains of feeling weak. In ER her hemoglobin was 12.4, white count of 7.2, sodium was 135, potassium of 3.3, BUN of 14, AST/ALT of 49/37 and alkaline phosphatase of 203 which has been getting progressively worsened since her 3 visits in the ER this week urinalysis was negative for nitrites or leukoesterase. CT abdomen pelvis was done which showed small hiatal hernia, infiltration of the liver. Because of her history of recent Whipple's procedure MRCP was done to rule out CBD obstruction or dilatation. She was kept n.p.o. and was treated conservatively. Her diet was gradually advanced and at present she is able to tolerate GI soft diet. Patient symptoms are most likely because she is eating too fast causing her to have slow transition leading to nausea and vomiting. Patient was educated and counseled in detail that now with her being post Whipple's procedure she needs to eat small frequent meals and eat slowly. Once she started doing the above her symptoms were relieved. She is been discharged in hemodynamically stable condition at her baseline mentation and oxygen/supplementation with advised to follow-up with her oncologist on the set appointment for commencement of chemotherapy. Physical Exam Narrative: EXAM NARRATIVE: General: No acute distress, AO x3, dehydrated, frail HEENT: PERRLA, pupils bilaterally equal and reactive Chest: Normal vesicular breath sounds, no added sounds, equal good air entry bilaterally CVS: S1-S2 regular, no murmurs, no tachycardia, no gallops, no rubs Abdomen: Soft, gastric area and right upper quadrant, mass felt in right upper quadrant, no rebound, bowel sounds present Neuro: No focal deficits, no facial deformity, AO x3, power 5/5 in all limbs Discharge Data Data Completed and Pending: Completed Studies During Hospitalization Category Date Time Status CT abdomen pelvis w con* [id number] Stat Cat Scan 03/01/20 12:52 Completed MR MRCP [id number] Urg ent MRI 03/01/20 18:06 Completed US gall bladder 7 [id number] Urgent Ultrasound 03/01/20 16:10 Completed Pending at discharge Category Date Time Status Immunochemical Fe radha OCB Stat Lab 03/01/20 12:53 Uncollected Labs from last 24 hours 03/03/20 03/03/20 03:54 03:54 WBC 5.0 RBC 3.68 L Hgb 9.6 L Hct 30.7 L MCV 83.4 MCH 26.1 L MCHC 31.3 D RDW 15.0 Plt Count 227 MPV 9.9 Neut % (Auto) 46.3 Lymph % (Auto) 41.5 [place] % (Auto) 8.0 Eos % (Auto) 3.0 Baso % (Auto) 1.0 Neut # (Auto) 2.3 Lymph # (Auto) 2.1 [place] # (Auto) 0.4 Eos # (Auto) 0.2 Baso # (Auto) 0.1 Nucleated RBC % (a uto) 0 Nucleated RBCs # 0.0 Sodium 139 Potassium 3.5 Chloride 108 H Carbon Dioxide 22 Anion Gap 12.5 BUN 8 Creatinine 0.5 Glucose 111 Calculated Osmolal ity 285 Calcium 8.7 Total Bilirubin 0.4 AST 35 H ALT 26 Alkaline Phosphata se 147 H Total Protein 5.3 L Albumin 3.2 L Globulin 2.1 Vitals: Last Vital Signs Temp 97.9 F 03/03/20 11:04 Pulse 69 03/03/20 11:04 Resp 16 03/03/20 11:04 BP 138/91 03/03/20 11:04 Pulse Ox 97 03/03/20 11:04 Discharge Plan Discharge Patient Disposition: Home, Self-Care Condition: Stable Prescriptions: New sucralfate 100 mg/mL Suspension 1 g PO AC&BEDTIME Qty: 100 RF: 0 Zenpep 5,000-17,000- 24,000 unit Capsule,Delayed Release(Dr/Ec) 1 ea PO TIDWM Qty: 30 RF: 0 Continued cetirizine 10 mg Tablet 10 mg PO DAILY RF: 0 omeprazole 40 mg Capsule,Delayed Release(Dr/Ec) 40 mg PO DAILY RF: 0 levothyroxine 88 mcg Tablet 88 mcg PO DAILY RF: 0 trazodone 150 mg Tablet 150 mg PO BEDTIME PRN (Reason: Sleep) RF: 0 duloxetine 30 mg Capsule,Delayed Release(Dr/Ec) 30 mg PO DAILY RF: 0 oxycodone 10 mg tablet 10 mg PO Q8H PRN (Reason: pain) Qty: 20 RF: 0 ondansetron 4 mg tablet,disintegrating 4 mg PO Q6H PRN (Reason: nausea and vomiting) Qty: 14 RF: 0 tramadol 50 mg Tablet 50 mg PO DAILY 14 Days Qty: 14 RF: 0 Discharge Orders: Discharge Order (Routine); Ordered 03/03/20 Ordered By: Josh Horta Discharge Diet: GI Soft Discharge Activity: Resume usual activity Patient Instructions: Sucralfate (By mouth), Pancrelipase (By mouth), Acute Nausea and Vomiting (GEN) Activity Restrictions/Additional Instructions: Please keep small frequent meals during the day. Please try to avoid eating food too fast. With your Whipple's procedure now you should be on GI soft bland diet at least for 2 weeks and then advance gradually as tolerated. Please follow-up with your oncologist on the set appointment for commencement of chemotherapy. Discharge Attestations Time Spent in Discharge Care*: greater than 30 min Specific Discharge Activities: Specific discharge activities: educating patient, educating and/or supporting family/caregiver, discussing with disease case manager/social workers/dc planners, documenting/other paperwork and evaluating patient/reviewing data Status at Discharge: Cognitive status at discharge: cognitively intact, Behavioral status at discharge: cooperative, Functional status at discharge: independent ambulation Overall status at discharge: patient is back to baseline Quality Metrics Clinical Quality Measures During this hospital stay, did patient experience: None Coding Level of Care Code Acute Dough Scaler And Mixer for Chg Fwd Diagnoses Vomiting R11.10 Abdominal pain R10.84 Abdominal location: generalized Pancreatic cancer C25.9 History of biliary duct stent placement Z98.890 Hypothyroidism E03.9
[2020-03-03 12:25] VITALS: BP 138/91; PULSE 69; RESP 16; TEMP 36.6; O2SAT 97
[2020-03-03] MEDS: sodium chloride 0.9% 1,000 ML 75 ML IV (13:30)
== END 2020-03-03 14:44 | disposition home or self-care (01) ==
LOC: ER 12:49 → MEDSURG 18:03
PROVIDERS: Family Medicine; Admitting Provider Student in an Organized Health Care Education/Training Program; Visit Provider Student in an Organized Health Care Education/Training Program
DX: R11.10 Vomiting, unspecified (principal); R10.84 Generalized abdominal pain; C25.9 Malignant neoplasm of pancreas, unspecified; Z98.890 Other specified postprocedural states; E03.9 Hypothyroidism, unspecified
CPT/HCPCS: 12345; 36415; 74177; 74181; 76705; 80053; 80061; 80306; 81003; 83036; 83540; 83550; 83605; 83690; 83735; 84100; 84439; 84443; 84481; 85025; 96361; 96372; 96374; 96375; 99283; 99285; C9113; G0378; J1170; J1644; J2001; J2060; J2405; J2550; J2765; J3480; J7030; J7040; Q9967

== ENCOUNTER 2020-03-04 13:16 | Outpatient (CLI) | payer MEDICAID, SELFPAY ==
--- NOTE | 2020-03-04 17:35 | ONC CON_ITS ---
Dr. Malone New Patient Note Patient: Amada Metz Unit #: [id number]: 1945 Dicatated By: Gurinder Malone M.D.Date of Visit: Mar 04, 2020 Onc MED New Patient/Consult Referring Physician: Amanda Lindquist History of Present Illness: Ms. Amada Metz, is a 74-year-old female diagnosed with pancreatic cancer on September 26, 2019 per endoscopic ultrasonogram guided FNA of pancreatic head mass. As per patient in September 2019 she started having progressive nausea vomiting and abdominal pain at that time she underwent CT scan of abdomen pelvis which showed pancreatic mass and she was referred to [facility] where she underwent ERCP and biliary stent sphincterectomy with fully covered metal stent was placed in. At that time CT scan of abdomen pelvis showed pancreatic head mass that abuts the gastroduodenal artery and an enlarged peripancreatic lymph node inferior to the pancreas mass measuring 15 x 8 mm and patient also noted to have scattered bilateral pulmonary nodules measuring 0.6 cm in the left lower lobe, as per patient those nodules are chronic. 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 Surgical margins were clear pT2, 8/39 lymph nodes showed metastatic disease pN2, stage III. Patient was recommended adjuvant chemotherapy, due to poor performance status Folfirinox was not considered rather gemcitabine/Xeloda x6 cycle was recommended. Patient want to take her chemotherapy in [place] due to close proximity to her home. Today, patient is complaining of severe abdominal pain on the scale of 1-10 around 9 and also persistent nausea vomiting as per patient she was recently discharged from the hospital and her symptoms did not improve much. As per patient since her surgery done in December 2019, she has persistent off and on nausea vomiting and abdominal pain and been admitted to hospital multiple times. Patient denies any jaundice, patient denies any melena or hematochezia, denies any hemoptysis or hematemesis, denies any abdominal fullness denies any dysuria or hematuria, denies any fever or chills. But weight loss. Past Medical History: Ms. Metz's medical history consists of gastroesophageal reflux disease, history of hepatitis c, hypertension, and hypothyroidism. Past Surgical History: Ms. Martinezs surgical/procedural history consists of appendectomy, biliary sphincterectomy with metal stent placed, cholecystectomy, ERCP, hysterectomy, and whipple in 2019. Medications: Cetirizine HCl 1 Tablet (of 10 mg) Oral daily, DULoxetine HCl 1 Capsule (of 30 mg) Capsule Delayed Release Particles Oral daily, Flonase 1 [place](s) (of 50 mcg/act) Suspension Nasal PRN, HYDROcodone-Acetaminophen 1 Tablet (of 5-325 mg) Oral q 6 hours PRN, Levothyroxine Sodium 1 Tablet (of 88 mcg) Oral daily, Omeprazole 1 Capsule (of 40 mg) Capsule Delayed Release Oral daily, Ondansetron HCl 1 Tablet (of 4 mg) Oral q PRN, oxyCODONE HCl 1 Tablet (of 5 mg) Oral q 4 hours PRN, Premarin 1 (0.625 mg/g) Cream Vaginal q 7 days, Promethazine HCl 1 Tablet (of 25 mg) Oral q 6 hours PRN, traZODone HCl 1 Tablet (of 150 mg) Oral at bedtime Allergies: Gabapentin, Lyrica, and Morphine Sulfate. Social History: Ms. Metz is and she is retired. Ms. Metz has never smoked. She is a former drinker. Ms. Metz reports the following support systems: lives alone, supportive family/friends willing to assist with needs, and adequate transportation available for expected visits. Her diet consists of regular meals. She indicates her activity level as: light exercise. Family History: Ms. Metz's mother at age 83: lung cancer. Ms. Metz's father at age 80: colon cancer. Review Of Symptoms: Constitutional - Appetite is poor and weight is stable. No fever or hot flashes. Energy level is poor. Positive for night sweats, ENMT - No sinus congestion/drainage. No mouth sores. No sore throat or difficulty swallowing, Hematologic/Lymphatic - No abnormal bruising or bleeding, Respiratory - Positive for shortness of breath. No cough. No pleuritic pain or hemoptysis, Cardiovascular - No angina pain. No palpitations, Gastrointestinal - Positive for nausea, no vomiting. No heartburn or acid reflux. No diarrhea or constipation. No blood in the stool or black stools, Genitourinary (F) - No dysuria or hematuria. Positive for urinary frequency. No urgency. Positive for incontinence, Musculoskeletal - Positive for joint pain, Neurologic - No headache or dizziness. No numbness or tingling. No other focal neurologic symptoms, Psychiatric - No anxiety or depression. No insomnia. Vital Signs: Performed on Mar 04, 2020 14:02: 8, 22.80, 1.64 sq.m, 64.00 in, 100 %, 83 /min, 22 /min, 175/107 mm(hg) (HIGH), 98.5 F, and 132.8 lbs (HIGH). Performance Status: 2 - Ambulatory/capable of all self-care, unable to perform any work activities. Up and about more than 50% of waking hours. (ECOG) Physical Examination: ENMT - No mouth sores, no thrush, no jaundice, Respiratory - Lungs are clear, Cardiovascular - Regular rate and rhythm of heart, Abdomen - Soft, bowel sounds present, tenderness in the epigastric area, no mass palpable, Extremities - No edema or rash. Lab/Imaging: Most recent lab results are not available for this patient. Impression: Pancreatic adenocarcinoma, well-differentiated, size 3.6 cm status post diagnostic laparoscopy, Whipple's procedure pancreaticoduodenectomy, intra-abdominal extended portal and retroperitoneal lymphadenectomy done on December 22, 2019, with clear surgical margins, but with lymphovascular and perineural invasion. pT2 8 out of 39 lymph nodes showed metastatic disease pN2, stage III Bilateral pulmonary nodules, largest 0.6 cm and left lower lobe, as per patient they are chronic in nature. Persistent nausea/vomiting and epigastric abdominal pain etiology unclear could be obstruction or ileus Normocytic normochromic anemia, Plan: Discussed with patient regarding her disease status and further treatment options which include observation versus adjuvant chemotherapy with gemcitabine/Xeloda, as recommended by Dr. Lindquist, medical oncologist at [facility]. Patient is not severe distress due to severe abdominal pain and nausea vomiting, case was discussed with ER physician and she was sent to ER for further evaluation and management but in the meantime, As patient already knows , As per her discussion with Dr. Lindquist, medical oncologist at [place] regarding the role of adjuvant chemotherapy with gemcitabine thousand milligrams per meter square day 1, 8 and day 15 and repeat every 28 days along with Xeloda 830 mg/m??? day 1 through 21 and repeat every 28 days x 6 cycles. We will consider port placement and also obtain approval from insurance prior to the treatment. Patient will return to clinic 1 week after her discharge from the hospital with CBC CMP. If CBC shows persistent anemia will consider work-up. Signed By: Gurinder Malone M.D. <<Signature on File>>
== END 2020-03-04 13:17 | disposition home or self-care (01) ==
LOC: ONCMED 13:22
PROVIDERS: PCP Nurse Practitioner Primary Care; Visit Provider Internal Medicine Hematology & Oncology
DX: C25.0 Malignant neoplasm of head of pancreas (principal); C77.2 Secondary and unspecified malignant neoplasm of intra-abdominal lymph nodes; R11.2 Nausea with vomiting, unspecified; R10.13 Epigastric pain; D64.9 Anemia, unspecified; R91.8 Other nonspecific abnormal finding of lung field; Z90.49 Acquired absence of other specified parts of digestive tract
CPT/HCPCS: 99203

== ENCOUNTER 2020-03-04 15:04 | Emergency (ER) | payer MEDICAID, SELFPAY ==
[2020-03-04] VITALS (8 sets, daily range): BP systolic 115–171; BP diastolic 60–104; PULSE 59–88; RESP 16–20; TEMP 36.9; O2SAT 95–99; BMI 23.8
--- NOTE | 2020-03-04 15:24 | W.ED.ABDPA2 ---
Documented by User: PATTIE Becker 03/04/20 16:24 HPI - Abdominal Pain General: Chief Complaint: Abdominal Pain Stated Complaint: abd pain n/v Time Seen by Provider: 03/04/20 15:13 Source: patient Mode of arrival: ambulatory Limitations: no limitations History of Present Illness: HPI narrative: Patient comes in today for complaints of abdominal pain and vomiting. Patient was released from the hospital yesterday for similar complaints from admission on the . Patient has pancreatic cancer and has had a Whipple procedure with stent placed and a resection of the pancreas both in September and then again in December for the resection. Patient states that she had a bowl of cereal around 8:00 this morning. Patient was seen at her physician's office this afternoon and became ill at that time with the pain and feeling really nauseous. Patient reports her episode of emesis occurred while being in the ER evaluation of it shows to be bilious. MD elicited complaint: abdominal pain Associated Symptoms: Reports nausea and vomiting Review of Systems General: Reports: 10 or more systems reviewed and unremarkable except in HPI and below GI: Reports: abdominal pain, nausea and vomiting PFSH ED PFSH: Medical History (Updated 03/04/20 @ 20:35 by Mckenzie Archuleta) Hypothyroidism Pancreatic cancer Pancreatic mass Surgical History (Updated 03/04/20 @ 06:49 by Gutierrez Gusman DO) H/O resection of pancreas History of biliary duct stent placement Family History Other CAD (coronary artery disease) Social History (Updated 03/01/20 @ 18:03 by Josh Horta MD) Smoking and tobacco status: never smoked Alcohol intake: never Physical Exam Const: COMMON NORMALS: no acute distress and patient oriented x3 GENERAL APPEARANCE: cooperative HENMT: COMMON NORMALS: normocephalic, TM's normal bilaterally and Normal external nose present HEAD & SCALP: normal to inspection and normocephalic NOSE: Normal external nose present TYMPANIC MEMBRANE: TM's normal bilaterally MOUTH: Normal oral and palatal mucosa present THROAT: posterior oropharynx normal Eye: GENERAL EYE: appearance normal, both eyes and all related structures Neck/C-Spine: COMMON NORMALS: full ROM Lymph: LYMPHATIC: no lymphadenopathy noted Chest: COMMONS NORMALS: normal inspection of the chest Resp: COMMON NORMALS: normal respiratory effort EFFORT & INSPECTION: Yes able to speak in complete sentences Cardio: COMMON NORMALS: regular rate and regular rhythm RATE: regular rate RHYTHM: regular rhythm GI: COMMON NORMALS: Soft to palpation PALPATION: Yes Soft to palpation and Yes Tenderness to palpation present (GI) (Midepigastric) : COMMON NORMALS: Yes no CVA tenderness BLADDER/KIDNEY EXAM: Yes no CVA tenderness Back/Pelvis: COMMON NORMALS: no CVA tenderness and thoracic and lumbar spine normal to inspection Extremity: COMMON NORMALS: normal to inspection Neuro: COMMON NORMALS: patient oriented x3 and moves all extremities Psych: COMMON NORMALS: mental status grossly normal and cooperative Skin: COMMON NORMALS: no rashes or lesions noted GENERAL SKIN EXAM: no rashes or lesions noted Course ED course: 1624, reviewed with Dr. Peters patient and aware we are awaiting CT scan of the abdomen and pelvis. Patient is resting after medication for pain and nausea given. wjw Vital Signs: Vital signs: Vital Signs Temperature 98.5 F 03/04/20 15:04 Pulse Rate 64 03/04/20 19:07 Respiratory Rate 16 03/04/20 19:07 Blood Pressure 169/88 03/04/20 19:07 Pulse Oximetry 98 03/04/20 19:07 MDM - Abdominal Pain Lab Data: Labs: Lab Results 03/04/20 03/04/20 03/04/20 Range/Units 15:34 15:34 15:34 WBC 5.6 (4.0-10.0) 10^3/ uL RBC 4.43 (4.1-5.3) 10^6/u L Hgb 11.5 (11.5-15.3) g/dL Hct 37.4 (37.0-47.0) % MCV 84.4 (81-99) fL MCH 26.0 L (28.0-34.0) pg MCHC 30.7 (30.0-36.0) g/dL RDW 15.1 (12.1-15.1) % Plt Count 248 (130-400) 10^3/c mm MPV 9.7 (7.4-10.4) fL Neut % (Auto) 62.3 % Lymph % (Auto) 27.2 % [place] % (Auto) 8.0 % Eos % (Auto) 1.6 % Baso % (Auto) 0.7 % Neut # (Auto) 3.5 (1.8-7.7) 10^3/u L Lymph # (Auto) 1.5 (0.8-4.8) 10^3/u L [place] # (Auto) 0.5 (0.2-0.9) 10^3/u L Eos # (Auto) 0.1 (0.0-0.8) 10^3/u L Baso # (Auto) 0.0 (0.0-0.1) 10^3/u L Nucleated RBC % (a uto) 0 % Nucleated RBCs # 0.0 /100WBC Sodium 140 (136-145) mmol/L Potassium 3.1 L (3.5-5.1) mmol/L Chloride 103 (98-107) mmol/L Carbon Dioxide 22 (22-29) mmol/L Anion Gap 18.1 (5-19) BUN 10 (8-23) mg/dL Creatinine 0.6 (0.5-0.9) mg/dL Glucose 114 (65-115) mg/dL Calculated Osmolal ity 287 (285-295) mOsm/k g Calcium 9.8 (8.5-10.5) mg/dL Magnesium 1.7 (1.7-2.3) mg/dL Total Bilirubin 0.6 (0.15-1.2) mg/dL AST 34 H (0-32) U/L ALT 32 (0-33) U/L Alkaline Phosphata se 192 H (35-105) IU/L Troponin T Baselin e (0-10) ng/L Total Protein 6.8 (6.6-8.7) g/dL Albumin 4.0 (3.5-5.2) g/dL Globulin 2.8 (1.3-4.6) g/dL Lipase 5 L (13-60) U/L Urine Color (Yellow) Urine Appearance (CLEAR) Urine pH (5-7) Ur Specific Gravit y (1.005-1.030) Urine Protein (Negative) Urine Glucose (UA) (Normal) Urine Ketones (Negative) Urine Blood (Negative) Urine Nitrate (Negative) Urine Bilirubin (NEGATIVE) Urine Urobilinogen (Negative) mg/dL Ur Leukocyte Stephanie ase (Negative) 03/04/20 03/04/20 Range/Units 16:33 19:17 WBC (4.0-10.0) 10^3/ uL RBC (4.1-5.3) 10^6/u L Hgb (11.5-15.3) g/dL Hct (37.0-47.0) % MCV (81-99) fL MCH (28.0-34.0) pg MCHC (30.0-36.0) g/dL RDW (12.1-15.1) % Plt Count (130-400) 10^3/c mm MPV (7.4-10.4) fL Neut % (Auto) % Lymph % (Auto) % [place] % (Auto) % Eos % (Auto) % Baso % (Auto) % Neut # (Auto) (1.8-7.7) 10^3/u L Lymph # (Auto) (0.8-4.8) 10^3/u L [place] # (Auto) (0.2-0.9) 10^3/u L Eos # (Auto) (0.0-0.8) 10^3/u L Baso # (Auto) (0.0-0.1) 10^3/u L Nucleated RBC % (a uto) % Nucleated RBCs # /100WBC Sodium (136-145) mmol/L Potassium (3.5-5.1) mmol/L Chloride (98-107) mmol/L Carbon Dioxide (22-29) mmol/L Anion Gap (5-19) BUN (8-23) mg/dL Creatinine (0.5-0.9) mg/dL Glucose (65-115) mg/dL Calculated Osmolal ity (285-295) mOsm/k g Calcium (8.5-10.5) mg/dL Magnesium (1.7-2.3) mg/dL Total Bilirubin (0.15-1.2) mg/dL AST (0-32) U/L ALT (0-33) U/L Alkaline Phosphata se (35-105) IU/L Troponin T Baselin e 17 H (0-10) ng/L Total Protein (6.6-8.7) g/dL Albumin (3.5-5.2) g/dL Globulin (1.3-4.6) g/dL Lipase (13-60) U/L Urine Color Yellow (Yellow) Urine Appearance Clear (CLEAR) Urine pH 6 (5-7) Ur Specific Gravit y 1.015 (1.005-1.030) Urine Protein Neg (Negative) Urine Glucose (UA) Norm (Normal) Urine Ketones 1+ H (Negative) Urine Blood Neg (Negative) Urine Nitrate Negative (Negative) Urine Bilirubin Neg (NEGATIVE) Urine Urobilinogen 1 H (Negative) mg/dL Ur Leukocyte Stephanie ase Negative (Negative) Discharge Plan Discharge Patient Disposition: Xfer Short-Term Hosp Clinical Impression: Intractable nausea and vomiting Abdominal pain Qualifiers: Abdominal location: generalized Qualified Code(s): R10.84 - Generalized abdominal pain Condition: Stable Discharge Orders: Transfer Out of Facility (Order); Ordered 03/04/20 Ordered By: Mckenzie Archuleta Referrals: Fiona Henriquez SALES RECORD CLERK [Primary Care Provider] - Patient Instructions: Cholecystitis (ED), Abdominal Pain (ED) Sign Out Sign Out Data: Patient Sign Out occurred on 03/04/20 at 16:23. Patient's care was discussed, and care was transferred from to Mckenzie Archuleta. Coding Level of Care Code ED Corrugated Box Machine Operator for Chg Fwd Exam Comprehensive Documented by User: Mckenzie Archuleta 03/04/20 20:50 HPI - Abdominal Pain General: Chief Complaint: Abdominal Pain Stated Complaint: abd pain n/v Time Seen by Provider: 03/04/20 15:13 PFSH ED PFSH: Medical History (Updated 03/04/20 @ 20:35 by Mckenzie Archuleta) Hypothyroidism Pancreatic cancer Pancreatic mass Surgical History (Updated 03/04/20 @ 06:49 by Gutierrez Gusman DO) H/O resection of pancreas History of biliary duct stent placement Family History Other CAD (coronary artery disease) Social History (Updated 03/01/20 @ 18:03 by Josh Horta MD) Smoking and tobacco status: never smoked Alcohol intake: never Course Vital Signs: Vital signs: Vital Signs Temperature 98.5 F 03/04/20 15:04 Pulse Rate 64 03/04/20 19:07 Respiratory Rate 16 03/04/20 19:07 Blood Pressure 169/88 03/04/20 19:07 Pulse Oximetry 98 03/04/20 19:07 MDM - Abdominal Pain MDM Narrative: Medical decision making narrative: Patient care transferred to nc at [facility] end of shift. Please see his note for his history, physical exam and medical decision-making notes. Throughout the time here the patient is continued complaint of abdominal pain and continues to vomit small amounts of gastric acid and bile. Dr. Malone had referred the patient here for evaluation and request that she be transferred back to [place] for complete evaluation since her Whipple procedure was performed there. Please see his note for that report. I discussed the case with Dr. Pop, on-call for the oncology service at [facility] and she agrees to accept the patient in transfer. At this time the patient is stable but still has associated nausea and vomiting and abdominal pain. Patient CT scan was noncontrast as no IV could be placed even with ultrasound guidance and per radiology protocol an external jugular vein cannot be utilized. Patient continues to have gentle hydration done here. We will continue to give her pain medicine, nausea medication and IV fluids until she is ready for transfer. Medical Records: Attestation: I reviewed the patient's medical records. Lab Data: Attestation: I reviewed the patient's lab results. Labs: Lab Results 03/04/20 03/04/20 03/04/20 Range/Units 15:34 15:34 15:34 WBC 5.6 (4.0-10.0) 10^3/ uL RBC 4.43 (4.1-5.3) 10^6/u L Hgb 11.5 (11.5-15.3) g/dL Hct 37.4 (37.0-47.0) % MCV 84.4 (81-99) fL MCH 26.0 L (28.0-34.0) pg MCHC 30.7 (30.0-36.0) g/dL RDW 15.1 (12.1-15.1) % Plt Count 248 (130-400) 10^3/c mm MPV 9.7 (7.4-10.4) fL Neut % (Auto) 62.3 % Lymph % (Auto) 27.2 % [place] % (Auto) 8.0 % Eos % (Auto) 1.6 % Baso % (Auto) 0.7 % Neut # (Auto) 3.5 (1.8-7.7) 10^3/u L Lymph # (Auto) 1.5 (0.8-4.8) 10^3/u L [place] # (Auto) 0.5 (0.2-0.9) 10^3/u L Eos # (Auto) 0.1 (0.0-0.8) 10^3/u L Baso # (Auto) 0.0 (0.0-0.1) 10^3/u L Nucleated RBC % (a uto) 0 % Nucleated RBCs # 0.0 /100WBC Sodium 140 (136-145) mmol/L Potassium 3.1 L (3.5-5.1) mmol/L Chloride 103 (98-107) mmol/L Carbon Dioxide 22 (22-29) mmol/L Anion Gap 18.1 (5-19) BUN 10 (8-23) mg/dL Creatinine 0.6 (0.5-0.9) mg/dL Glucose 114 (65-115) mg/dL Calculated Osmolal ity 287 (285-295) mOsm/k g Calcium 9.8 (8.5-10.5) mg/dL Magnesium 1.7 (1.7-2.3) mg/dL Total Bilirubin 0.6 (0.15-1.2) mg/dL AST 34 H (0-32) U/L ALT 32 (0-33) U/L Alkaline Phosphata se 192 H (35-105) IU/L Troponin T Baselin e (0-10) ng/L Total Protein 6.8 (6.6-8.7) g/dL Albumin 4.0 (3.5-5.2) g/dL Globulin 2.8 (1.3-4.6) g/dL Lipase 5 L (13-60) U/L Urine Color (Yellow) Urine Appearance (CLEAR) Urine pH (5-7) Ur Specific Gravit y (1.005-1.030) Urine Protein (Negative) Urine Glucose (UA) (Normal) Urine Ketones (Negative) Urine Blood (Negative) Urine Nitrate (Negative) Urine Bilirubin (NEGATIVE) Urine Urobilinogen (Negative) mg/dL Ur Leukocyte Stephanie ase (Negative) 03/04/20 03/04/20 Range/Units 16:33 19:17 WBC (4.0-10.0) 10^3/ uL RBC (4.1-5.3) 10^6/u L Hgb (11.5-15.3) g/dL Hct (37.0-47.0) % MCV (81-99) fL MCH (28.0-34.0) pg MCHC (30.0-36.0) g/dL RDW (12.1-15.1) % Plt Count (130-400) 10^3/c mm MPV (7.4-10.4) fL Neut % (Auto) % Lymph % (Auto) % [place] % (Auto) % Eos % (Auto) % Baso % (Auto) % Neut # (Auto) (1.8-7.7) 10^3/u L Lymph # (Auto) (0.8-4.8) 10^3/u L [place] # (Auto) (0.2-0.9) 10^3/u L Eos # (Auto) (0.0-0.8) 10^3/u L Baso # (Auto) (0.0-0.1) 10^3/u L Nucleated RBC % (a uto) % Nucleated RBCs # /100WBC Sodium (136-145) mmol/L Potassium (3.5-5.1) mmol/L Chloride (98-107) mmol/L Carbon Dioxide (22-29) mmol/L Anion Gap (5-19) BUN (8-23) mg/dL Creatinine (0.5-0.9) mg/dL Glucose (65-115) mg/dL Calculated Osmolal ity (285-295) mOsm/k g Calcium (8.5-10.5) mg/dL Magnesium (1.7-2.3) mg/dL Total Bilirubin (0.15-1.2) mg/dL AST (0-32) U/L ALT (0-33) U/L Alkaline Phosphata se (35-105) IU/L Troponin T Baselin e 17 H (0-10) ng/L Total Protein (6.6-8.7) g/dL Albumin (3.5-5.2) g/dL Globulin (1.3-4.6) g/dL Lipase (13-60) U/L Urine Color Yellow (Yellow) Urine Appearance Clear (CLEAR) Urine pH 6 (5-7) Ur Specific Gravit y 1.015 (1.005-1.030) Urine Protein Neg (Negative) Urine Glucose (UA) Norm (Normal) Urine Ketones 1+ H (Negative) Urine Blood Neg (Negative) Urine Nitrate Negative (Negative) Urine Bilirubin Neg (NEGATIVE) Urine Urobilinogen 1 H (Negative) mg/dL Ur Leukocyte Stephanie ase Negative (Negative) Imaging Data ^: CXR: Attestation: I personally reviewed and interpreted this imaging study as follows: My impression: Atelectasis in the bases otherwise no acute findings. CT Abd/Pel: Radiologist's impression: [place] [address] CT Scan Report Signed Patient: Amada Metz Unit #: [id number] : 1945 Age/Sex: 74 / F ADM Date: 03/04/20 Loc: ER Room/Bed: Attending Dr: Ordering Provider/Ordering MD: Rodrigo Arteaga NP Date of Service: 03/04/20 Procedure(s): CT abdomen pelvis con [id number] Accession Number(s): [id number] Report Number: [id number] PROCEDURE INFORMATION: Exam: CT Abdomen And Pelvis Without Contrast Exam date and time: 03/04/2020 3:30 PM Age: 74 years old Clinical indication: Nausea and vomiting; Abdominal pain; Prior surgery; Surgery type: Hyst, appy, gb, bile duct stent; Additional info: Abd pain, emesis TECHNIQUE: Imaging protocol: Computed tomography of the abdomen and pelvis without contrast. Radiation optimization: All CT scans at this facility use at least one of these dose optimization techniques: automated exposure control; mA and/or kV adjustment per patient size (includes targeted exams where dose is matched to clinical indication); or iterative reconstruction. COMPARISON: CT abdomen pelvis wo con [id number] 11/11/2019 5:31 PM RADIATION DOSE METRICS: Total DLP (mGy-cm): 390.08 FINDINGS: Lungs: Limited assessment lung bases reveals 4 subcentimeter pulmonary nodules left lower lobe stable since last evaluation the largest measuring 4.6 mm. Liver: Marked and advanced diffuse fatty infiltration of the liver. Mild hepatomegaly. Gallbladder and bile ducts: Status post cholecystectomy. Interval removal of the biliary stent. No visible gross intra or extrahepatic biliary ectasia. Pancreas: The pancreas is atrophic. No visible pancreatic ductal ectasia. Query history of partial pancreatectomy. Spleen: Unremarkable. No splenomegaly. Adrenals: Unremarkable No mass. Kidneys and ureters: Unremarkable. No hydronephrosis. Stomach and bowel: Diverticulosis coli, primarily the sigmoid colon, without visible evidence of active diverticulitis. Nonobstructive bowel pattern. No visible adynamic or reactive ileus. Apparent gastrojejunostomy. Appendix: Status post appendectomy. Intraperitoneal space: No free fluid in the pelvis. No generalized ascites. Vasculature: The abdominal aorta is nonaneurysmal. Moderate arterial sclerotic disease. Lymph nodes: Unremarkable. No enlarged lymph nodes. Bladder: Unremarkable as visualized. Reproductive: Status post hysterectomy. Bones/joints: Dextroscoliosis. Vertebra plana with the appearance of an old burst fracture T8. Advanced degenerative disc disease L2/L3. Osteopenia/osteoporosis. Soft tissues: Unremarkable. CT/CT abdomen pelvis con [id number] IMPRESSION: 1. Nonobstructive bowel pattern. 2. Diverticulosis coli without visible evidence for acute diverticulitis. 3. Marked and advanced diffuse fatty infiltration of the liver with mild hepatomegaly. 4. Postsurgical changes as detailed in text above. 5. Stable small left lower lobe pulmonary nodules. For patients at low risk (minimal or absent history of smoking and of other known risk factors), no routine follow-up is indicated. For patients at high risk (history of smoking or of other known risk factors), consider optional CT at 12 months. (scott Gamez al., Fleischner Society, 2017). Radiation Dose CTDIVOL = (mGy): DLP = 390.08 (mGy-cm) Dictated By: Yury Duenas Signed By: Yury Duenas Signed Date/Time: 03/04/201935 DD/ 33 EKG Data ^: EKG 1: Attestation: I personally reviewed and interpreted this EKG as follows: EKG interpretation date: 03/04/20 EKG interpretation time: 17:17 Interpretation: Normal sinus rhythm at 62 beats a minute, nonspecific ST-T wave changes, incomplete right bundle branch block, left axis deviation, nonspecific ST-T wave changes. Discharge Plan Discharge Patient Disposition: Xfer Short-Term Hosp Clinical Impression: Intractable nausea and vomiting Abdominal pain Qualifiers: Abdominal location: generalized Qualified Code(s): R10.84 - Generalized abdominal pain Condition: Stable Discharge Orders: Transfer Out of Facility (Order); Ordered 03/04/20 Ordered By: Mckenzie Archuleta Referrals: Fiona Henriquez SALES RECORD CLERK [Primary Care Provider] - Patient Instructions: Cholecystitis (ED), Abdominal Pain (ED) Sign Out Sign Out Data: Patient Sign Out occurred on 03/04/20 at 16:23. Patient's care was discussed, and care was transferred from to Mckenzie Archuleta. Coding Level of Care Code ED Corrugated Box Machine Operator for Chg Fwd Exam Comprehensive
--- NOTE | 2020-03-04 15:27 | CTR_ITS ---
PROCEDURE INFORMATION: Exam: CT Abdomen And Pelvis Without Contrast Exam date and time: 03/04/2020 3:30 PM Age: 74 years old Clinical indication: Nausea and vomiting; Abdominal pain; Prior surgery; Surgery type: Hyst, appy, gb, bile duct stent; Additional info: Abd pain, emesis TECHNIQUE: Imaging protocol: Computed tomography of the abdomen and pelvis without contrast. Radiation optimization: All CT scans at this facility use at least one of these dose optimization techniques: automated exposure control; mA and/or kV adjustment per patient size (includes targeted exams where dose is matched to clinical indication); or iterative reconstruction. COMPARISON: CT abdomen pelvis wo con [id number] 11/11/2019 5:31 PM RADIATION DOSE METRICS: Total DLP (mGy-cm): 390.08 FINDINGS: Lungs: Limited assessment lung bases reveals 4 subcentimeter pulmonary nodules left lower lobe stable since last evaluation the largest measuring 4.6 mm. Liver: Marked and advanced diffuse fatty infiltration of the liver. Mild hepatomegaly. Gallbladder and bile ducts: Status post cholecystectomy. Interval removal of the biliary stent. No visible gross intra or extrahepatic biliary ectasia. Pancreas: The pancreas is atrophic. No visible pancreatic ductal ectasia. Query history of partial pancreatectomy. Spleen: Unremarkable. No splenomegaly. Adrenals: Unremarkable No mass. Kidneys and ureters: Unremarkable. No hydronephrosis. Stomach and bowel: Diverticulosis coli, primarily the sigmoid colon, without visible evidence of active diverticulitis. Nonobstructive bowel pattern. No visible adynamic or reactive ileus. Apparent gastrojejunostomy. Appendix: Status post appendectomy. Intraperitoneal space: No free fluid in the pelvis. No generalized ascites. Vasculature: The abdominal aorta is nonaneurysmal. Moderate arterial sclerotic disease. Lymph nodes: Unremarkable. No enlarged lymph nodes. Bladder: Unremarkable as visualized. Reproductive: Status post hysterectomy. Bones/joints: Dextroscoliosis. Vertebra plana with the appearance of an old burst fracture T8. Advanced degenerative disc disease L2/L3. Osteopenia/osteoporosis. Soft tissues: Unremarkable. CT/CT abdomen pelvis wo con [id number] IMPRESSION: 1. Nonobstructive bowel pattern. 2. Diverticulosis coli without visible evidence for acute diverticulitis. 3. Marked and advanced diffuse fatty infiltration of the liver with mild hepatomegaly. 4. Postsurgical changes as detailed in text above. 5. Stable small left lower lobe pulmonary nodules. For patients at low risk (minimal or absent history of smoking and of other known risk factors), no routine follow-up is indicated. For patients at high risk (history of smoking or of other known risk factors), consider optional CT at 12 months. (Vera et al., Fleischner Society, 2017). Radiation Dose CTDIVOL = (mGy): DLP = 390.08 (mGy-cm)
--- NOTE | 2020-03-04 15:28 | XRR_ITS ---
PROCEDURE INFORMATION: Exam: XR Chest, 1 View Exam date and time: 03/04/2020 4:06 PM Age: 74 years old Clinical indication: Other: Vomitting; Additional info: Cxr TECHNIQUE: Imaging protocol: XR of the chest Views: 1 view. COMPARISON: MD Chest 1 [place] [id number] 11/15/2018 5:30 PM FINDINGS: Lungs: Atelectasis right lower lobe. Low lung volumes seen. The lungs are otherwise clear. No consolidation. Pleural space: Unremarkable. No pleural effusion. No pneumothorax. Heart/Mediastinum: Unremarkable. No cardiomegaly. Bones/joints: Unremarkable. . There has been no interval changes compared to prior examination. XR/XR chest 1V portable [id number] IMPRESSION: No acute findings. Low lung volumes Right lower lobe atelectasis
[2020-03-04 15:43] LABS: Basophils % 0.7 %; Eosinophils # 0.1 10^3/uL (0.0-0.8); Eosinophils % 1.6 %; Hematocrit 37.4 % (37.0-47.0); Hemoglobin 11.5 g/dL (11.5-15.3); Lymphocytes # 1.5 10^3/uL (0.8-4.8); Lymphocytes % 27.2 %; Mean Corpuscular HGB Conc 30.7 g/dL (30.0-36.0); Mean Corpuscular Volume 84.4 fL (81-99); Mean Platelet Volume 9.7 fL (7.4-10.4); Monocytes # 0.5 10^3/uL (0.2-0.9); Neutrophils # 3.5 10^3/uL (1.8-7.7); Neutrophils % 62.3 %; Nucleated Red Blood Cells % 0 %; Platelet Count 248 10^3/cmm (130-400); Red Blood Count 4.43 10^6/uL (4.1-5.3); Red Cell Distribution Width 15.1 % (12.1-15.1); White Blood Count 5.6 10^3/uL (4.0-10.0)
[2020-03-04 15:58] LABS: Alanine Aminotransferase 32 U/L (0-33); Alkaline Phosphatase 192 IU/L (35-105); Anion Gap 18.1 (5-19); Aspartate Amino Transferase 34 U/L (0-32); Blood Urea Nitrogen 10 mg/dL (8-23); Calcium 9.8 mg/dL (8.5-10.5); Carbon Dioxide 22 mmol/L (22-29); Chloride 103 mmol/L (98-107); Globulin 2.8 g/dL (1.3-4.6); Glucose 114 mg/dL (65-115); Lipase 5 U/L (13-60); Osmolality Calculated 287 mOsm/kg (285-295); Potassium 3.1 mmol/L (3.5-5.1); Sodium 140 mmol/L (136-145); Total Bilirubin 0.6 mg/dL (0.15-1.2); Total Protein 6.8 g/dL (6.6-8.7)
[2020-03-04] MEDS: lactated ringers 1,000 ML 999 ML IV (16:20)
[2020-03-04] MEDS: metoclopramide 5 mg/mL SDV 2 mL 10 MG IVP (16:21)
[2020-03-04] MEDS: fentaNYL 50 mcg/mL INJ 2mL IVP (16:24)
[2020-03-04 16:51] LABS: Add Urine Microscopic? NO
[2020-03-04 17:03] LABS: Specific Gravity, Urine 1.015 (1.005-1.030); Urine Appearance Clear (CLEAR); Urine Color Yellow (Yellow); pH Urine 6 (5-7)
[2020-03-04 17:04] LABS: Bilirubin Urine Neg (NEGATIVE); Blood Urine Neg (Negative); Glucose Urine UA Norm (Normal); Ketones Urine 1+ (Negative); Leukocyte Esterase Urine Negative (Negative); Nitrate Urine Negative (Negative); Protein Urine Neg (Negative); Urobilinogen Urine 1 mg/dL (Negative)
--- NOTE | 2020-03-04 17:04 | ECG_ITS ---
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 Measurements Intervals [place] Rate: 62 P: 64 CT: 144 QRS: -89 QRSD: 92 T: 52 QT: 343 QTc: 350 Interpretive Statements SINUS RHYTHM LEFT AXIS DEVIATION [QRS AXIS < -30] INCOMPLETE RIGHT BUNDLE BRANCH BLOCK NONSPECIFIC T-WAVE ABNORMALITY Compared to ECG 10/03/2019 15:38:46 Left-axis deviation now present T-wave abnormality now present Ectopic atrial rhythm no longer present Left anterior fascicular block no longer present ST (T wave) deviation no longer present Electronically Signed On 03-04-2020 18:24:25 CDT by Lawanda Bradley M.D. [id number]
[2020-03-04 17:50] LABS: Magnesium 1.7 mg/dL (1.7-2.3)
[2020-03-04] MEDS: ondansetron 2 mg/ML SDV 2 mL 4 MG IVP ×2 (17:50→21:44)
[2020-03-04] MEDS: HYDROmorphone 1 mg/mL INJ 1 mL 0.5 MG IVP ×2 (17:51→21:43)
[2020-03-04 19:53] LABS: Troponin(5th) Baseline 17 ng/L (0-10)
--- NOTE | 2020-03-04 20:18 | ECG_ITS ---
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 Measurements Intervals [place] Rate: 59 P: 52 WA: 148 QRS: 265 QRSD: 92 T: 38 QT: 428 QTc: 427 Interpretive Statements SINUS BRADYCARDIA PATTERN CONSISTENT WITH PULMONARY DISEASE INCOMPLETE RIGHT BUNDLE BRANCH BLOCK [90+ ms QRS DURATION, TERMINAL R IN V1/V2, 40+ ms S IN I/aVL/V4/V5/V6] RIGHT VENTRICULAR HYPERTROPHY [SOME/ALL OF: PROMINENT R IN V1, LATE TRANSITION, RAD, HAMLET, SSS].MODERATE T-WAVE ABNORMALITY, CONSIDER ANTERIOR ISCHEMIA [-0.1+ mV T WAVE INV3/V4] Compared to ECG 03/04/2020 17:17:59 Atrial abnormality now present Right ventricular hypertrophy now present Possible ischemia now present Sinus rhythm no longer present Left-axis deviation no longer present T-wave abnormality still present Electronically Signed On 03-06-2020 0:00:10 CDT by Madhu Chen M.D. [id number]
--- NOTE | 2020-03-04 23:17 | PC.NURSE ---
Report called to Gisella DUMONT at [facility]
[2020-03-05 00:20] LABS: Troponin 5 2HR 17.38 ng/L (0-10); Troponin 5 2HR Delta 0.38 ABS# (0-10)
[2020-03-05 00:21] VITALS: RESP 18
[2020-03-05] MEDS: HYDROmorphone 1 mg/mL INJ 1 mL 2 MG IVP (00:21)
[2020-03-05 00:33] VITALS: BP 138/80; PULSE 67; RESP 18
== END 2020-03-05 00:35 | disposition short-term general hospital (02) ==
PROVIDERS: Nurse Practitioner Family; Emergency Provider Emergency Medicine; PCP Nurse Practitioner Primary Care
DX: R10.84 Generalized abdominal pain (principal); R11.2 Nausea with vomiting, unspecified; Z85.07 Personal history of malignant neoplasm of pancreas; Z90.410 Acquired total absence of pancreas
CPT/HCPCS: 12345; 36415; 71045; 74176; 80053; 81003; 83690; 83735; 84484; 85025; 93005; 96360; 96365; 96366; 96367; 96375; 96376; 99284; 99285; J1170; J2405; J2765; J3010; J3480

== ENCOUNTER 2020-04-12 10:51 | Observation (INO) | payer MEDICAID, SELFPAY ==
[2020-04-12] VITALS (11 sets, daily range): BP systolic 144–175; BP diastolic 72–102; PULSE 57–83; RESP 15–23; TEMP 36.8–37; O2SAT 94–99; BMI 20.5
--- NOTE | 2020-04-12 11:16 | ECG_ITS ---
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 Measurements Intervals [place] Rate: 67 P: [place]: -1 QRS: 263 QRSD: 93 T: 49 QT: 410 QTc: 435 Interpretive Statements Sinus rhythm PATTERN CONSISTENT WITH PULMONARY DISEASE INCOMPLETE RIGHT BUNDLE BRANCH BLOCK [90+ ms QRS DURATION, TERMINAL R IN V1/V2, 40+ ms S IN I/aVL/V4/V5/V6] RIGHT VENTRICULAR HYPERTROPHY [SOME/ALL OF: PROMINENT R IN V1, LATE TRANSITION, RAD, HAMLET, SSS] Compared to ECG 03/04/2020 19:17:27 Sinus bradycardia no longer present T-wave abnormality no longer present Possible ischemia no longer present Electronically Signed On 04-12-2020 16:05:27 CDT by Mark Prince M.D. [id number]
--- NOTE | 2020-04-12 11:33 | CT_ITS ---
WS: [id number] CT ABDOMEN PELVIS TECHNIQUE: Noncontrast CT of the abdomen and pelvis with coronal and sagittal reformatted images. CLINICAL INFORMATION: Abdominal pain COMPARISON: CT March 04, 2020, March 01, 2020. November 11, 2019 October 05, 2019 September 25, 2019 DLP: 305.[address] scans at [facility] use at least one of these dose optimization techniques: automat ed exposure control; mA and/or kV adjustment per patient size (includes targeted exams where dose is matched to clinical indication); or iterative reconstruction. FINDINGS: Hepatomegaly with diffuse fatty infiltration. Prior postoperative changes cholecystectomy. Prior hyst erectomy. History of bile duct stent removal with postoperative changes edith hepatis. Diffuse fatty atrophy of the pancreas. Normal spleen. Normal caliber abdominal aorta. Aortic calcification. Adrenal glands are normal. No hydronephrosis in either kidney. Diverticulosis. No evidence of acute diverticulitis. No evidence of high-grade small or large bowel obstruction. Postoperative changes involving the distal stomach and small bowel mid abdomen. Lumbar scoliosis convex right. A few small noncalcified pulmonary nodules in the left lower lobe measuring up to 5 mm. Additional 3 mm nodule right middle lobe. These are unchanged from previous. Notified Mckenzie Archuleta at 04/12/2020 2:[address]/CT abdomen pelvis wo con [id number] IMPRESSION: 1. Postoperative changes suggestive of prior Whipple procedure with diffuse at rophy of the pancreas 2. History of prior bowel duct stent removal 3. Hepatomegaly with diffuse infiltration. 4. Prior cholecystectomy with bile duct stent removal. This is unchanged in ap pearance from previous. 5. No hydronephrosis in either kidney. No obstructing renal or ureteral calcul i. 6. No evidence of small or large bowel obstruction. No free fluid in the abdom en or pelvis. 7. Small noncalcified nodules in the lung bases is unchanged from previous. 8. Chronic appearing compression fractures in the lower thoracic spine T8 T9 T 10 with anterior wedging unchanged from previous.
--- NOTE | 2020-04-12 11:41 | PC.NURSE ---
INFROMED DR. DICKENS OF 3 ATTEMPTS TO OBTAIN IV ACCESS WITHOUT SUCCESS. VO WITH READ BACK TO CONTINUE TO ATTEMPT INFORMED CHARGE NURSE BRIGIDO DUMONT IN ROOM ATTEMPTING IV ACCESS.
[2020-04-12] MEDS: sodium chloride 0.9% 1,000 ML 100 ML IV (12:30)
[2020-04-12] MEDS: HYDROmorphone 1 mg/mL INJ 1 mL IVP ×2 (12:30→13:41)
[2020-04-12] MEDS: ondansetron 2 mg/ML SDV 2 mL 4 MG IVP ×2 (12:30→16:07)
[2020-04-12] MEDS: sodium chloride 0.9% 1,000 ML 999 ML IV (12:41)
[2020-04-12 13:03] LABS: Bilirubin Urine Neg (NEGATIVE); Blood Urine 1+ (Negative); Glucose Urine UA Norm (Normal); Ketones Urine 1+ (Negative); Nitrate Urine Negative (Negative); Protein Urine Neg (Negative); Specific Gravity, Urine 1.025 (1.005-1.030); Urine Appearance Cloudy (CLEAR); Urine Color Yellow (Yellow)
[2020-04-12 13:04] LABS: Add Urine Culture? No; Bacteria Urine 2+; Calcium Oxalate Crystals Urine 25-40 /hpf; Leukocyte Esterase Urine 1+ (Negative); Mucus Urine 1+; RBC Urine 0-4 /hpf (0-2); Squamous Epithelial Cell Urine 40-55 (0-5); Urobilinogen Urine 1 mg/dL (Negative); WBC Urine 0-4 /hpf (0-5)
--- NOTE | 2020-04-12 13:07 | ED_ITS ---
HPI - Abdominal Pain General: Chief Complaint: Nausea/Vomiting/Diarrhea Stated Complaint: nausea, vomiting, abd pain Source: patient Mode of arrival: ambulatory Limitations: no limitations History of Present Illness: HPI narrative: Amada is a 74-year-old female who comes in complaining of abdominal pain. Patient is a poor historian secondary to cooperation. This is believed to be secondary to pain. Patient states she has diffuse abdominal pain that started this morning. She is nauseated but she tries to vomit and nothing will come up. She denies any fevers or chills. Denies any chest pain or shortness of breath. She is unaware of any aggravating or alleviating factors. Patient states that she has had her gallbladder, appendix and uterus removed surgically. Per review of chart patient has a history of pancreatic cancer with pancreatic resection that is partial and a pancreatic stent placed. Patient did not relate this to me. Patient states when asked a second time and states that she is not yet seen an oncologist to start treatment for presumed pancreatic cancer. Patient's details are sketchy and conflicting. She is deemed a poor historian. Associated Symptoms: Reports nausea; Denies chills, coffee ground emesis, constipation, GI cramping, diarrhea, dysuria, fever(s), heartburn, hematochezia, hematuria, hematemesis, melena, syncope and vomiting Review of Systems Const: Denies: fever(s), chills, body aches, fatigue, malaise or diaphoresis Eyes: Denies: change in vision, blurry vision, blind spots, photophobia, eye discharge or eye redness ENMT: Denies: throat pain, odynophagia, hoarseness, swelling of lips/tongue, oral sores, ear or mastoid pain, ear discharge, change in hearing or nasal discharge Card: Denies: chest pain, palpitations, irregular heart rhythm, edema, lightheadedness, syncope, pre-syncope, dyspnea on exertion or orthopnea Resp: Denies: dyspnea, productive cough, non-productive cough, wheezing, hemoptysis or chest congestion GI: Reports: abdominal pain and nausea; Denies: vomiting, hematemesis, coffee ground emesis, heartburn, diarrhea, constipation, GI cramping, hematochezia or melena : Denies: flank pain, dysuria, urinary frequency, urinary urgency or hematuria Musc: Denies: neck pain, back pain, extremity pain, extremity swelling, joint pain, joint swelling, joint redness, joint warmth or joint stiffness Skin/Breast: Denies: rash, pruritus, erythema, skin tenderness or jaundice Neuro: Denies: headache(s), numbness in extremities, weakness in extremities, sensory changes, lack of coordination, difficulty walking, dizziness, vertigo, confusion, Slurred speech present or seizure-like activity Ariel/Lymph: Denies: easy bruising, easy bleeding, petechiae, purpura or enlarged lymph nodes All/Imm: Denies: urticaria, throat swelling, tongue swelling, facial swelling or acute wheezing PFSH ED PFSH: Medical History (Updated 04/12/20 @ 15:22 by Mckenzie Archuleta) GERD (gastroesophageal reflux disease) Hepatitis C Hypertension Hypothyroidism Pancreatic cancer Pancreatic mass Surgical History H/O resection of pancreas H/O: hysterectomy History of biliary duct stent placement S/P appendectomy S/P cholecystectomy Family History Other CAD (coronary artery disease) Social History Smoking and tobacco status: never smoked Alcohol intake: never Physical Exam Const: COMMON NORMALS: no acute distress, patient oriented x3, no limitations, healthy appearing and well nourished GENERAL APPEARANCE: cooperative, well kempt and well developed HENMT: COMMON NORMALS: normocephalic, atraumatic, external ears normal, EAC's normal and Normal external nose present HEAD & SCALP: normal to inspection, normocephalic and atraumatic FACE & SINUS: normal facial exam and face symmetric NOSE: Normal external nose present and Normal nares present EXTERNAL EAR: Yes external ears normal EXTERNAL AUDITORY CANAL: EAC's normal MOUTH: Normal oral and palatal mucosa present, lip normal and tongue normal Eye: COMMON NORMALS: Equal, round and reactive pupils present and conjunctivae normal GENERAL EYE: appearance normal, both eyes and all related structures ALIGNMENT: Yes alignment normal PERIORBITAL: periorbital findings normal EYELID: eyelids normal CONJUNCTIVA: Yes conjunctivae normal SCLERA: sclerae normal PUPIL: Yes Equal, round and reactive pupils present Neck/C-Spine: COMMON NORMALS: full ROM, no lymphadenopathy, supple, no meningeal signs and no JVD GENERAL: Yes normal visual inspection and Yes trachea midline Chest: COMMONS NORMALS: normal inspection of the chest and normal palpation of entire chest wall Resp: COMMON NORMALS: normal respiratory effort, No retractions and No use of accessory muscles EFFORT & INSPECTION: Yes able to speak in complete sentences and Yes symmetric chest movement AUSCULTATION: no crackles, no rales, no rhonchi and no wheezes Cardio: COMMON NORMALS: no JVD, regular rate, regular rhythm, S1 normal heart sound present and S2 normal heart sound present RATE: regular rate RHYTHM: regular rhythm HEART SOUNDS: S1 normal heart sound present, S2 normal heart sound present, no click, no gallops, no murmurs, no rubs and abnormal split S2 GI: COMMON NORMALS: Soft to palpation and No hepatosplenomegaly present PALPATION: Yes Soft to palpation, Yes Tenderness to palpation present (GI) (Moderate diffusely without rebound or guarding.), No Guarding due to palpation present (GI), No Rigid due to palpation, Yes No hepatosplenomegaly present, No Hernia present, No Palpable mass present and No Pulsatile mass present : COMMON NORMALS: Yes no CVA tenderness BLADDER/KIDNEY EXAM: Yes no CVA tenderness EXTERNAL FEMALE EXAM: No Hernia present Back/Pelvis: COMMON NORMALS: no CVA tenderness, thoracic and lumbar spine normal to inspection, no thoracic nor lumbar tenderness and thoraco-lumbar ROM normal Extremity: COMMON NORMALS: normal to inspection, full ROM, capillary refill normal, no joint enlargement, no clubbing, cyanosis or edema and no calf tenderness Neuro: COMMON NORMALS: patient oriented x3, CN's II-XII intact bilaterally, moves all extremities, no focal motor deficits and no sensory deficits noted MENINGEAL SIGNS: Yes no meningeal signs SPEECH: speech normal Psych: COMMON NORMALS: mental status grossly normal, Normal thought process present, cooperative, normal affect, speech normal and activity/motor behavior normal APPEARANCE: Yes well kempt SPEECH: Yes normal speech THOUGHT PROCESS: Normal thought process present Skin: COMMON NORMALS: no rashes or lesions noted, turgor normal, no jaundice, no petechiae and no mottling GENERAL SKIN EXAM: no rashes or lesions noted and turgor normal Course Vital Signs: Vital signs: Vital Signs Temperature 98.4 F 04/12/20 10:52 Pulse Rate 57 L 04/12/20 15:00 Respiratory Rate 23 H 04/12/20 15:00 Blood Pressure 162/101 04/12/20 15:00 Pulse Oximetry 97 04/12/20 15:00 MDM - Abdominal Pain MDM Narrative: Medical decision making narrative: The case was reviewed with Dr. Helms, he agrees to admit for further evaluation and care. At this time the patient is stable. Further care be dictated on the floor. Patient comes in with intractable nausea and vomiting. She has a history of pancreatic cancer. The patient has a poor social situation and it is uncertain why she is had no cancer care or care at all since February. Patient I believe will need to be admitted and her social situation along with her cancer care will need to be sorted out. Further care can be dictated on the floor. Medical Records: Attestation: I reviewed the patient's medical records. Medical records narrative: Oncology note from March 042019 reviewed. Lab Data: Attestation: I reviewed the patient's lab results. Labs: Lab Results 04/12/20 04/12/20 04/12/20 Range/Units 11:11 12:50 12:50 WBC 5.5 (4.0-10.0) 10^3/ uL RBC 4.32 (4.1-5.3) 10^6/u L Hgb 10.7 L (11.5-15.3) g/dL Hct 34.0 L (37.0-47.0) % MCV 78.7 L (81-99) fL MCH 24.8 L (28.0-34.0) pg MCHC 31.5 (30.0-36.0) g/dL RDW 18.1 H (12.1-15.1) % Plt Count 345 (130-400) 10^3/c mm MPV 9.9 (7.4-10.4) fL Neut % (Auto) 67.0 % Lymph % (Auto) 24.8 % [place] % (Auto) 5.8 % Eos % (Auto) 0.7 % Baso % (Auto) 1.3 % Neut # (Auto) 3.68 (1.8-7.7) 10^3/u L Lymph # (Auto) 1.4 (0.8-4.8) 10^3/u L [place] # (Auto) 0.3 (0.2-0.9) 10^3/u L Eos # (Auto) 0.0 (0.0-0.8) 10^3/u L Baso # (Auto) 0.1 (0.0-0.1) 10^3/u L Nucleated RBC % (a uto) 0 % Nucleated RBCs # 0.0 /100WBC Sodium 133 L (136-145) mmol/L Potassium 3.4 L (3.5-5.1) mmol/L Chloride 105 (98-107) mmol/L Carbon Dioxide 15 L (22-29) mmol/L Anion Gap 16.4 (5-19) BUN 13 (8-23) mg/dL Creatinine 0.6 (0.5-0.9) mg/dL GFR Calculation Not Reportable Glucose 135 H (65-115) mg/dL Calculated Osmolal ity 274 L (285-295) mOsm/k g Lactic Acid (0.5-2.2) mmol/L Calcium 9.1 (8.5-10.5) mg/dL Magnesium 1.7 (1.7-2.3) mg/dL Total Bilirubin 0.8 (0.15-1.2) mg/dL AST 91 H (0-32) U/L ALT 74 H (0-33) U/L Alkaline Phosphata se 238 H (35-105) IU/L Troponin T Baselin e (0-10) ng/L Troponin T 120 Min [place] Troponin T Total Protein 6.6 (6.6-8.7) g/dL Albumin 3.8 (3.5-5.2) g/dL Globulin 2.8 (1.3-4.6) g/dL Lipase 3 L (13-60) U/L Urine Color Yellow (Yellow) Urine Appearance Cloudy (CLEAR) Urine pH 5.0 (5-7) Ur Specific Gravit y 1.025 (1.005-1.030) Urine Protein Neg (Negative) Urine Glucose (UA) Norm (Normal) Urine Ketones 1+ H (Negative) Urine Blood 1+ H (Negative) Urine Nitrate Negative (Negative) Urine Bilirubin Neg (NEGATIVE) Urine Urobilinogen 1 H (Negative) mg/dL Ur Leukocyte Stephanie ase 1+ H (Negative) Urine RBC 0-4 H (0-2) /hpf Urine WBC 0-4 H (0-5) /hpf Ur Squamous Epith Cells 40-55 H (0-5) Calcium Oxalate Cr ystal 25-40 H /hpf Amorphous Sediment Not Reportable Urine Bacteria 2+ H (NONE) Urine Mucus 1+ 04/12/20 04/12/20 04/12/20 Range/Units 12:50 12:50 14:59 WBC (4.0-10.0) 10^3/ uL RBC (4.1-5.3) 10^6/u L Hgb (11.5-15.3) g/dL Hct (37.0-47.0) % MCV (81-99) fL MCH (28.0-34.0) pg MCHC (30.0-36.0) g/dL RDW (12.1-15.1) % Plt Count (130-400) 10^3/c mm MPV (7.4-10.4) fL Neut % (Auto) % Lymph % (Auto) % [place] % (Auto) % Eos % (Auto) % Baso % (Auto) % Neut # (Auto) (1.8-7.7) 10^3/u L Lymph # (Auto) (0.8-4.8) 10^3/u L [place] # (Auto) (0.2-0.9) 10^3/u L Eos # (Auto) (0.0-0.8) 10^3/u L Baso # (Auto) (0.0-0.1) 10^3/u L Nucleated RBC % (a uto) % Nucleated RBCs # /100WBC Sodium (136-145) mmol/L Potassium (3.5-5.1) mmol/L Chloride (98-107) mmol/L Carbon Dioxide (22-29) mmol/L Anion Gap (5-19) BUN (8-23) mg/dL Creatinine (0.5-0.9) mg/dL GFR Calculation Glucose (65-115) mg/dL Calculated Osmolal ity (285-295) mOsm/k g Lactic Acid 1.2 (0.5-2.2) mmol/L Calcium (8.5-10.5) mg/dL Magnesium (1.7-2.3) mg/dL Total Bilirubin (0.15-1.2) mg/dL AST (0-32) U/L ALT (0-33) U/L Alkaline Phosphata se (35-105) IU/L Troponin T Baselin e 16 H (0-10) ng/L Troponin T 120 Min [place] C[place] Troponin T Cancelled Total Protein (6.6-8.7) g/dL Albumin (3.5-5.2) g/dL Globulin (1.3-4.6) g/dL Lipase (13-60) U/L Urine Color (Yellow) Urine Appearance (CLEAR) Urine pH (5-7) Ur Specific Gravit y (1.005-1.030) Urine Protein (Negative) Urine Glucose (UA) (Normal) Urine Ketones (Negative) Urine Blood (Negative) Urine Nitrate (Negative) Urine Bilirubin (NEGATIVE) Urine Urobilinogen (Negative) mg/dL Ur Leukocyte Stephanie ase (Negative) Urine RBC (0-2) /hpf Urine WBC (0-5) /hpf Ur Squamous Epith Cells (0-5) Calcium Oxalate Cr ystal /hpf Amorphous Sediment Urine Bacteria (NONE) Urine Mucus EKG Data ^: EKG 1: Attestation: I personally reviewed and interpreted this EKG as follows: EKG interpretation date: 04/12/20 EKG interpretation time: 11:27 Interpretation: Normal sinus rhythm at 67 beats a minute, nonspecific ST and T wave changes. EKG 2: Attestation: I personally reviewed and interpreted this EKG as follows: EKG interpretation date: 04/12/20 EKG interpretation time: 13:07 Interpretation: Sinus bradycardia at 54 beats a minute, nonspecific ST and T wave changes. Discharge Plan Discharge Patient Disposition: Placed in Observation Clinical Impression: Intractable vomiting Qualifiers: Vomiting type: unspecified Nausea presence: with nausea Qualified Code(s): R11.2 - Nausea with vomiting, unspecified Abdominal pain Qualifiers: Abdominal location: generalized Qualified Code(s): R10.84 - Generalized abdominal pain Condition: Stable Referrals: Fiona Henriquez FNP [Primary Care Provider] - Coding Level of Care Code ED Steam Box Operator for g Fwd Exam Comprehensive
[2020-04-12 13:10] LABS: Basophils # 0.1 10^3/uL (0.0-0.1); Basophils % 1.3 %; Eosinophils % 0.7 %; Hemoglobin 10.7 g/dL (11.5-15.3); Lymphocytes # 1.4 10^3/uL (0.8-4.8); Lymphocytes % 24.8 %; Mean Corpuscular HGB Conc 31.5 g/dL (30.0-36.0); Mean Corpuscular Hemoglobin 24.8 pg (28.0-34.0); Mean Corpuscular Volume 78.7 fL (81-99); Mean Platelet Volume 9.9 fL (7.4-10.4); Monocytes # 0.3 10^3/uL (0.2-0.9); Monocytes % 5.8 %; Neutrophils # 3.68 10^3/uL (1.8-7.7); Nucleated Red Blood Cells % 0 %; Platelet Count 345 10^3/cmm (130-400); Red Blood Count 4.32 10^6/uL (4.1-5.3); Red Cell Distribution Width 18.1 % (12.1-15.1); White Blood Count 5.5 10^3/uL (4.0-10.0)
[2020-04-12 13:13] LABS: Lactic Sepsis W/Reflex 1.2 mmol/L (0.5-2.2)
[2020-04-12 13:15] LABS: Alanine Aminotransferase 74 U/L (0-33); Albumin Level 3.8 g/dL (3.5-5.2); Alkaline Phosphatase 238 IU/L (35-105); Anion Gap 16.4 (5-19); Aspartate Amino Transferase 91 U/L (0-32); Blood Urea Nitrogen 13 mg/dL (8-23); Calcium 9.1 mg/dL (8.5-10.5); Carbon Dioxide 15 mmol/L (22-29); Chloride 105 mmol/L (98-107); Globulin 2.8 g/dL (1.3-4.6); Glucose 135 mg/dL (65-115); Lipase 3 U/L (13-60); Magnesium 1.7 mg/dL (1.7-2.3); Osmolality Calculated 274 mOsm/kg (285-295); Potassium 3.4 mmol/L (3.5-5.1); Sodium 133 mmol/L (136-145); Total Bilirubin 0.8 mg/dL (0.15-1.2); Total Protein 6.6 g/dL (6.6-8.7)
--- NOTE | 2020-04-12 13:16 | ECG_ITS ---
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 Measurements Intervals [place] Rate: 54 P: 24 OK: 132 QRS: -85 QRSD: 101 T: 34 QT: 390 QTc: 372 Interpretive Statements SINUS BRADYCARDIA PATTERN CONSISTENT WITH PULMONARY DISEASE INCOMPLETE RIGHT BUNDLE BRANCH BLOCK [90+ ms QRS DURATION, TERMINAL R IN V1/V2, 40+ ms S IN I/aVL/V4/V5/V6] LEFT ANTERIOR FASCICULAR BLOCK [QRS AXIS <= -45, QR IN I, RS IN II] Compared to ECG 04/12/2020 11:27:31 Left anterior fascicular block now present Atrial fibrillation no longer present Atrial abnormality no longer present Right ventricular hypertrophy no longer present Electronically Signed On 04-12-2020 16:19:47 CDT by Mark Prince M.D. [id number]
[2020-04-12 13:17] LABS: Troponin(5th) Baseline 16 ng/L (0-10)
--- NOTE | 2020-04-12 13:48 | PC.NURSE ---
pc from [place] daughter in law. informed pt stated that i could update pt on condition and tx.
--- NOTE | 2020-04-12 13:53 | US_ITS ---
WS: [id number] INDICATION: Right antecubital IV needle placement TECHNIQUE: Ultrasound right antecubital for access FINDINGS: Right antecubital IV needle placement. US/CV guide vascular access [id number] IMPRESSION: Ultrasound used for vascular access
[2020-04-12] MEDS: potassium chloride premix 40 MEQ/100 ML PREMIX 25 MEQ IV (14:58)
--- NOTE | 2020-04-12 15:39 | PC.NURSE ---
attempted report nurse unavailable.
[2020-04-12 15:50] LABS: Troponin 5 2HR 17.78 ng/L (0-10); Troponin 5 2HR Delta 1.78 ABS# (0-10)
[2020-04-12] MEDS: dextrose 5%-sod chloride 0.45% 1,000 ML 100 ML IV (16:06)
--- NOTE | 2020-04-12 16:12 | P.HP_ITS ---
Documented by User: Angélicashaka Robb [facility] 04/12/20 19:28 Providers/Chief Complaint Admitting Physician: Pavan Dubose Primary Care Provider: Fiona Henriquez Chief Complaint: nausea, vomiting, abd pain History of Present Illness Amada Metz is a 74 year old female who presents to the ED with a chief concern of nausea, vomiting, and abdominal pain. She has a significant past medical history of pancreatic head mass status post biliary stent placement in September 2019, pancreatic mass resection December 2019, and hypothyroidism. The pat ient states that she has severe abdominal pain that began this morning, accompanied by significant nausea and vomiting. Patient indicates that the pain is poorly localized near the epigastrium. Patient reports that she vomits mostly what she eats, occasionally with bilious vomiting. Patient has been having recurrent abdominal pain, nausea, and vomiting and was admitted in February for a similar presentation. Patient was evaluated with MRCP for closer assessment to rule out CBD obstruction/dilation. At that time patient improved with conservative treatment and was advised to eat slower, with smaller bites because it was observed that she was eating quickly with large bites. Patient states that she has been doing this and has not noticed improvement. Patient follows up with oncology and had an appointment on 04/02, at which time she was presenting with abdominal pain and oncologist was considering bowel obstruction or ileus. Patient also reports chest pain that she describes as pressure across her entire chest, shoulders, and arms. This began yesterday. Patient states that she has a history of NE, but was unable to answer if any stent placement had occurred. Patients nausea/vomiting/abdominal pain began this morning while patient was out for breakfast. She describes being unable to eat this morning and taking her food to go. Patient reports some diffuse muscle pain and fatigue. Patient also reports a history of hep C but expressed that she had been treated. Patient denies fever, SOB, cough, diarrhea, melena, hematochezia, hematemesis, or urinary symptoms. Patient denies any significant dietary changes in the last few days. In the ER, her hgb was 10.7, WBC 5.5, Na 133, K 3.4, bicarb 15, AST/ALT elevated at 91/74, and alkaline phosphatase at 238. Her alkaline phosphatase has continued to rise since her last admission. UA was a contaminated sample.CT abdomen was done and showed hepatomegaly with diffuse infiltration, as well as diffuse pancreatic atrophy. Review of Systems Const: Reports: body aches and fatigue; Denies: fever(s) Card: Reports: chest pain; Denies: palpitations, dyspnea on exertion or orthopnea Resp: Denies: dyspnea, productive cough or non-productive cough GI: Reports: abdominal pain, nausea and vomiting; Denies: hematemesis, coffee ground emesis, diarrhea, constipation, hematochezia or melena : Denies: difficulty voiding, dysuria, urinary frequency or urinary urgency Skin/Breast: Denies: rash Medications/Allergies Home Medications Medication Instructions Recorded Confirmed Last Taken Type cetirizine 10 mg PO DAILY 09/25/19 04/12/20 04/11/20 History levothyroxine 88 mcg PO DAILY 09/25/19 04/12/20 04/11/20 History omeprazole 40 mg PO DAILY 09/25/19 04/12/20 04/11/20 History trazodone 150 mg PO BEDTIME PRN 09/25/19 04/12/20 04/11/20 History tramadol 50 mg PO DAILY 14 Days #14 tab 11/12/19 04/12/20 04/11/20 Rx duloxetine 30 mg PO DAILY 02/27/20 04/12/20 04/11/20 History ondansetron 4 mg PO Q6H PRN #14 tab 02/28/20 04/12/20 Unknown Rx oxycodone 10 mg PO Q8H PRN #20 tab 02/28/20 04/12/20 03/03/20 Rx rekqua-svdjxxae-kuipvrc [Zenpep] 1 ea PO TIDWM #30 cap 03/03/20 04/12/20 04/11/20 Rx sucralfate 1 g PO AC&BEDTIME #100 ml 03/03/20 04/12/20 04/11/20 Rx Allergies Allergy/AdvReac Type Severity Reaction Status Date / Time gabapentin Allergy Unknown Verified 04/12/20 10:56 morphine Allergy Unknown Verified 04/12/20 10:56 pregabalin [From Lyrica] Allergy Unknown Verified 04/12/20 10:56 PFSH Acute PFSH: Medical History GERD (gastroesophageal reflux disease) Hepatitis C Hypertension Hypothyroidism Pancreatic cancer Pancreatic mass Surgical History H/O resection of pancreas H/O: hysterectomy History of biliary duct stent placement S/P appendectomy S/P cholecystectomy Family History Other CAD (coronary artery disease) Social History Smoking and tobacco status: never smoked Alcohol intake: never Vitals/I&O/Wt Last Vital Signs Temp 98.4 F 04/12/20 10:52 Pulse 60 04/12/20 15:30 Resp 20 H 04/12/20 15:30 BP 163/76 04/12/20 15:30 Pulse Ox 94 04/12/20 15:30 Weight last 48 hrs Weight 120 lb Physical Exam Narrative: EXAM NARRATIVE: Exam performed by Dr. Dubose Data : 04/12/20 12:50 04/12/20 12:50 A&P Assessment and plan (1) Abdominal pain: Patient is afebrile without leukocytosis. Lactate is normal. Vitals within normal range, so sepsis is unlikely. Patient has an extensive history of abdominal surgeries, so recurrent abdominal pain could represent peritoneal adhesion. Patient had no tenderness or guarding on exam and CT abdomen did not show acute findings, so bowel obstruction, ischemia, or perforation from adhesions is unlikely. CT showed stable postoperative findings, no evidence of abscess. Patient reports diffuse chest pain prior to onset of nausea and vomiting and has a potential history of NE. Current presentation could represent atypical presentation of acute myocardial infarction. ECG showed sinus rhythm with occasional premature ventricular contractions and evidence of RVH. Troponin ordered. Initial troponin was slightly elevated at 16. Continue to evaluate. History of pancreatic cancer with atrophic pancreas on CT, epigastric pain, and nausea/vomiting could represent acute on chronic pancreatitis. Not likely to see elevations in amylase/lipase due to atrophy. No evidence of calcifications on CT which would be more indicative of chronic pancreatitis, but atrophy is present. Patient will be made n.p.o. for bowel rest and given fluids. Patient has a history of GERD and current episode could represent acute gastritis. Patient denies any cough or hemoptysis. Patient is continued on home dose of 40 mg Omeprazole. Denies NSAID use. If epigastric pain persists, consider EGD evaluation. Continue home dose of tramadol. Acetaminophen given PRN. Status: Acute Qualifiers: Abdominal location: generalized Qualified Code(s): R10.84 - Generalized abdominal pain (2) Vomiting: Likely associated with abdominal pain as described above. Chance of brain metastases from pancreatic cancer. Non-contrast CT of head ordered to evaluate. Continue zofran for nausea/vomiting as needed. Status: Acute (3) Hepatitis C: Hepatomegaly is evident on CT abdomen and pelvis Patient reports that she was treated for HCV, but was vague when asked when this treatment had occurred. Due to hepatomegaly and abdominal pain, as well as elevated AST/ALT, it might be beneficial to evaluate her HCV antibodies and viral load. Should there be evidence of chronic HCV, recommend outpatient HCV treatment. Status: Acute (4) Hypothyroidism: TSH evaluated a month ago was elevated, with normal T4 and and T3. Unclear cause, but could represent malabsorption or medication noncompliance. Ordered TSH, free T4. Continue levothyroxine. Status: Acute (5) History of biliary duct stent placement: Status: Acute (6) Pancreatic cancer: As described above, patient underwent Whipple procedure in December 2019. Current presentation could be related to pancreatic resection or to potential brain metastases. Needs follow-up with oncology for initiation of chemotherapy. Continue Zenpep for pancreatic enzyme supplementation. Status: Acute (7) Hypertension: BP is stable at 144/86. Continue to monitor. Status: Acute (8) GERD (gastroesophageal reflux disease): Continue omeprazole. Status: Acute Additional A&P Information Patient expressed that she would like everything done to keep her alive in the event of a code. Patient was informed that best efforts for resuscitation in the event of a code may be unsuccessful due to her comorbid conditions. Patient acknowledged this and would like to remain a full code. Given increased alkaline phosphate and potential seroma on previous admission, consider repeat imaging for evidence of surgical complication post pancreatic resection if condition does not improve. CT on admission showed stable postoperative findings. Anemia Hgb of 10.7 with MCV 78 and RDW 18 No signs of active bleed. Fecal occult blood ordered to evaluate. Iron deficiency noted on February admission. Iron supplementation. Depression/Anxiety Patient reports that she no longer takes duloxetine. Continue trazodone. Due to history of pancreatic cancer, recurrent nausea and vomiting could re present brain metastases. Non-contrast CT was ordered to evaluate. Full code. Patient is n.p.o. DVT prophylaxis with Lovenox. Attestations Medical Necessity Statement*: Placed on observation. Coding Level of Care Code Acute Career Guidance Counselor for Chg Fwd Diagnoses Abdominal pain R10.84 Abdominal location: generalized Vomiting R11.10 Hepatitis C B19.20 Hypothyroidism E03.9 History of biliary duct stent placement Z98.890 Pancreatic cancer C25.9 Hypertension I10 GERD (gastroesophageal reflux disease) K21.9 Documented by User: Pavan Dubose MD 04/12/20 19:54 Providers/Chief Complaint Chief Complaint: nausea, vomiting, abd pain Medications/Allergies Home Medications Medication Instructions Recorded Confirmed Last Taken Type cetirizine 10 mg PO DAILY 09/25/19 04/12/20 04/11/20 History levothyroxine 88 mcg PO DAILY 09/25/19 04/12/20 04/11/20 History omeprazole 40 mg PO DAILY 09/25/19 04/12/20 04/11/20 History trazodone 150 mg PO BEDTIME PRN 09/25/19 04/12/20 04/11/20 History tramadol 50 mg PO DAILY 14 Days #14 tab 11/12/19 04/12/20 04/11/20 Rx duloxetine 30 mg PO DAILY 02/27/20 04/12/20 04/11/20 History ondansetron 4 mg PO Q6H PRN #14 tab 02/28/20 04/12/20 Unknown Rx oxycodone 10 mg PO Q8H PRN #20 tab 02/28/20 04/12/20 03/03/20 Rx czqqix-bjfklqgf-dctdrlu [Zenpep] 1 ea PO TIDWM #30 cap 03/03/20 04/12/20 04/11/20 Rx sucralfate 1 g PO AC&BEDTIME #100 ml 03/03/20 04/12/20 04/11/20 Rx Allergies Allergy/AdvReac Type Severity Reaction Status Date / Time gabapentin Allergy Unknown Verified 04/12/20 10:56 morphine Allergy Unknown Verified 04/12/20 10:56 pregabalin [From Lyrica] Allergy Unknown Verified 04/12/20 10:56 PFSH Acute PFSH: Medical History GERD (gastroesophageal reflux disease) Hepatitis C Hypertension Hypothyroidism Pancreatic cancer Pancreatic mass Surgical History H/O resection of pancreas H/O: hysterectomy History of biliary duct stent placement S/P appendectomy S/P cholecystectomy Family History Other CAD (coronary artery disease) Social History Smoking and tobacco status: never smoked Alcohol intake: never Physical Exam Const: COMMON NORMALS: patient oriented x3 GENERAL APPEARANCE: cooperative OTHER: In moderate discomfort nausea, epigastric pain. HENMT: COMMON NORMALS: oropharynx normal Neck/C-Spine: COMMON NORMALS: no JVD Resp: COMMON NORMALS: normal respiratory effort and clear to auscultation bilaterally AUSCULTATION: clear to auscultation bilaterally Cardio: COMMON NORMALS: no JVD, regular rhythm, S1 normal heart sound present, S2 normal heart sound present and No murmurs present (Cardio) RHYTHM: regular rhythm HEART SOUNDS: S1 normal heart sound present and S2 normal heart sound present GI: COMMON NORMALS: Normal to inspection, nondistended, normoactive bowel s ounds present, Soft to palpation and non-tender (She has very slight dry heaving on palpation of epigastrium, otherwise her demeanor did not change significantly with palpation of the rest of the abdomen) PALPATION: Yes Soft to palpation Extremity: COMMON NORMALS: no joint enlargement and no pedal edema Neuro: COMMON NORMALS: patient oriented x3 and moves all extremities Skin: COMMON NORMALS: no rashes or lesions noted GENERAL SKIN EXAM: no rashes or lesions noted Data : 04/12/20 12:50 04/12/20 12:50 Attestations Medical Necessity Statement*: Place in observation. Other Attestations: 74-year-old lady with stage III pancreatic adenocarcinoma status post initially stenting due to pancreatic mass and biliary obstruction, subsequently Whipple procedure and lymph node resection at [facility] in December 2019, following with Dr. Malone in office, with plans for initiation of chemotherapy, although so far has not yet received any treatments. Has been having recurrent episodes of abdominal/epigastric pain, nausea, vomiting, with previous admission back in February, at which time had CT abdomen pelvis, and assessed also by MRCP to exclude bile duct obstruction. She was noted to be eating fast, and this was thought most likely contributing to her symptoms. She was instructed to take small frequent meals. Her symptoms improved with just conservative management at that time. She followed up with her oncologist on 04/02 in office with moderate abdominal pain at that time with concern for possible ileus versus obstruction. She returns to the ER today with nausea, vomiting starting this morning, and was having some chest discomfort/tightness yesterday which continues through today. We are completing troponin EKG series, although at this time there is no sign of acute ischemia. Mild troponin elevation possibly secondary to chronic mismatch and demand supply. At this time does not appear to have sepsis, there are no signs of bowel ischemia. Epigastric pain appears perhaps secondary to gastritis or PUD, although denies taking any NSAIDs, possibly secondary to post operative changes, slow transit, adhesions, versus possibility of acute on chronic pancreatitis, with low lipase, pancreatic atrophy noted on CT. She denies any changes in bowel habits. CT abdomen pelvis without finding of obstruction or perforation. With noted stable postoperative changes. No findings of seroma, abscess or empyema. Does have hepatomegaly with diffusely heterogenous appearance of the liver. Does endorse history of hepatitis C which she says was treated in the past, but does not know whether had been cured. This may need additional follow-up in office. At this time we are assessing her more closely for hypothyroidism as she did have abnormal TSH last admission as well. Her history is somewhat patchy, and is not entirely clear that she is taking her medications as prescribed. Will increase her PPI dose to twice daily. She does have iron deficiency anemia which was noted during last admission as well. This may be secondary to pancreaticoduodenectomy resulting in subsequent iron deficiency. Would benefit from iron supplementation. We will also check Hemoccult. Otherwise for now symptomatic management with antinausea medication, gentle IV hydration. Continue sucralfate. N.p.o. Unfortunately if this is some mild acute on chronic pancreatitis, lipase will not be helpful. Will reassess symptomatically in the morning. Per discussion with her oncologist, will assess CT of the head, with persistent nausea, vomiting, to exclude any large intracranial mass/metastatic lesion. If no mass is identified, her oncologist asks that a port access be obtained. This would be useful as she also is a very difficult stick per discussion with ER physician who has seen her multiple david es, and obtaining IV access is always a problem including this hospitalization requiring multiple attempts and with IV access easily lost. Appreciate surgical evaluation with regards to this. Patient was seen and examined independently of medical student. Above note and findings reviewed with student. During my evaluation as per examination above which I performed, she is awake and alert, in some discomfort secondary to nausea. She is lucid. Appears slightly dehydrated, with dry MM. Poor dentition. RRR, no M/R/G Lungs clear to auscultation Abdomen soft, nontender, although with some mild dry heaving exhibited on palpation of epigastrium No peripheral edema No rash Coding Level of Care Code Acute Career Guidance Counselor for Chg Fwd Diagnoses Abdominal pain R10.84 Abdominal location: generalized Vomiting R11.10 Hepatitis C B19.20 Hypothyroidism E03.9 History of biliary duct stent placement Z98.890 Pancreatic cancer C25.9 Hypertension I10 GERD (gastroesophageal reflux disease) K21.9
--- NOTE | 2020-04-12 16:28 | XRR_ITS ---
PROCEDURE INFORMATION: Exam: XR Chest, 1 View Exam date and time: 04/12/2020 4:50 PM Age: 74 years old Clinical indication: Other: Nausea/vomiting/abd pain/chest discomfort; Patient HX: Chest discomfort x 2 days/ nausea-vomiting/abd pain. HX of pancreatic cancer TECHNIQUE: Imaging protocol: XR of the chest Views: 1 view. COMPARISON: CR XR chest 1V portable [id number] 03/04/2020 3:53 PM FINDINGS: Lungs: No pneumonia or pulmonary edema. Pleural space: No pleural effusion or pneumothorax. Heart/Mediastinum: The cardiac silhouette is not enlarged. The mediastinal contours are normal. Diaphragm: There is pre-existing elevation of the right hemidiaphragm versus and eventration, Bones/joints: S-shaped curvature of the thoracolumbar spine with multilevel degenerative changes. Intraperitoneal space: No pneumoperitoneum. XR/XR chest 1V portable [id number] IMPRESSION: No acute abnormality.
--- NOTE | 2020-04-12 16:57 | CTR_ITS ---
PROCEDURE INFORMATION: Exam: CT Head Without Contrast Exam date and time: 04/12/2020 5:32 PM Age: 74 years old Clinical indication: Patient HX: C/O persistent n/v HX of pancreatic CA; Additional info: Persistent nausea/vomiting TECHNIQUE: Imaging protocol: Computed tomography of the head without contrast. Radiation optimization: All CT scans at this facility use at least one of these dose optimization techniques: automated exposure control; mA and/or kV adjustment per patient size (includes targeted exams where dose is matched to clinical indication); or iterative reconstruction. COMPARISON: CT head wo con* [id number] 11/15/2018 6:08 PM RADIATION DOSE METRICS: Total DLP (mGy-cm): 661.72 FINDINGS: Brain: Normal. No hemorrhage. Unremarkable white matter. No mass effect. Ventricles: Normal. No ventriculomegaly. Bones/joints: Unremarkable. No acute fracture. Sinuses: There is mild mucosal thickening in the sinuses. No air-fluid levels. 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 The right mastoid air cells are clear. Soft tissues: Unremarkable. CT/CT head wo con* [id number] IMPRESSION: No acute intracranial abnormality. Radiation Dose CTDIVOL = (mGy): DLP = 661.72 (mGy-cm)
--- NOTE | 2020-04-12 17:16 | ECG_ITS ---
[facility] Test Date: 2020-04-12 Pat Name: Amada Metz Department: Room: 275 Gender: Female Blender Operator: : 1945 Requested By: Mckenzie Rodriguez Order Number: [id number] Braden MD: Lawanda Bradley M.D. Measurements Intervals [place] Rate: 65 P: 58 HI: 137 QRS: 265 QRSD: 89 T: 39 QT: 448 QTc: 469 Interpretive Statements SINUS RHYTHM WITH OCCASIONAL VENTRICULAR PREMATURE COMPLEXES RIGHT VENTRICULAR HYPERTROPHY Compared to ECG 04/12/2020 13:07:54 Ventricular premature complex(es) now present Atrial abnormality now present Right ventricular hypertrophy now present Sinus bradycardia no longer present Incomplete right bundle-branch block no longer present Left anterior fascicular block no longer present Electronically Signed On 04-12-2020 16:47:13 CDT by Lawanda Bradley M.D. [email or web address]
[2020-04-12 18:01] LABS: Thyroid Stimulating Hormone 16.36 uIU/mL (0.27-4.20)
[2020-04-12] MEDS: lipase-protease-amylase Capsule 1 EACH PO (18:06)
[2020-04-12] MEDS: enoxaparin 40 mg/0.4 mL Syringe SUBCUT (18:06)
[2020-04-12] MEDS: sucralfate 1 gm/10 mL Oral Liq UDC PO ×2 (18:06→22:37)
[2020-04-12] MEDS: lactated ringers 1,000 ML 75 ML IV (18:07)
[2020-04-12] MEDS: pantoprazole 40 mg SDV IVP (18:08)
[2020-04-12 20:28] LABS: Free T4 Free Thyroxine 1.08 ng/dL (0.82-1.77)
[2020-04-12 20:35] LABS: Troponin 5 6HR 21.07 ng/L (0-10); Troponin 5 6HR Delta 5.07 ng/L (0-12)
[2020-04-12] MEDS: trazodone 150 mg Tablet PO (22:38)
[2020-04-12] MEDS: acetaminophen 325 mg Tablet 650 MG PO (23:16)
[2020-04-13] VITALS (11 sets, daily range): BP systolic 103–165; BP diastolic 51–81; PULSE 61–94; RESP 16–20; TEMP 36.4–37; O2SAT 92–98
--- NOTE | 2020-04-13 | SCC_ITS ---
Procedure Done: Port-A-Cath placement into the left subclavian vein with intraoperative fluoroscopy interpretation. 5.8 seconds of fluoroscopic guidance, for a cumulative dose of 0.71 mGy, was provided to Dr. Blount by the radiology department. C-arm images of the chest were saved for the patient's permanent record. CHRISTIE
[2020-04-13] MEDS: ondansetron 2 mg/ML SDV 2 mL 4 MG IVP (04:22)
[2020-04-13] MEDS: ketorolac 30 mg/mL INJ 15 MG IVP (04:22)
[2020-04-13 04:51] LABS: Basophils # 0.1 10^3/uL (0.0-0.1); Eosinophils # 0.1 10^3/uL (0.0-0.8); Hematocrit 35.7 % (37.0-47.0); Hemoglobin 11.3 g/dL (11.5-15.3); Lymphocytes # 1.9 10^3/uL (0.8-4.8); Lymphocytes % 28.3 %; Mean Corpuscular HGB Conc 31.7 g/dL (30.0-36.0); Mean Corpuscular Hemoglobin 25.6 pg (28.0-34.0); Mean Platelet Volume 10.1 fL (7.4-10.4); Monocytes # 0.5 10^3/uL (0.2-0.9); Monocytes % 7.6 %; Neutrophils % 61.7 %; Nucleated Red Blood Cells % 0 %; Platelet Count 303 10^3/cmm (130-400); Red Blood Count 4.41 10^6/uL (4.1-5.3); Red Cell Distribution Width 18.2 % (12.1-15.1); White Blood Count 6.8 10^3/uL (4.0-10.0)
[2020-04-13 05:16] LABS: Alanine Aminotransferase 69 U/L (0-33); Alkaline Phosphatase 245 IU/L (35-105); Anion Gap 14.4 (5-19); Aspartate Amino Transferase 83 U/L (0-32); Blood Urea Nitrogen 9 mg/dL (8-23); Calcium 9.8 mg/dL (8.5-10.5); Carbon Dioxide 21 mmol/L (22-29); Chloride 104 mmol/L (98-107); Globulin 2.9 g/dL (1.3-4.6); Glucose 121 mg/dL (65-115); Osmolality Calculated 279 mOsm/kg (285-295); Potassium 3.4 mmol/L (3.5-5.1); Sodium 136 mmol/L (136-145); Total Bilirubin 0.9 mg/dL (0.15-1.2); Total Protein 6.9 g/dL (6.6-8.7)
[2020-04-13] MEDS: pantoprazole 40 mg SDV IVP (06:21)
[2020-04-13] MEDS: sucralfate 1 gm/10 mL Oral Liq UDC PO ×2 (06:21→11:06)
[2020-04-13] MEDS: lactated ringers 1,000 ML 75 ML IV ×2 (06:21→10:30)
--- NOTE | 2020-04-13 07:54 | P.CONIM_ITS ---
Providers/Reason For Consult Consulting Physican/Specialty*: General Surgery Jason Blount MD Reason for Consult*: Requesting Port-A-Cath placement. Attending Physician: Pavan Dubose Primary Care Provider: Fiona Henriquez History of Present Illness History of Present Illness Amada Metz is a 74 year old female diagnosed with pancreatic cancer earlier this year. She underwent biliary stent placement earlier in the year and then underwent a pancreaticoduodenectomy in [place] in December. She has been admitted on a couple different occasions for intractable nausea, some abdominal pain, etc. She has improved with conservative measures. The patient and her oncologist, Dr. Malone, have discussed chemotherapy. She has agreed to proceed with this, but there is a need for her to have a Port-A-Cath in place. She also has very poor peripheral venous access which has become more and more of an issue. I have been asked to discuss a Port-A-Cath placement with the patient while she is here in the hospital. Review of Systems General: Reports: 10 or more systems reviewed and unremarkable except in HPI and below Const: Denies: fever(s) GI: Reports: abdominal pain and nausea Meds/Allergies Home Medications and Allergies Home Medications Medication Instructions Recorded Confirmed Last Taken Type cetirizine 10 mg PO DAILY 09/25/19 04/12/20 04/11/20 History levothyroxine 88 mcg PO DAILY 09/25/19 04/12/20 04/11/20 History omeprazole 40 mg PO DAILY 09/25/19 04/12/20 04/11/20 History trazodone 150 mg PO BEDTIME PRN 09/25/19 04/12/20 04/11/20 History tramadol 50 mg PO DAILY 14 Days #14 tab 11/12/19 04/12/20 04/11/20 Rx duloxetine 30 mg PO DAILY 02/27/20 04/12/20 04/11/20 History ondansetron 4 mg PO Q6H PRN #14 tab 02/28/20 04/12/20 Unknown Rx oxycodone 10 mg PO Q8H PRN #20 tab 02/28/20 04/12/20 03/03/20 Rx [id number] [Zenpep] 1 ea PO TIDWM #30 cap 03/03/20 04/12/20 04/11/20 Rx sucralfate 1 g PO AC&BEDTIME #100 ml 03/03/20 04/12/20 04/11/20 Rx Allergies Allergy/AdvReac Type Severity Reaction Status Date / Time gabapentin Allergy Unknown Verified 04/12/20 10:56 morphine Allergy Unknown Verified 04/12/20 10:56 pregabalin [From Lyrica] Allergy Unknown Verified 04/12/20 10:56 Current Medications Current Medications Generic Name Dose Route Start Last Admin Trade Name Freq PRN Reason Stop Dose Admin Acetaminophen 650 mg 04/12/20 16:30 04/12/20 23:16 Tylenol PO 650 mg Q6H PRN Administration Mild/Mod Pain Or Temp >/= 101 Lipase/Protease/Amylase 1 each 04/12/20 18:00 04/12/20 18:06 Zenpep PO 1 each TIDWM JENNI Administration Enoxaparin Sodium 40 mg 04/12/20 17:00 04/12/20 18:06 Lovenox SUBCUT 40 mg Q24H JENNI Administration Lactated Ringer's 1,000 mls @ 75 mls/hr 04/12/20 16:30 04/13/20 06:21 Lactated Ringers IV 75 mls/hr .[id number] JENNI Administration Ondansetron HCl 4 mg 04/12/20 15:08 04/13/20 04:22 Zofran IVP 4 mg Q6H PRN Administration NAUSEA AND VOMITING Pantoprazole Sodium 40 mg 04/12/20 16:30 04/13/20 06:21 Protonix IVP 40 mg Q12H JENNI Administration Sucralfate 1 gm 04/12/20 17:00 04/13/20 06:21 Carafate Oral Liq PO 1 gm AC&BEDTIME JENNI Administration Trazodone HCl 150 mg 04/12/20 16:30 04/12/20 22:38 Desyrel PO 150 mg BEDTIME PRN Administration Sleep PFSH Acute PFSH: Medical History (Updated 04/13/20 @ 07:59 by Jason Blount MD) GERD (gastroesophageal reflux disease) Hepatitis C Hypertension Hypothyroidism Pancreatic cancer Surgical History (Updated 04/13/20 @ 07:59 by Jason Blount MD) H/O resection of pancreas Pancreaticoduodenectomy 12/2019 --[place] H/O: hysterectomy History of biliary duct stent placement History of tonsillectomy Right femoral fracture Status post repair with grecia S/P appendectomy S/P bilateral cataract extraction S/P cholecystectomy Family History Other CAD (coronary artery disease) Social History Smoking and tobacco status: never smoked Alcohol intake: never Vitals/I&O/Wt Last Vital Signs Temp 98.5 F 04/13/20 04:00 Pulse 94 04/13/20 05:09 Resp 17 04/13/20 04:00 BP 159/72 04/13/20 04:00 Pulse Ox 98 04/13/20 05:09 04/12/20 04/13/20 04/13/20 22:59 06:59 14:59 Intake Total 917.5 / 917.5 Output Total 150 / 1600 1450 / 1600 Balance -150 / -682.5 -532.5 / -682.5 Weight last 48 hrs Weight 120 lb Physical Exam Narrative: EXAM NARRATIVE: The patient was encountered in her hospital room. She was resting but was easily arousable. The pupils are equal. No carotid bruits are heard. The lungs are clear anteriorly. The heart is regular. The abdomen reveals a well-healed upper midline incision. She has some scattered tenderness but no obvious masses. The extremities reveal no edema. Neurologically the patient is grossly intact. A&P Assessment and plan (1) Pancreatic cancer: Dr. Malone and the patient have discussed chemotherapy and the patient would like to proceed. Dr. Malone is indicated she will need a Port-A-Cath for this purpose. Status: Acute (2) Poor intravenous access: The patient has very poor peripheral venous access and it is very difficult for nursing to even establish an IV. A Port-A-Cath will hopefully make this less problematic. I have discussed Port-A-Cath and Port-A-Cath placement with the patient in detail. Risks of pneumothorax with possible need for chest tube, bleeding, infection, thrombosis, etc. were all gone over. The patient seems to understand and would like to proceed with Port-A-Cath placement today. She has been n.p.o. this morning. Status: Acute Consult Attestations Medical Necessity Statement: See admitting service's notation. Coding Level of Care Code Acute Manager Of Change for g Fwd Diagnoses Pancreatic cancer C25.9 Poor intravenous access Z78.9
--- NOTE | 2020-04-13 08:30 | ANES.PREANE2 ---
Pre-Anesthetic Assessment Pre-Anesthetic Assessment: Height/Weight: Height 1.63 m Weight 54.431 kg Temp Pulse Resp BP Pulse Ox 97.8 F 74 16 133/51 98 04/13/20 07:54 04/13/20 07:54 04/13/20 07:54 04/13/20 07:54 04/13/20 07:54 Social: Social History: No alcohol and No tobacco History/ROS: No significant history except as noted Pulmonary: Pulmonary: None reported CV/HEM: CV/HEM: HTN : : None reported Hepatic: Hepatic: Hepatitis (C, s/p tx) GI: GI: GERD (occ) Metabolic: Metabolic: Thyroid Musc/skel: Musc/skel: OA/DJD Neuropsych: Neuropsych: None reported Anesthetic Plan: ASA status: 3 Anesthesia: Anesthesia Evaluation and MAC Risk of > 500 ml blood loss (7ml/kg in children): No Meds/Allergies Current Medications: Current Medications Generic Name Dose Route Start Last Admin Trade Name Freq PRN Reason Stop Dose Admin Acetaminophen 650 mg 04/12/20 16:30 04/12/20 23:16 Tylenol PO 650 mg Q6H PRN Administration Mild/Mod Pain Or Temp >/= 101 Lipase/Protease/Am ylase 1 each 04/12/20 18:00 04/12/20 18:06 Zenpep PO 1 each TIDWM JENNI Administration Enoxaparin Sodium 40 mg 04/12/20 17:00 04/12/20 18:06 Lovenox SUBCUT 40 mg Q24H JENNI Administration Lactated Ringer's 1,000 mls @ 75 ml s/hr 04/12/20 16:30 04/13/20 06:21 Lactated Ringers IV 75 mls/hr .[id number] JENNI Administration Ondansetron HCl 4 mg 04/12/20 15:08 04/13/20 04:22 Zofran IVP 4 mg Q6H PRN Administration NAUSEA AND VOMITI NG Pantoprazole Sodiu m 40 mg 04/12/20 16:30 04/13/20 06:21 Protonix IVP 40 mg Q12H JENNI Administration Sucralfate 1 gm 04/12/20 17:00 04/13/20 06:21 Carafate Oral Li q PO 1 gm AC&BEDTIME JENNI Administration Trazodone HCl 150 mg 04/12/20 16:30 04/12/20 22:38 Desyrel PO 150 mg BEDTIME PRN Administration Sleep PFSH Anesthesia PFSH: Medical History GERD (gastroesophageal reflux disease) Hepatitis C Hypertension Hypothyroidism Pancreatic cancer Surgical History H/O resection of pancreas Pancreaticoduodenectomy 12/2019 --[place] H/O: hysterectomy / BSO History of biliary duct stent placement History of tonsillectomy Right femoral fracture Status post repair with grecia S/P appendectomy S/P bilateral cataract extraction S/P cholecystectomy Family History Other CAD (coronary artery disease) Social History Smoking and tobacco status: never smoked Alcohol intake: never Data Anesthesia CBC & Chem 7: 04/13/20 04:23 04/13/20 04:23 Other Labs: Laboratory Results - last 48 hr 04/12/20 04/12/20 04/12/20 11:11 12:50 12:50 WBC 5.5 RBC 4.32 Hgb 10.7 L Hct 34.0 L MCV 78.7 L MCH 24.8 L MCHC 31.5 RDW 18.1 H Plt Count 345 MPV 9.9 Neut % (Auto) 67.0 Lymph % (Auto) 24.8 [place] % (Auto) 5.8 Eos % (Auto) 0.7 Baso % (Auto) 1.3 Neut # (Auto) 3.68 Lymph # (Auto) 1.4 [place] # (Auto) 0.3 Eos # (Auto) 0.0 Baso # (Auto) 0.1 Nucleated RBC % (auto) 0 Nucleated RBCs # 0.0 Sodium 133 L Potassium 3.4 L Chloride 105 Carbon Dioxide 15 L Anion Gap 16.4 BUN 13 Creatinine 0.6 GFR Calculation Not Reportable Glucose 135 H Calculated Osmolality 274 L Lactic Acid Calcium 9.1 Magnesium 1.7 Total Bilirubin 0.8 AST 91 H ALT 74 H Alkaline Phosphatase 238 H Troponin T Baseline Troponin T 120 Minute Delta Troponin T Troponin T Hi Sens 6Hr Troponin T Hi Sens 6Hr Delta Total Protein 6.6 Albumin 3.8 Globulin 2.8 Lipase 3 L TSH Free T4 Urine Color Yellow Urine Appearance Cloudy Urine pH 5.0 Ur Specific [place] 1.025 Urine Protein Neg Urine Glucose (UA) Norm Urine Ketones 1+ H Urine Blood 1+ H Urine Nitrate Negative Urine Bilirubin Neg Urine Urobilinogen 1 H Ur Leukocyte Esterase 1+ H Urine RBC 0-4 H Urine WBC 0-4 H Ur Squamous Epith Cells 40-55 H Calcium Oxalate Crystal 25-40 H Amorphous Sediment Not Reportable Urine Bacteria 2+ H Urine Mucus 1+ 04/12/20 04/12/20 04/12/20 12:50 12:50 12:50 WBC RBC Hgb Hct MCV MCH MCHC RDW Plt Count MPV Neut % (Auto) Lymph % (Auto) [place] % (Auto) Eos % (Auto) Baso % (Auto) Neut # (Auto) Lymph # (Auto) [place] # (Auto) Eos # (Auto) Baso # (Auto) Nucleated RBC % (auto) Nucleated RBCs # Sodium Potassium Chloride Carbon Dioxide Anion Gap BUN Creatinine GFR Calculation Glucose Calculated Osmolality Lactic Acid 1.2 Calcium Magnesium Total Bilirubin AST ALT Alkaline Phosphatase Troponin T Baseline 16 H Troponin T 120 Minute Delta Troponin T Troponin T Hi Sens 6Hr Troponin T Hi Sens 6Hr Delta Total Protein Albumin Globulin Lipase TSH 16.36 H Free T4 Urine Color Urine Appearance Urine pH Ur Specific [place] Urine Protein Urine Glucose (UA) Urine Ketones Urine Blood Urine Nitrate Urine Bilirubin Urine Urobilinogen Ur Leukocyte Esterase Urine RBC Urine WBC Ur Squamous Epith Cells Calcium Oxalate Crystal Amorphous Sediment Urine Bacteria Urine Mucus 04/12/20 04/12/20 04/12/20 14:59 15:30 15:30 WBC RBC Hgb Hct MCV MCH MCHC RDW Plt Count MPV Neut % (Auto) Lymph % (Auto) [place] % (Auto) Eos % (Auto) Baso % (Auto) Neut # (Auto) Lymph # (Auto) [place] # (Auto) Eos # (Auto) Baso # (Auto) Nucleated RBC % (auto) Nucleated RBCs # Sodium Potassium Chloride Carbon Dioxide Anion Gap BUN Creatinine GFR Calculation Glucose Calculated Osmolality Lactic Acid Calcium Magnesium Total Bilirubin AST ALT Alkaline Phosphatase Troponin T Baseline Troponin T 120 Minute Cancelled 17.78 H Delta Troponin T Cancelled 1.78 Troponin T Hi Sens 6Hr Troponin T Hi Sens 6Hr Delta Total Protein Albumin Globulin Lipase TSH Free T4 1.08 Urine Color Urine Appearance Urine pH Ur Specific [place] Urine Protein Urine Glucose (UA) Urine Ketones Urine Blood Urine Nitrate Urine Bilirubin Urine Urobilinogen Ur Leukocyte Esterase Urine RBC Urine WBC Ur Squamous Epith Cells Calcium Oxalate Crystal Amorphous Sediment Urine Bacteria Urine Mucus 04/12/20 04/13/20 04/13/20 20:03 04:23 04:23 WBC 6.8 RBC 4.41 Hgb 11.3 L Hct 35.7 L MCV 81.0 MCH 25.6 L MCHC 31.7 RDW 18.2 H Plt Count 303 MPV 10.1 Neut % (Auto) 61.7 Lymph % (Auto) 28.3 [place] % (Auto) 7.6 Eos % (Auto) 1.0 Baso % (Auto) 1.0 Neut # (Auto) 4.20 Lymph # (Auto) 1.9 [place] # (Auto) 0.5 Eos # (Auto) 0.1 Baso # (Auto) 0.1 Nucleated RBC % (auto) 0 Nucleated RBCs # 0.0 Sodium 136 Potassium 3.4 L Chloride 104 Carbon Dioxide 21 L Anion Gap 14.4 BUN 9 Creatinine 0.7 GFR Calculation Not Reportable Glucose 121 H Calculated Osmolality 279 L Lactic Acid Calcium 9.8 Magnesium Total Bilirubin 0.9 AST 83 H ALT 69 H Alkaline Phosphatase 245 H Troponin T Baseline Troponin T 120 Minute Delta Troponin T Troponin T Hi Sens 6Hr 21.07 H Troponin T Hi Sens 6Hr Delta 5.07 Total Protein 6.9 Albumin 4.0 Globulin 2.9 Lipase TSH Free T4 Urine Color Urine Appearance Urine pH Ur Specific [place] Urine Protein Urine Glucose (UA) Urine Ketones Urine Blood Urine Nitrate Urine Bilirubin Urine Urobilinogen Ur Leukocyte Esterase Urine RBC Urine WBC Ur Squamous Epith Cells Calcium Oxalate Crystal Amorphous Sediment Urine Bacteria Urine Mucus Cardiac Studies: No Data to Display
--- NOTE | 2020-04-13 09:00 | SC_ITS ---
WS: [id number] C-ARM RADIOGRAPHS CHEST; 2 IMAGES HISTORY: port a cath COMPARISON: None available. Intraoperative imaging during Port-A-Cath placement. SC/C-arm [place] CVA [id number] IMPRESSION: Intraoperative imaging during Port-A-Cath placement.
[2020-04-13] MEDS: sodium chloride 0.9% SDV 10 mL 20 ML (09:16)
[2020-04-13] MEDS: heparin,porcine 1,000 unit/mL INJ 1 mL 2000 UNIT (09:20)
--- NOTE | 2020-04-13 09:38 | PM.OP ---
Operative Report Date of procedure: April 13, 2020 Pre-op Diagnosis: . Pancreatic cancer, chemotherapy pending.2. Poor peripheral venous access. Post-op diagnosis: same Procedure Done: Port-A-Cath placement into the left subclavian vein with intraoperative fluoroscopy interpretation. Surgeon: Jason Blount Anesthesia: MAC Estimated blood loss (mL): 5 Complications: None. Condition: stable Disposition: PACU Procedure: The patient was brought to the Operating Room and was placed in a supine position on the operating room table. A monitored anesthetic was induced. The shoulders were extended by means of a posterior shoulder roll. The anterior surface of the chest and neck were prepped and draped in a sterile fashion. 1% lidocaine was used to anesthetize a small area underneath the left clavicle. The subclavian vein was accessed with a needle and syringe as evidenced by the return of dark nonpulsatile blood. The J-wire was passed down the needle and the needle was removed. The C-arm was positioned and showed the wire extending down the vena cava. A site just inferiorly on the chest wall was anesthetized using a combination of 1% lidocaine and 0.5% bupivacaine with 1:200,000 parts of epinephrine. A transverse incision was made and an inferior pocket was created in the subcutaneous layer using cautery in preparation for port placement. The Port-A-Cath tubing was passed from the incision through the subcutaneous layer to the exit point of the J-wire. The tubing was attached to the port and was cut to an appropriate length. The introducer and sheath were passed over the J-wire, and the introducer and J-wire were removed. The Port-A-Cath tubing was passed down the sheath, which was torn away. The C-arm was positioned and showed good placement of the Port-A-Cath tubing tip in the superior vena cava. The port aspirated easily and flushed well with hep flush solution. The port was sewn in place with some interrupted sutures of 3-0 PDS. The transverse incision was closed at the dermis using a single inverted suture of 3-0 Vicryl and the skin was approximated using a running subcuticular suture of 4-0 Vicryl. The small incision under the clavicle at the previous insertion site of the J wire was closed using a single inverted suture of 4-0 Vicryl. Benzoin and Steri-Strips were placed over the incisions and a sterile bandage followed. The patient was taken to the recovery area in stable condition postoperatively. INTRAOPERATIVE FLUOROSCOPY FINDINGS: Intraoperative fluoroscopic images of a Port-A-Cath placement were reviewed. An initial image reveals a J-wire entering the left subclavian vein and extending down the vena cava. Subsequent images reveal a Port-A-Cath on that side of the chest with its tubing tip in good location in the superior vena cava. No obvious pneumothorax is identified.
[2020-04-13] MEDS: TRAMadol 50 mg Tablet PO (10:31)
[2020-04-13] MEDS: cetirizine 10 mg Tablet PO (10:31)
[2020-04-13] MEDS: lipase-protease-amylase Capsule 1 EACH PO (10:32)
[2020-04-13] MEDS: levothyroxine 100 mcg Tablet PO (10:34)
--- NOTE | 2020-04-13 11:34 | PC.CHAP ---
Pastoral Care Encounter/Spiritual Assessment Type of Contact [] Declined accounts receivable specialist visit [] Patient/Family/Request visit [] Outpatient visit [] Follow-up visit [] Physician referral [] Code/Alert [X] Routine visit [] Staff referral [] Actively dying [] Patient sleeping [] Family support [] [] Out of room [] Palliative care [] [] Receiving care in room [] Pre-surgical visit [] Trauma [] Long length of stay [] ICU visit [] Other: Relational/Emotional Strength [X] Patient feels connected with others/family/visitors/staff [] Distress [] Loneliness/isolation [] Abandonment Spirituality of Patient [] Person of Essence [] Attends Orthodox of their Essence [X] Believes in Prayer [] Reads Bible or Faith materials [] There are Spiritual issues to be addressed Out Of Town Collection Clerk Interventions [] Prayer [X] Active listening [X] Non-anxious presence [] Spiritual/emotional support [] Crisis/trauma care [] Spiritual counseling [] Bereavement support [] Provided bereavement packet [] Provided Bible/devotional materials [] Provided toy/stuffed animal, coloring book to patient or family member [] Provided Communion [] Anointing/Zoar [] Salvation [] Completed spiritual assessment [] Other: Impact on Illness or Injury [] Angry [] Fearful [] Anxious [] Often cries [] Exhaustion [] Unable to work [] Unable to attend confucianism [] Unable to walk/stand [] Unable to read [] Unable to drive [] Unable to eat/drink [] Unable to sleep [] Unable to be with family [] Patient intubated [] Other: Summary: I had visited with this patient during a previous hospitalization about one month ago. We remembered one another so it was easy to pick remover again. Before I could pray for her at bedside and complete her spiritual assessment, her nurse came into the room. I told her that I would keep her in prayer and stop by tomorrow if she is not yet discharged. Time spent with patient: 5 mins
--- NOTE | 2020-04-13 12:11 | USR_ITS ---
PROCEDURE INFORMATION: Exam: US Abdomen, Limited; Right Upper Quadrant Exam date and time: 04/13/2020 1:11 PM Age: 74 years old Clinical indication: Abnormal findings; Abnormal lab test; Elevated liver enzymes; Prior surgery; Surgery type: Cholecystectomy, resection of pancreas, hysterectomy, h/o biliary stent placement; Additional info: Bile duct and liver evaluation due to rise in ap TECHNIQUE: Imaging protocol: US abdomen. Real time ultrasound with image documentation. Limited exam focused on the right upper quadrant. COMPARISON: US gall bladder [id number] 03/01/2020 4:58 PM FINDINGS: Liver: The liver measures approximately 18 cm in the sagittal plane (my measurement). Diffuse increase in the liver parenchymal echogenicity in the near field, with diminished through transmission, consistent with diffuse fatty change. No focal liver mass or intrahepatic biliary ductal dilatation. Gallbladder: Prior cholecystectomy. Common bile duct: The common bile duct measures 4 mm in diameter. Pancreas: The pancreas was sought but not visualized. Right kidney: The right kidney measures 11.5 cm in length. Normal parenchymal echogenicity. No hydronephrosis. Aorta: Atherosclerotic but not aneurysmal visualized abdominal aorta. Portal venous: There is hepatopetal flow in the main portal vein on Doppler evaluation. Inferior vena cava: The visualized portion of the inferior vena cava is within normal limits. US/US abdomen limited [id number] IMPRESSION: Fatty liver. No biliary ductal dilatation.
[2020-04-13] MEDS: magnesium sulfate premix 2 GM/50 ML PIGGYBACK IV (12:41)
[2020-04-13] MEDS: potassium chloride premix 40 MEQ/100 ML PREMIX 25 MEQ IV (13:45)
--- NOTE | 2020-04-13 14:28 | PM.DCS ---
Discharge Providers Date of Admission: 04/12/20 15:08 Date of Discharge: April 13, 2020 Attending Provider at Admission: Pavan Dubose Attending Provider at Discharge: Pavan Dubose Primary Care Provider: Fiona Henriquez Diagnoses at Discharge Discharge Diagnosis (1) Pancreatic cancer: Status: Acute (2) Vomiting: Status: Acute (3) Abdominal pain: Status: Acute Qualifiers: Abdominal location: generalized Qualified Code(s): R10.84 - Generalized abdominal pain (4) Hypothyroidism: Status: Acute (5) Iron deficiency anemia: Status: Acute (6) Hepatitis C: Status: Acute (7) Poor intravenous access: Status: Acute Reason for Visit Reason for Visit: nausea, vomiting, abd pain Hospital Course Hospital Course: Pleasant 74-year-old lady with stage III pancreatic adenocarcinoma status post initially stenting due to pancreatic mass and biliary obstruction, subsequently Whipple procedure and lymph node resection at [facility] in December 2019, following with Dr. Malone in office, with plans for initiation of chemotherapy, although so far has not yet received any treatments. Has been having recurrent episodes of abdominal/epigastric pain, nausea, vomiting, with previous admission back in February, at which time had CT abdomen pelvis, and assessed also by MRCP to exclude bile duct obstruction. She was noted to be eating fast, and this was thought most likely contributing to her symptoms. She was instructed to take small frequent meals. Her symptoms improved with just conservative management at that time. She followed up with her oncologist on 04/02 in office with moderate abdominal pain at that time with concern for possible ileus versus obstruction. She returned to ER 04/12 with nausea, vomiting, and was having some chest discomfort/tightness the night before which continued through 04/12. Troponin EKG series were not suggestive of acute LA. Mild troponin elevation noted, discussed with patient, suspected secondary to mismatch and demand and supply. CT abdomen pelvis performed in ER showed stable postoperative changes after the pancreaticoduodenectomy. It did not show any abscess or accumulation of fluid or any worsening of possible seroma noted on MRCP during last admission. She was managed conservatively with gentle IV hydration, with increase of PPI to twice daily dosing given by IV in the hospital, symptomatic nausea management. She was maintained n.p.o. She did report that she was eating dinner quite quickly the night before which was brought to her by somebody, and so this again may have contributed to her symptoms. She has chronic elevation of liver parameters, with alkaline phosphatase around 200, although this was noted somewhat higher this admission, and so right upper quadrant ultrasound was performed, without finding of any bile duct dilation. She is noted to have iron deficiency anemia, diagnosed during prior admission. This may be secondary to the Whipple procedure, with iron malabsorption, however, Hemoccult was ordered, although she did not provide us with a sample, so please follow-up with regards to this on outpatient side, repeat Hemoccult, and consider additional investigation depending on results. She is for now started on iron replacement. She is also noted to be hypothyroid, despite levothyroxine replacement, with TSH of 16, and so levothyroxine dose at this time is increased to 100 mcg. Please reassess her thyroid function in due time and adjust dosing accordingly. Due to plans for initiation of chemotherapy, as well as poor venous access noted in ER, and this appears to be recurrent problem during ER visits, additional venous access was obtained by placement of a left chest port. She may follow-up with oncology clinic for reassessment of the port, but if there are any issues please refer to see Dr. Blount in office. Today she had reported feeling much better. She has had no further nausea or vomiting. After ultrasound she has tolerated oral intake with some Jell-O. Please continue to encourage her to only take small meals, slowly, and spread them through the day. Please also follow-up with regards to fatty liver disease as noted on abdominal ultrasound with heterogenous liver infiltration seen on CT, reassess liver parameters, and help her mitigate risk factors, maintain usual follow-up with reassessments for progression to fibrosis/cirrhosis. Physical Exam Const: COMMON NORMALS: patient oriented x3 GENERAL APPEARANCE: cooperative and comfortable ORIENTATION/CONSCIOUSNESS: Yes awake OTHER: In much better spirits this morning. More energetic. HENMT: COMMON NORMALS: oropharynx normal Neck/C-Spine: COMMON NORMALS: no JVD Chest: OTHER: Left chest port covered by clean dressing. Resp: COMMON NORMALS: normal respiratory effort and clear to auscultation bilaterally AUSCULTATION: clear to auscultation bilaterally Cardio: COMMON NORMALS: no JVD, regular rhythm, S1 normal heart sound present, S2 normal heart sound present and No murmurs present (Cardio) RHYTHM: regular rhythm HEART SOUNDS: S1 normal heart sound present and S2 normal heart sound present GI: COMMON NORMALS: Normal to inspection, nondistended, normoactive bowel sounds present, Soft to palpation and non-tender (No dry heaving or pain.) PALPATION: Yes Soft to palpation Extremity: COMMON NORMALS: no joint enlargement and no pedal edema Neuro: COMMON NORMALS: patient oriented x3 and moves all extremities Skin: COMMON NORMALS: no rashes or lesions noted GENERAL SKIN EXAM: no rashes or lesions noted Discharge Data Data Completed and Pending: Completed Studies During Hospitalization Category Date Time Status CT abdomen pelvis wo con [id number] Stat Cat Scan 04/12/20 11:[address] head wo con* 7 0450 Routine Cat Scan 04/12/20 16:57 Completed XR chest 1V edith ble [id number] Routine Exams 04/12/20 16:28 Completed CV guide vascular access [id number] Urge nt Ultrasound 04/12/20 13:53 Completed US abdomen limite d [id number] Routine Ultrasound 04/13/20 12:11 Completed Pending at discharge Category Date Time Status C-arm Fluoroscopy [id number] Routine Exams 04/13/20 09:00 Taken Labs from last 24 hours 04/13/20 04/13/20 04/12/20 04:23 04:23 20:03 WBC 6.8 RBC 4.41 Hgb 11.3 L Hct 35.7 L MCV 81.0 MCH 25.6 L MCHC 31.7 RDW 18.2 H Plt Count 303 MPV 10.1 Neut % (Auto) 61.7 Lymph % (Auto) 28.3 Maverick % (Auto) 7.6 Eos % (Auto) 1.0 Baso % (Auto) 1.0 Neut # (Auto) 4.20 Lymph # (Auto) 1.9 Maverick # (Auto) 0.5 Eos # (Auto) 0.1 Baso # (Auto) 0.1 Nucleated RBC % (a uto) 0 Nucleated RBCs # 0.0 Sodium 136 Potassium 3.4 L Chloride 104 Carbon Dioxide 21 L Anion Gap 14.4 BUN 9 Creatinine 0.7 GFR Calculation Not Reportable Glucose 121 H Calculated Osmolal ity 279 L Calcium 9.8 Total Bilirubin 0.9 AST 83 H ALT 69 H Alkaline Phosphata se 245 H Troponin T 120 Min isidoro Delta Troponin T Troponin T Hi Sens 6Hr 21.07 H Troponin T Hi Sens 6Hr Delta 5.07 Total Protein 6.9 Albumin 4.0 Globulin 2.9 TSH Free T4 04/12/20 04/12/20 04/12/20 15:30 15:30 14:59 WBC RBC Hgb Hct MCV MCH MCHC RDW Plt Count MPV Neut % (Auto) Lymph % (Auto) Maverick % (Auto) Eos % (Auto) Baso % (Auto) Neut # (Auto) Lymph # (Auto) Maverick # (Auto) Eos # (Auto) Baso # (Auto) Nucleated RBC % (a uto) Nucleated RBCs # Sodium Potassium Chloride Carbon Dioxide Anion Gap BUN Creatinine GFR Calculation Glucose Calculated Osmolal ity Calcium Total Bilirubin AST ALT Alkaline Phosphata se Troponin T 120 Min isidoro 17.78 H Cancelled Delta Troponin T 1.78 Cancelled Troponin T Hi Sens 6Hr Troponin T Hi Sens 6Hr Delta Total Protein Albumin Globulin TSH Free T4 1.08 04/12/20 12:50 WBC RBC Hgb Hct MCV MCH MCHC RDW Plt Count MPV Neut % (Auto) Lymph % (Auto) Maverick % (Auto) Eos % (Auto) Baso % (Auto) Neut # (Auto) Lymph # (Auto) Maverick # (Auto) Eos # (Auto) Baso # (Auto) Nucleated RBC % (a uto) Nucleated RBCs # Sodium Potassium Chloride Carbon Dioxide Anion Gap BUN Creatinine GFR Calculation Glucose Calculated Osmolal ity Calcium Total Bilirubin AST ALT Alkaline Phosphata se Troponin T 120 Min isidoro Delta Troponin T Troponin T Hi Sens 6Hr Troponin T Hi Sens 6Hr Delta Total Protein Albumin Globulin TSH 16.36 H Free T4 Vitals: Last Vital Signs Temp 97.6 F 04/13/20 11:14 Pulse 69 04/13/20 11:14 Resp 18 04/13/20 11:14 BP 120/73 04/13/20 11:14 Pulse Ox 96 04/13/20 11:14 Discharge Plan Discharge Patient Disposition: Home Condition: Stable Prescriptions: New Levoxyl 100 mcg Tablet 100 mcg PO DAILY Qty: 30 RF: 0 ferrous sulfate 325 mg (65 mg iron) tablet 325 mg PO EVERY OTHER DAY Qty: 15 RF: 0 Continued cetirizine 10 mg Tablet 10 mg PO DAILY RF: 0 trazodone 150 mg Tablet 150 mg PO BEDTIME PRN (Reason: Sleep) RF: 0 duloxetine 30 mg Capsule,Delayed Release(Dr/Ec) 30 mg PO DAILY RF: 0 oxycodone 10 mg tablet 10 mg PO Q8H PRN (Reason: pain) Qty: 20 RF: 0 ondansetron 4 mg tablet,disintegrating 4 mg PO Q6H PRN (Reason: nausea and vomiting) Qty: 14 RF: 0 sucralfate 100 mg/mL Suspension 1 g PO AC&BEDTIME Qty: 100 RF: 0 Zenpep 5,000-17,000- 24,000 unit Capsule,Delayed Release(Dr/Ec) 1 ea PO TIDWM Qty: 30 RF: 0 tramadol 50 mg Tablet 50 mg PO DAILY 14 Days Qty: 14 RF: 0 Changed omeprazole 40 mg Capsule,Delayed Release(Dr/Ec) 40 mg PO BID Qty: 60 RF: 0 Discontinued levothyroxine 88 mcg Tablet 88 mcg PO DAILY RF: 0 Discharge Orders: Discharge Order (Routine); Ordered 04/13/20 Ordered By: Pavan Dubose Referrals: Fiona Henriquez FNP [Primary Care Provider] - 4-7 days (Recurrent N/V. Iron deficiency anemia. Pancreatic cancer. LFT abnormality.) Gurinder Malone MD [Staff Physician] - 1 week (Preparations for initiation of chemo) Discharge Diet: Advance as tolerated and As Directed Discharge Activity: Increase activity as tolerated Patient Instructions: Iron Supplements (By mouth), Levothyroxine (By mouth), Hepatitis C, Hypertension, Iron Rich Diet (DC), Heart Healthy Diet (DC), Gastroesophageal Reflux Disease (DC) Activity Restrictions/Additional Instructions: Please eat slowly, eat smaller meals and space out throughout the day. This appears to contribute significantly to your symptoms of abdominal discomfort nausea and vomiting, as your GI tract is not able to handle large amounts of food at once. Please follow-up with oncology clinic with Dr. Malone for reassessment of the port, as well as initiation of chemotherapy. You may take off the bandage from the port tomorrow. The Steri-Strips should fall off on their own within several days. You may shower tomorrow. Getting wet is okay but do not soak the wound. Please discuss with your primary care doctor iron deficiency anemia and discuss additional investigation options. Discussed Hemoccult stool testing to identify any hidden bleeding. The patient may be secondary to prior duodenal surgery, however, if intestinal bleeding is found to be ongoing, may need additional investigation to find the source. For now your acid clary medication dose is increased to twice daily dosing as it is suspected there may be some inflammation in your stomach. Please follow-up with your primary care doctor to reassess the symptoms and consider whether additional investigation is needed. Please avoid any NSAIDs like ibuprofen, Aleve, etc., which may worsen inflammation in the stomach. Please also follow-up with your doctor with regards to elevation of liver numbers and to confirm improvement. Please discuss with your doctor regarding hypothyroidism. Due to decreased thyroid function your levothyroxine dose is increased to 100 mcg/day. Discharge Attestations Time Spent in Discharge Care*: greater than 30 min Status at Discharge: Cognitive status at discharge: cognitively intact, Behavioral status at discharge: cooperative, Quality Metrics Clinical Quality Measures During this hospital stay, did patient experience: None Coding Level of Care Code Acute Cut Off Saw Operator Metal for Chg Fwd Diagnoses Pancreatic cancer C25.9 Vomiting R11.10 Abdominal pain R10.84 Abdominal location: generalized Hypothyroidism E03.9 Iron deficiency anemia D50.9 Hepatitis C B19.20 Poor intravenous access Z78.9
[2020-04-13] MEDS: potassium chloride ER 10 mEq Tablet 40 MEQ PO (15:12)
--- NOTE | 2020-04-13 15:37 | PC.NURSE ---
DISCHARGE INSTRUCTIONS DISCHARGE INSTRUCTIONS GIVEN PER THIS NURSE - DR LINDQUIST INFORMATION PROVIDED TO PT - INSTRUCTIONS GIVEN FOR PAC PER BOTH THIS NURSE AND DR MAYA WHO WAS AT BEDSIDE DURING INSTRUCTIONS
== END 2020-04-13 16:57 | disposition home or self-care (01) ==
LOC: ER 15:37 → MEDSURG 16:09
PROVIDERS: Emergency Medicine; Surgery; Admitting Provider Internal Medicine; PCP Nurse Practitioner Primary Care; Visit Provider Internal Medicine
PROC: (CPT 36571; principal; 2020-04-13 10:00)
DX: C25.9 Malignant neoplasm of pancreas, unspecified (principal); R10.84 Generalized abdominal pain; R11.10 Vomiting, unspecified; B19.20 Unspecified viral hepatitis C without hepatic coma; E03.9 Hypothyroidism, unspecified; Z98.890 Other specified postprocedural states; I10 Essential (primary) hypertension; K21.9 Gastro-esophageal reflux disease without esophagitis; Z78.9 Other specified health status; D50.9 Iron deficiency anemia, unspecified; M19.90 Unspecified osteoarthritis, unspecified site; Z82.49 Family history of ischemic heart disease and other diseases of the circulatory system
CPT/HCPCS: 36571; 12345; 36415; 70450; 71045; 74176; 76000; 76705; 76937; 77001; 80053; 81001; 83605; 83690; 83735; 84439; 84443; 84484; 85025; 93005; 96361; 96365; 96366; 96372; 96375; 99284; 99285; C1788; C9113; G0378; J1100; J1170; J1644; J1650; J1885; J2250; J2405; J2704; J2765; J3010; J3475; J3480; J3490; J7030; J7799

== ENCOUNTER 2020-04-15 11:07 | Emergency (ER) | payer MEDICAID, SELFPAY ==
[2020-04-15] VITALS (7 sets, daily range): BP systolic 161–186; BP diastolic 78–95; PULSE 52–76; RESP 18; TEMP 36.7; O2SAT 95–100; BMI 20.7
--- NOTE | 2020-04-15 11:43 | W.ED.NAVMDI ---
HPI - Nausea/Vomiting/Diarrhea General: Chief complaint: Nausea/Vomiting/Diarrhea Stated complaint: N/V Time Seen by Provider: 04/15/20 11:10 History of Present Illness: HPI Narrative: This patient is a 74-year-old female with pancreatic cancer. She has undergone a Whipple procedure. She has not yet started chemotherapy. She has had recurrent episodes of nausea and vomiting. She has diffuse abdominal pain. She was hospitalized on the and just discharged yesterday. She thinks that she may have eaten too much and now she is having symptoms again. She appears quite uncomfortable. MD elicited complaint: nausea, vomiting, diarrhea and abdominal pain Pertinent past history: abdominal surgery and other (Pancreatic cancer) Onset (ago): hour(s) (4, after eating breakfast) Description of vomiting: other (Yellow mucus) Associated nausea: Yes Associated abdominal pain: Yes Location of pain: Diffuse Pain consistency: constant Severity: severe Quality: sharp Exacerbating factors: eating Relieving factors: none Associated symtoms: Reports fatigue, malaise and nausea; Denies change in vision, chest pain or headache(s) Review of Systems General: Reports: 10 or more systems reviewed and unremarkable except in HPI and below Const: Reports: fatigue and malaise; Denies: fever(s) or chills Eyes: Denies: change in vision ENMT: Denies: odynophagia Card: Denies: chest pain or swelling of feet/ankles Resp: Denies: dyspnea, productive cough or non-productive cough GI: Reports: abdominal pain, nausea, vomiting and diarrhea : Denies: flank pain or difficulty voiding Musc: Denies: neck pain or back pain Skin/Breast: Denies: rash Neuro: Denies: headache(s), numbness in extremities or weakness in extremities Ariel/Lymph: Denies: easy bruising or easy bleeding PFSH ED PFSH: Medical History GERD (gastroesophageal reflux disease) Hepatitis C Hypertension Hypothyroidism Pancreatic cancer Surgical History H/O resection of pancreas Pancreaticoduodenectomy 12/2019 --[place] H/O: hysterectomy / BSO History of biliary duct stent placement History of tonsillectomy Right femoral fracture Status post repair with grecia S/P appendectomy S/P bilateral cataract extraction S/P cholecystectomy Family History Other CAD (coronary artery disease) Social History Smoking and tobacco status: never smoked Alcohol intake: never Physical Exam Const: COMMON NORMALS: patient oriented x3, no limitations and alert GENERAL APPEARANCE: cooperative, in distress, anxious and frail appearing HENMT: HEAD & SCALP: normal to inspection FACE & SINUS: normal facial exam Eye: GENERAL EYE: appearance normal, both eyes and all related structures Neck/C-Spine: COMMON NORMALS: supple, no meningeal signs and no JVD Chest: COMMONS NORMALS: normal inspection of the chest Resp: COMMON NORMALS: normal respiratory effort, No use of accessory muscles and clear to auscultation bilaterally AUSCULTATION: clear to auscultation bilaterally Cardio: COMMON NORMALS: no JVD, regular rate, regular rhythm and No murmurs present (Cardio) RATE: regular rate RHYTHM: regular rhythm GI: COMMON NORMALS: Normal to inspection, nondistended, normoactive bowel sounds present INSPECTION: Yes normal to inspection PALPATION: Yes Tenderness to palpation present (GI) (Diffusely tender, no guarding) Back/Pelvis: COMMON NORMALS: thoracic and lumbar spine normal to inspection Extremity: COMMON NORMALS: normal to inspection Neuro: COMMON NORMALS: patient oriented x3, moves all extremities, no focal motor deficits and no sensory deficits noted SENSORIUM/ORIENTATION: Yes alert MENINGEAL SIGNS: Yes no meningeal signs Psych: COMMON NORMALS: mental status grossly normal, cooperative and normal affect Skin: COMMON NORMALS: no rashes or lesions noted and turgor normal GENERAL SKIN EXAM: no rashes or lesions noted and turgor normal Course ED course: Patient with chronic episodes of vomiting related to her pancreatic cancer and Whipple procedure. She admits that she may have eaten too much as a trigger. She wants to go home if she can and she was treated symptomatically in the ED. When she tolerated fluids she was able to go home. Vital Signs: Vital signs: Vital Signs Temperature 98.1 F 04/15/20 11:18 Pulse Rate 76 04/15/20 16:55 Respiratory Rate 18 04/15/20 16:55 Blood Pressure 179/83 04/15/20 16:55 Pulse Oximetry 95 04/15/20 16:55 MDM - Nausea/Vomiting/Diarrhea Lab Data: Labs: Lab Results 04/15/20 04/15/20 04/15/20 Range/Units 11:56 11:56 11:56 WBC Cancelled Corrected WBC Cancelled RBC Cancelled Hgb Cancelled Hct Cancelled MCV Cancelled MCH Cancelled MCHC Cancelled RDW Cancelled Plt Count Cancelled MPV Cancelled Gran % Cancelled Neut % (Auto) Cancelled Lymph % (Auto) Cancelled Coke % (Auto) Cancelled Eos % (Auto) Cancelled Baso % (Auto) Cancelled Neut # (Auto) Cancelled Lymph # (Auto) Cancelled Coke # (Auto) Cancelled Eos # (Auto) Cancelled Baso # (Auto) Cancelled Absolute Gran (aut o) Cancelled Nucleated RBC % (a uto) Cancelled Nucleated RBCs # Cancelled Sodium 134 L (136-145) mmol/L Potassium 3.4 L (3.5-5.1) mmol/L Chloride 105 (98-107) mmol/L Carbon Dioxide 18 L (22-29) mmol/L Anion Gap 14.4 (5-19) BUN 15 (8-23) mg/dL Creatinine 0.6 (0.5-0.9) mg/dL GFR Calculation Not Reportable Glucose 134 H (65-115) mg/dL Calculated Osmolal ity 276 L (285-295) mOsm/k g Lactate 1.4 (0.5-2.2) mmol/L Calcium 8.8 (8.5-10.5) mg/dL Total Bilirubin 0.8 (0.15-1.2) mg/dL AST 105 H (0-32) U/L ALT 72 H (0-33) U/L Alkaline Phosphata se 248 H (35-105) IU/L Total Protein 6.8 (6.6-8.7) g/dL Albumin 3.8 (3.5-5.2) g/dL Globulin 3.0 (1.3-4.6) g/dL Lipase 4 L (13-60) U/L 04/15/20 Range/Units 12:44 WBC 6.9 Corrected WBC RBC 3.90 L Hgb 9.9 L Hct 32.0 L MCV 82.1 MCH 25.4 L MCHC 30.9 RDW 18.7 H Plt Count 233 MPV 9.9 Gran % Neut % (Auto) 78.7 Lymph % (Auto) 13.6 Coke % (Auto) 5.5 Eos % (Auto) 0.7 Baso % (Auto) 1.2 Neut # (Auto) 5.40 Lymph # (Auto) 0.9 Coke # (Auto) 0.4 Eos # (Auto) 0.1 Baso # (Auto) 0.1 Absolute Gran (aut o) Nucleated RBC % (a uto) 0 Nucleated RBCs # 0.0 Sodium (136-145) mmol/L Potassium (3.5-5.1) mmol/L Chloride (98-107) mmol/L Carbon Dioxide (22-29) mmol/L Anion Gap (5-19) BUN (8-23) mg/dL Creatinine (0.5-0.9) mg/dL GFR Calculation Glucose (65-115) mg/dL Calculated Osmolal ity (285-295) mOsm/k g Lactate (0.5-2.2) mmol/L Calcium (8.5-10.5) mg/dL Total Bilirubin (0.15-1.2) mg/dL AST (0-32) U/L ALT (0-33) U/L Alkaline Phosphata se (35-105) IU/L Total Protein (6.6-8.7) g/dL Albumin (3.5-5.2) g/dL Globulin (1.3-4.6) g/dL Lipase (13-60) U/L Discharge Plan Discharge Patient Disposition: Home Clinical Impression: Pancreatic cancer Qualifiers: Pancreatic malignancy location: unspecified Qualified Code(s): C25.9 - Malignant neoplasm of pancreas, unspecified Vomiting Qualifiers: Vomiting type: unspecified Vomiting Intractability: unspecified Nausea presence: unspecified Qualified Code(s): R11.10 - Vomiting, unspecified Condition: Stable Prescriptions: No Action cetirizine 10 mg Tablet 10 mg PO DAILY RF: 0 trazodone 150 mg Tablet 150 mg PO BEDTIME PRN (Reason: Sleep) RF: 0 duloxetine 30 mg Capsule,Delayed Release(Dr/Ec) 30 mg PO DAILY RF: 0 oxycodone 10 mg tablet 10 mg PO Q8H PRN (Reason: pain) Qty: 20 RF: 0 ondansetron 4 mg tablet,disintegrating 4 mg PO Q6H PRN (Reason: nausea and vomiting) Qty: 14 RF: 0 sucralfate 100 mg/mL Suspension 1 g PO AC&BEDTIME Qty: 100 RF: 0 Zenpep 5,000-17,000- 24,000 unit Capsule,Delayed Release(Dr/Ec) 1 ea PO TIDWM Qty: 30 RF: 0 levothyroxine [Levoxyl] 100 mcg Tablet 100 mcg PO DAILY Qty: 30 RF: 0 omeprazole 40 mg Capsule,Delayed Release(Dr/Ec) 40 mg PO BID Qty: 60 RF: 0 ferrous sulfate 325 mg (65 mg iron) tablet 325 mg PO EVERY OTHER DAY Qty: 15 RF: 0 tramadol 50 mg Tablet 50 mg PO DAILY 14 Days Qty: 14 RF: 0 Discharge Orders: Discharge Order (Routine); Ordered 04/15/20 Ordered By: Marleny Cordero Referrals: Fiona Henriquez FNP [Primary Care Provider] - Activity Restrictions/Additional Instructions: Follow-up with your outpatient providers. Return to the ER if worsening pain, fever, persistent vomiting. Make sure to eat small meals throughout the day rather than eating 1 meal which is too large or eating too fast. 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
[2020-04-15] MEDS: ondansetron 2 mg/ML SDV 2 mL 4 MG IVP (11:58)
[2020-04-15] MEDS: HYDROmorphone 1 mg/mL INJ 1 mL 0.5 MG IVP (11:59)
[2020-04-15 12:21] LABS: Lactate (Lactic Acid level) 1.4 mmol/L (0.5-2.2)
[2020-04-15 12:27] LABS: Alanine Aminotransferase 72 U/L (0-33); Albumin Level 3.8 g/dL (3.5-5.2); Alkaline Phosphatase 248 IU/L (35-105); Anion Gap 14.4 (5-19); Aspartate Amino Transferase 105 U/L (0-32); Blood Urea Nitrogen 15 mg/dL (8-23); Calcium 8.8 mg/dL (8.5-10.5); Carbon Dioxide 18 mmol/L (22-29); Chloride 105 mmol/L (98-107); Glucose 134 mg/dL (65-115); Lipase 4 U/L (13-60); Osmolality Calculated 276 mOsm/kg (285-295); Potassium 3.4 mmol/L (3.5-5.1); Sodium 134 mmol/L (136-145); Total Bilirubin 0.8 mg/dL (0.15-1.2); Total Protein 6.8 g/dL (6.6-8.7)
[2020-04-15 12:49] LABS: Basophils # 0.1 10^3/uL (0.0-0.1); Basophils % 1.2 %; Eosinophils # 0.1 10^3/uL (0.0-0.8); Eosinophils % 0.7 %; Hemoglobin 9.9 g/dL (11.5-15.3); Lymphocytes # 0.9 10^3/uL (0.8-4.8); Lymphocytes % 13.6 %; Mean Corpuscular HGB Conc 30.9 g/dL (30.0-36.0); Mean Corpuscular Hemoglobin 25.4 pg (28.0-34.0); Mean Corpuscular Volume 82.1 fL (81-99); Mean Platelet Volume 9.9 fL (7.4-10.4); Monocytes # 0.4 10^3/uL (0.2-0.9); Monocytes % 5.5 %; Neutrophils % 78.7 %; Nucleated Red Blood Cells % 0 %; Platelet Count 233 10^3/cmm (130-400); Red Cell Distribution Width 18.7 % (12.1-15.1); White Blood Count 6.9 10^3/uL (4.0-10.0)
[2020-04-15] MEDS: famotidine 20 mg/2 mL INJ 40 MG IVP (14:26)
[2020-04-15] MEDS: metoclopramide 5 mg/mL SDV 2 mL IVP (14:32)
--- NOTE | 2020-04-15 14:39 | PC.NURSE ---
Assisted patient with a bedpan. NAD noted.
== END 2020-04-15 16:56 | disposition home or self-care (01) ==
PROVIDERS: Emergency Provider Emergency Medicine; PCP Nurse Practitioner Primary Care
DX: C25.9 Malignant neoplasm of pancreas, unspecified (principal); R11.10 Vomiting, unspecified; Z86.19 Personal history of other infectious and parasitic diseases; I10 Essential (primary) hypertension
CPT/HCPCS: 12345; 36415; 36591; 80053; 83605; 83690; 85025; 96374; 96375; 99282; 99283; 99284; C1751; J1170; J1642; J2405; J2765; J3490